=== PATIENT | male | born 1955 | race Caucasian/White ===

== ENCOUNTER 2023-10-31 09:04 | Inpatient (IN) ==
[2023-10-31] MEDS ORDERED: KETOROLAC TROMETHAMINE 15 MG/ML VIAL IV ONE (09:21)
[2023-10-31] MEDS ORDERED: SODIUM CHLORIDE 0.9% 500 ML IV STA (09:21)
--- NOTE | 2023-10-31 09:26 | Emergency Department Note ---
History of Present Illness General Chief complaint: Flank Pain Stated complaint: FLANK PAIN, BACK PAIN Time Seen by Provider: 10/31/23 09:12 Source: patient, family ( was at the bedside and driving), RN notes reviewed and old records reviewed Mode of arrival: ambulatory Limitations: no limitations History of Present Illness Maximum Pain Intensity: 8 This patient is a 68-year-old male who comes in after having right-sided flank pain which goes around to his groin. He tells me he has a known kidney stone there. He did have hematuria about a month ago a couple times but none recently no dysuria no fall or trauma he woke up today also feeling dizzy he does get vertigo and took meclizine and said he felt better. He says he gets it if he lays a certain way which he did. No chest pain or shortness of breath. No fever. His blood sugar was 150s this morning. 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 He has not had any imaging of his belly recently for stones. Home Medications Medication Instructions Recorded Confirmed Type omega-3 fatty acids-vitamin E 1 cap PO BID ##0 07/13/09 10/31/23 History 1,000 mg capsule [id number] 300 mcg-K 60 1 tab PO DAILY ##0 04/22/15 10/31/23 History mcg-lycop 600 mcg-lutein 300 mcg tablet (Centrum Silver Ultra Men's) atorvastatin 80 mg tablet 80 mg PO DAILY 10/31/23 10/31/23 History fenofibrate micronized 134 mg 134 mg PO QAM 10/31/23 10/31/23 History capsule ibuprofen 800 mg tablet 800 mg PO Q8H PRN Pain 10/31/23 10/31/23 History insulin aspart U-100 100 unit/mL See Rx Instructions .Route .COMPLEX 10/31/23 10/31/23 History (3 mL) subcutaneous pen (Novolog FlexPen U-100 Insulin aspart) insulin detemir U-100 100 unit/mL 65 unit subcut DAILY 10/31/23 10/31/23 History (3 mL) subcutaneous pen (Levemir FlexPen) lisinopril 30 mg tablet 30 mg PO QAM 10/31/23 10/31/23 History meclizine 25 mg tablet 25 mg PO TID PRN Vertigo 10/31/23 10/31/23 History metformin 1,000 mg tablet 1,000 mg PO BID 10/31/23 10/31/23 History semaglutide 2 mg/dose (8 mg/3 mL) 2 mg subcut WK 10/31/23 10/31/23 History subcutaneous pen injector (Ozempic) Allergies Allergy/AdvReac Type Severity Reaction Status Date / Time codeine Allergy Unknown PER PT, Verified 10/31/23 13:40 HAS TOLERATED PERCOCET morphine Allergy Unknown Unknown Verified 10/31/23 13:40 Past Med/Surg History Medical History Dyslipidemia HTN (hypertension) DM (diabetes mellitus), type 2 Surgical History H/O hand surgery S/P hip replacement Family History Other Heart disease Liver disease Social History Smoking Status: Never smoker Hx Alcohol Use: Yes Alcohol Intake Frequency: 2-4 x/Month Hx Substance Use: No Feels Safe at Home: Yes Immunizations: Past med historydiabetes, new problems, kidney stones. He is on no blood thinners Social history does not smoke or drink. Is followed locally by Dr. Waddell at [facility] . he does not have a local urology Review of Systems A total of 10 systems reviewed and were otherwise negative Physical Exam Vital Signs Vital Signs - 24 hr 10/31/23 09:08 10/31/23 11:49 10/31/23 11:51 Temperature 36.1 C L 36.6 C Temperature Source Temporal Artery Scan Oral Pulse Rate 76 Pulse Rate [Apical] 66 Pulse Rate [Left Finger] Pulse Rhythm [Apical] Regular Pulse Rhythm [Left Finger] Pulse Strength [Apical] Normal Pulse Strength [Left Finger] Respiratory Rate 16 18 Respiratory Effort / Characteristics Non-Labored Non-Labored Spontaneous Respiratory Depth Normal Normal Respiratory Pattern Regular Blood Pressure 185/95 H Blood Pressure [Left Arm] 151/80 H Blood Pressure Mean 125 Blood Pressure Mean [Left Arm] 103 Blood Pressure Position [Left Arm] Pulse Oximetry 96 94 94 Oxygen Delivery Method Room Air Room Air Sepsis Recent Fever Within 48 Hours No Sepsis New/Unexplained Change in Mental Status N/A Sepsis Action Taken by Nursing No Action Required 10/31/23 12:08 10/31/23 13:16 10/31/23 13:28 Temperature 36.3 C L 36.5 C Temperature Source Oral Oral Pulse Rate 71 Pulse Rate [Apical] 73 Pulse Rate [Left Finger] 70 Pulse Rhythm [Apical] Regular Pulse Rhythm [Left Finger] Regular Pulse Strength [Apical] Normal Pulse Strength [Left Finger] Normal Respiratory Rate 18 20 Respiratory Effort / Characteristics Non-Labored Spontaneous Non-Labored Spontaneous Respiratory Depth Normal Normal Respiratory Pattern Regular Regular Blood Pressure Blood Pressure [Left Arm] 167/76 H 162/76 H Blood Pressure Mean Blood Pressure Mean [Left Arm] 106 104 Blood Pressure Position [Left Arm] Sitting Pulse Oximetry 96 97 Oxygen Delivery Method Room Air Sepsis Recent Fever Within 48 Hours Sepsis New/Unexplained Change in Mental Status Sepsis Action Taken by Nursing General: Well developed well nourished older male who appears in no acute distress, breathing comfortably on room air. Normal speech HEENT: Normal cephalic atraumatic. Pupils are equal round and reactive to light. Extraocular movements are intact. Oropharynx is pink with moist mucous membranes. No swelling of the mouth lips or tongue. Neck: Supple with a midline trachea. No meningeal signs or stiffness, no JVD or bruits. No Stridor. Chest: Clear to auscultation bilaterally. No wheezes or rhonchi. No increased work of breathing. Heart: Regular rate and rhythm without murmurs or gallops. Abdomen: Soft nontender, nondistended without rebound guarding or rigidity. Extremities: No cyanosis clubbing or edema. No calf tenderness or assymetry Spine/Back. Non tender to palpation. No CVA tenderness Skin: Good turgor without rashes. Neurologic exam: Cranial nerves two through 12 are intact. Motor and sensation are intact and symmetrical throughout. Course Administered Medications Sodium Chloride (Nss) 1,000 mls @ 125 mls/hr IV .Q8H [facility] Stop: 10/31/23 20:44 Last Admin: 10/31/23 13:10 Dose: 125 mls/hr Documented By: GGG Discontinued Medications Cefazolin Sodium (Cefazolin 2,000 Mg/15 Ml Iv Push) Confirm Administered Dose 2,000 mg IV .[facility] Stop: 10/31/23 13:57 Last Admin: 10/31/23 14:27 Dose: Not Given Documented By: HBM Sodium Chloride (Nss) 500 mls @ 999 mls/hr IV .Q31M STA Stop: 10/31/23 09:51 Last Infusion: 10/31/23 10:17 Dose: Infused Documented By: Admin: 10/31/23 09:32 Dose: 999 mls/hr Documented By: CHARLES Cefazolin Sodium (Ancef 2000mg) 2,000 mg in 15 mls @ 3.75 mls/min IV PREOP@1400 ONE; Protocol Stop: 10/31/23 14:03 Last Admin: 10/31/23 14:23 Dose: 3.75 mls/min Documented By: REBA Ketorolac Tromethamine (Ketorolac Tromethamine 15 Mg/Ml Vial) 10 mg IV NOW ONE Stop: 10/31/23 09:22 Last Admin: 10/31/23 09:32 Dose: 10 mg Documented By: CHARLES Tamsulosin HCl (Tamsulosin Hcl 0.4 Mg Cap) 0.4 mg PO NOW ONE Stop: 10/31/23 12:42 Last Admin: 10/31/23 13:07 Dose: 0.4 mg Documented By: SHERYL Medical Decision Making Differential Diagnosis Kidney stone, UTI/kidney infection, electrolyte or metabolic abnormality, musculoskeletal, appendicitis, aneurysm, colitis, cardiac disease, vertigo Medical Records Attestation: I reviewed the patient's medical records. Home Medications Current Medication List: was personally reviewed by me Laboratory Data Attestation: I reviewed the patient's lab results. 10/31/23 09:29 10/31/23 09:29 Lab Results 10/31/23 10/31/23 Range/Units 09:29 13:15 WBC 11.83 H (4.8-10.8) K/ul RBC 4.72 (4.70-6.10) M/uL Hgb 14.5 (14.0-18.0) g/dl Hct 42.7 (42.0-52.0) % MCV 90.5 (80.0-100.0) fL MCH 30.7 (25.0-34.0) pg MCHC 34.0 (32.0-36.0) g/dL RDW Std Deviation 44.7 (36.4-46.3) fL RDW Coeff of Vimal 13.4 (11.5-14.5) % Plt Count 164 (130-400) K/uL MPV 10.1 (9.4-12.4) fL Immature Gran % (Auto) 0.3 % Neut % (Auto) 54.3 % Lymph % (Auto) 35.2 % [place] % (Auto) 9.1 % Eos % (Auto) 0.8 % Baso % (Auto) 0.3 % Neut # (Auto) 6.42 (1.40-6.50) K/uL Lymph # (Auto) 4.16 H (1.20-3.40) K/uL [place] # (Auto) 1.08 H (0.11-0.59) K/uL Eos # (Auto) 0.10 (0.00-0.50) K/uL Baso # (Auto) 0.03 (0.00-0.20) K/uL Immature Gran # (Auto) 0.04 (0.01-0.20) K/uL Sodium 139 (136-145) mmol/L Potassium 4.4 (3.5-5.1) mmol/L Chloride 105 (98-107) mmol/L Carbon Dioxide 23 (21-32) mmol/L Anion Gap 11 (3-11) BUN 20 (6-23) mg/dl Creatinine 1.38 (0.6-1.4) mg/dl Est Cr Clr Drug Dosing 62.0 ml/min Est GFR ( Amer) 59.6 ml/min Est GFR (Non-Af Amer) 51.4 ml/min BUN/Creatinine Ratio 14.5 (10-20) Glucose 178 H (70-99(Fasting)) mg/dl POC Glucose 103 H (70-99) mg/dl Calcium 9.7 (8.6-10.3) mg/dl Total Bilirubin 0.7 (0.2-1.0) mg/dl AST 31 (13-39) U/L ALT 45 (7-52) U/L Alkaline Phosphatase 37 (34-104) U/L Troponin I High Sens 5.7 (0-20) pg/ml Total Protein 7.7 (6.0-8.3) gm/dl Albumin 4.6 (3.4-5.0) gm/dl Globulin 3.1 (2.5-4.0) gm/dl Albumin/Globulin Ratio 1.5 (0.9-2) Lipase 42 (11-82) U/L Urine Color Yellow Urine Appearance Clear (Clear) Urine pH 5.5 (4.5-7.5) Ur Specific [place] 1.020 (1.000-1.030) Urine Protein Trace H (Negative) Urine Glucose (UA) 1+ H (Negative) Urine Ketones Negative (Negative) Urine Blood 3+ H (Negative) Urine Nitrite Negative (Negative) Urine Bilirubin Negative (Negative) Urine Urobilinogen Negative (Negative) Ur Leukocyte Esterase Negative (Negative) Urine WBC (Auto) 1-5 (0-5) /hpf Urine RBC (Auto) 10-30 H (0-4) /hpf U Hyaline Cast (Auto) 1-5 (0-5) /lpf U Epithel Cells (Auto) 0-5 (0-5) /lpf Urine Bacteria (Auto) Negative (Negative) Imaging Data Attestation: I personally reviewed and interpreted this imaging study as follows: My Impression: CT stone studythere is a proximal right ureteral stone. Radiologist's Impression: Abdomen/Pelvis CT 10/31/23 09:21 CT SCAN OF THE ABDOMEN AND PELVIS WITHOUT IV CONTRAST CLINICAL HISTORY: Right-sided flank pain. COMPARISON STUDY: Abdominal CT dated 07/13/2009 TECHNIQUE: CT scan of the abdomen and pelvis is performed from the lung bases to the proximal femora. Images are reviewed in the axial, sagittal, and coronal planes. IV contrast was not administered for this examination. A dose lowering technique was utilized adhering to the principles of ALARA. CT DOSE: 1497.43 mGy.cm FINDINGS: Lung bases: The heart is normal in size and without pericardial effusion. The coronary arteries are densely calcified. The lung bases are clear. Liver: The unenhanced liver is enlarged, measuring 19.3 cm in length. The liver demonstrates diffusely diminished attenuation indicating steatosis. Fatty sparing is seen adjacent to the gallbladder fossa. There is no intrahepatic biliary ductal dilatation. Gallbladder: Unremarkable. Spleen: Normal in size and attenuation. Pancreas: Unremarkable. Adrenal glands: Unremarkable. Kidneys: The unenhanced kidneys are normal in size. There is a 10 mm obstructing calculus in the right proximal ureter seen on image #173. This is located at the level of L3 and causes moderate right hydronephrosis. There is associated right- sided perinephric stranding and trace fluid. There are at least 3 additional nonobstructing right renal calculi which measure up to 5 mm. No left renal calculi are identified and there is no left hydronephrosis. There is no evidence of contour deforming renal mass lesion. Abdominal vasculature: The abdominal aorta is normal in course and caliber noting moderate atherosclerotic calcification. Bowel: There is moderate colonic diverticulosis without CT evidence of acute diverticulitis. No bowel obstruction is seen. A chronically torsed epiploic appendage is suggested adjacent to the sigmoid colon on image #257. The appendix is well-visualized and normal. Peritoneum: There is no intraperitoneal free air or abdominal ascites. Lymphadenopathy: There is haziness at the central mesentery with prominent subcentimeter mesenteric lymph nodes. No pathologically enlarged lymph nodes are identified in the abdomen or pelvis. Pelvic viscera: Evaluation of the pelvis is degraded by streak artifact from a left hip arthroplasty. The prostate gland is diminutive and heterogeneous. The bladder wall is thickened/trabeculated suggesting chronic outlet obstruction. There are small bilateral fat-containing inguinal hernias. Skeletal structures: The skeletal structures are osteopenic. There is mild to moderate lumbosacral spondylosis. No lytic or blastic lesions are seen. A left hip arthroplasty is in place. Arthritic changes seen of the right hip as well as the sacroiliac joints. There are chronic/healed right-sided rib fractures. IMPRESSION: 1. There is a 10 mm obstructing calculus in the right proximal ureter. This causes moderate right hydronephrosis. 2. Additional nonobstructing right renal calculi as above. 3. Hepatomegaly and hepatic steatosis. 4. There is nonspecific haziness throughout the central mesentery with prominent subcentimeter lymph nodes. This was not seen on 07/13/2009 and could represent a nonspecific panniculitis. Consider a precautionary follow-up abdominal CT scan in 6-12 months time for reassessment. 5. Additional findings as above. ACT 112: Negative or not required by law. Electronically signed by: Chapin Scott M.D. 10/31/2023 10:08 AM ECG Data Attestation: I personally reviewed and interpreted this ECG as follows: Indication: + weakness Rate (beats per minute): 71 Rhythm: + normal sinus ECG Intervals/blocks: + Normal QRS, + Normal QT and + Normal [place] ECG [place]: + Normal ECG ST segments: + Normal ST segments ECG Findings: no PACs or no PVCs Comparison ECG Date: from (12/19/2014) Change: no significant change MDM Narrative This patient comes in described above he was placed in room C3 he has been having right flank pain he says he had intermittently for about a month he has a known kidney stone although has not passed one for many years. No hematuria present but he had some earlier in the month. Also felt dizzy this morning otherwise feeling better after taking his meclizine. He has stable vital signs. IV access was established and he was hydrated with IV 500 cc normal saline bolus, he was given Toradol 10 mg IV. I did order multiple blood testing as well as CAT scan. An EKG was also obtained given dizziness as well as a troponin. His EKG does not have any ischemic changes or significant arrhythmia and no change compared to old. His troponin was not elevated and I do not think is likely cardiac. He has nothing to suggest infection based on his urine vital signs history and normal white count. His CAT scan does shows a large proximal stone. I did consult Marie from [facility] urology and she can come talk to the patient to discuss his options. He seems to doing much better with the Toradol. They have discussed the care with the patient and they are going to admit him for stent later today and asked the medical team to do the admission. [facility] going to [facility] the patient and admit the patient for further inpatient treatment and evaluation. Impression & Plan Kidney stone on right side, Flank Pain, Dizziness, Renal colic on right side Discharge Plan Visit Data Chief Complaint: Flank Pain Stated Complaint: FLANK PAIN, BACK PAIN ED Provider: Samuel Crane Discharge Problem: Kidney stone on right side, Flank Pain, Dizziness, Renal colic on right side Patient Disposition: Admitted As Inpatient Discharge Instructions Interventions: ED Discharge Assessment Last Done: 10/31/23 13:22 Forms Stand Alone Forms: My [facility] Prescriptions Prescriptions: No Action Fish Oil 1,000 mg Capsule 1 cap PO BID Qty: 0 Centrum Silver Ultra Men's [id number] mcg Tablet 1 tab PO DAILY Qty: 0 atorvastatin 80 mg tablet 80 mg PO DAILY ibuprofen 800 mg tablet 800 mg PO Q8H PRN (Reason: Pain) fenofibrate micronized 134 mg capsule 134 mg PO QAM metformin 1,000 mg tablet 1,000 mg PO BID lisinopril 30 mg tablet 30 mg PO QAM insulin aspart U-100 [Novolog FlexPen U-100 Insulin] 100 unit/mL (3 mL) insulin pen See Rx Instructions .ROUTE .COMPLEX Rx Instructions: inject 24 units under the skin with breakfast and 20 units with lunch and 30 units with supper. Per sliding scale Levemir FlexPen 100 unit/mL (3 mL) insulin pen 65 unit SUBCUT DAILY Ozempic 2 mg/dose (8 mg/3 mL) pen injector 2 mg SUBCUT WK Rx Instructions: takes on Friday meclizine 25 mg Tablet 25 mg PO TID PRN (Reason: Vertigo) Referrals Referrals: PCP,NO [Physician] -
[2023-10-31 09:50] LABS: Appearance Urine Clear (Clear); Bacteria Urine Automated Negative (Negative); Bilirubin Urine Negative (Negative); Blood Urine 3+ (Negative); Color Urine Yellow; Epithelial Cell Urine Auto 0-5 /lpf (0-5); Glucose Urine UA 1+ (Negative); Ketones Urine Negative (Negative); Leukocyte Esterase Urine Negative (Negative); Nitrite Urine Negative (Negative); Protein Urine Trace (Negative); Urobilinogen Urine Negative (Negative); pH Urine 5.5 (4.5-7.5)
[2023-10-31 09:53] LABS: Basophils # (auto) 0.03 K/uL (0.00-0.20); Basophils % (auto) 0.3 %; Eosinophils % (auto) 0.8 %; Hematocrit (blood only) 42.7 % (42.0-52.0); Hemoglobin 14.5 g/dl (14.0-18.0); Immature Granulocytes # (auto) 0.04 K/uL (0.01-0.20); Immature Granulocytes % (auto) 0.3 %; Lymphocytes # (auto) 4.16 K/uL (1.20-3.40); Lymphocytes % (auto) 35.2 %; Mean Corpuscular Hemoglobin 30.7 pg (25.0-34.0); Mean Corpuscular Volume 90.5 fL (80.0-100.0); Mean Platelet Volume 10.1 fL (9.4-12.4); Monocytes # (auto) 1.08 K/uL (0.11-0.59); Monocytes % (auto) 9.1 %; Neutrophils # (auto) 6.42 K/uL (1.40-6.50); Neutrophils % (auto) 54.3 %; Platelet Count 164 K/uL (130-400); RDW Coefficient of Variation 13.4 % (11.5-14.5); RDW Standard Deviation 44.7 fL (36.4-46.3); Red Blood Count 4.72 M/uL (4.70-6.10); White Blood Count 11.83 K/ul (4.8-10.8)
[2023-10-31 10:10] LABS: Albumin Globulin Ratio 1.5 (0.9-2); Albumin Level 4.6 gm/dl (3.4-5.0); BUN Creatinine Ratio 14.5 (10-20); Bilirubin,Total 0.7 mg/dl (0.2-1.0); Calcium 9.7 mg/dl (8.6-10.3); Est GFR (African American) 59.6 ml/min; Est GFR (Non-African American) 51.4 ml/min; Globulin 3.1 gm/dl (2.5-4.0); Potassium 4.4 mmol/L (3.5-5.1); Total Protein 7.7 gm/dl (6.0-8.3)
--- NOTE | 2023-10-31 10:10 | CT Scan Report ---
CT SCAN OF THE ABDOMEN AND PELVIS WITHOUT IV CONTRAST CLINICAL HISTORY: Right-sided flank pain. COMPARISON STUDY: Abdominal CT dated 07/13/2009 TECHNIQUE: CT scan of the abdomen and pelvis is performed from the lung bases to the proximal femora. Images are reviewed in the axial, sagittal, and coronal planes. IV contrast was not administered for this examination. A dose lowering technique was utilized adhering to the principles of ALARA. CT DOSE: 1497.43 mGy.cm FINDINGS: Lung bases: The heart is normal in size and without pericardial effusion. The coronary arteries are d ensely calcified. The lung bases are clear. Liver: The unenhanced liver is enlarged, measuring 19.3 cm in length. The liver demonstrates diffusel y diminished attenuation indicating steatosis. Fatty sparing is seen adjacent to the gallbladder loi a. There is no intrahepatic biliary ductal dilatation. Gallbladder: Unremarkable. Spleen: Normal in size and attenuation. Pancreas: Unremarkable. Adrenal glands: Unremarkable. Kidneys: The unenhanced kidneys are normal in size. There is a 10 mm obstructing calculus in the righ t proximal ureter seen on image #173. This is located at the level of L3 and causes moderate right hy dronephrosis. There is associated right-sided perinephric stranding and trace fluid. There are at [address] 3 additional nonobstructing right renal calculi which measure up to 5 mm. No left renal calculi ar e identified and there is no left hydronephrosis. There is no evidence of contour deforming renal mas s lesion. Abdominal vasculature: The abdominal aorta is normal in course and caliber noting moderate atheroscle rotic calcification. Bowel: There is moderate colonic diverticulosis without CT evidence of acute diverticulitis. No bowel obstruction is seen. A chronically torsed epiploic appendage is suggested adjacent to the sigmoid co phillip on image #257. The appendix is well-visualized and normal. Peritoneum: There is no intraperitoneal free air or abdominal ascites. Lymphadenopathy: There is haziness at the central mesentery with prominent subcentimeter mesenteric l ymph nodes. No pathologically enlarged lymph nodes are identified in the abdomen or pelvis. Pelvic viscera: Evaluation of the pelvis is degraded by streak artifact from a left hip arthroplasty. The prostate gland is diminutive and heterogeneous. The bladder wall is thickened/trabeculated sugge sting chronic outlet obstruction. There are small bilateral fat-containing inguinal hernias. Skeletal structures: The skeletal structures are osteopenic. There is mild to moderate lumbosacral sp ondylosis. No lytic or blastic lesions are seen. A left hip arthroplasty is in place. Arthritic ambrose es seen of the right hip as well as the sacroiliac joints. There are chronic/healed right-sided rib f ractures. IMPRESSION: 1. There is a 10 mm obstructing calculus in the right proximal ureter. This causes moderate right hyd ronephrosis. 2. Additional nonobstructing right renal calculi as above. 3. Hepatomegaly and hepatic steatosis. 4. There is nonspecific haziness throughout the central mesentery with prominent subcentimeter lymph nodes. This was not seen on 07/13/2009 and could represent a nonspecific panniculitis. Consider a prec autionary follow-up abdominal CT scan in 6-12 months time for reassessment. 5. Additional findings as above. ACT 112: Negative or not required by law. Electronically signed by: Chapin Scott M.D. 10/31/2023 10:08 AM
[2023-10-31 10:15] LABS: Troponin I High Sensitivity 5.7 pg/ml (0-20)
[2023-10-31] MEDS ORDERED: POLYETHYLENE (MIRALAX) 17 GM PACK PO PRN (11:55)
[2023-10-31] MEDS ORDERED: ONDANSETRON INJ 2 MG/ML 2 ML VIAL IV PRN ×2 (11:55→14:06)
[2023-10-31] MEDS ORDERED: ACETAMINOPHEN 500 MG TAB PO PRN (11:55)
--- NOTE | 2023-10-31 11:55 | History & Physical Report ---
Date of Service October 31, 2023 Assessment & Plan (1) Hydronephrosis with urinary obstruction due to ureteral calculus: (2) Renal colic on right side: Plan: This is a 68-year-old male with PMH of type 2 diabetes, hyperlipidemia, hypertension, history of fatty liver disease, osteoarthritis and other medical problems as below presents from home with flank pain and was found to have obstructing R ureteral stone. Progressively worsening R flank pain and renal colic over the past week Afebrile, mild leukocytosis at 11K, UA with 3+ urine blood, no evidence of infection CT abd/pelvis with a 10 mm obstructing calculus in the right proximal ureter. This causes moderate right hydronephrosis Urology evaluating in ED, keep NPO, IV fluids, bladder scan PRN, Flomax, PRN Pyridium, pain control (3) SHANEL (acute kidney injury): Plan: Cr elevated at 1.38 today (baseline ~ 1.0) 2/2 ureteral obstruction as above Hold AM lisinopril until repeat BMP in AM (4) DM (diabetes mellitus), type 2: Plan: A1c 8.0 on 10/03/23 Continue basal/bolus insulin regimen while in-patient Holding Ozempic BSG AC HS (5) HTN (hypertension): Plan: Elevated 2/2 pain. Not on any antihypertensives at home. Added PRN PO hydralazine (6) Abnormal CT of the abdomen: Plan: CT abd/pelvis with incidental finding of hepatomegaly and hepatic steatosis. Also with nonspecific haziness throughout the central mesentery with prominent subcentimeter lymph nodes. This was not seen on 07/13/2009 and could represent a nonspecific panniculitis. Consider a precautionary follow-up abdominal CT scan in 6-12 months time for reassessment (7) Dyslipidemia: Plan: Chronic, stable. Continue statin DVT Ppx: SCDs in preparation for possible OR Code status: FULL PCP: [facility] Dispo: Admit to med/surg Patient seen in collaboration with Dr. Marroquin. Please see addendum. History of Present Illness Chief Complaint: Flank pain Primary Care Provider: NO PCP This is a 68-year-old male with PMH of type 2 diabetes, hyperlipidemia, hypertension, history of fatty liver disease, osteoarthritis and other medical problems as below presents from home with flank pain. Developed pain of lower R back radiating forward to flank and R side of bladder that has progressed in severity over the past few days, prompting his visit to the ED. Pain has improved with Toradol in ED and mainly recurs with movement. Increased urinary urgency. In the past month, he reports 2 episodes of hematuria but has not noted any today. H/o kidney stones years ago. + Nauseated this morning but no vomiting. No fever, lightheadedness, headache, CP, SOB, abd pain, dysuria. No bowel movement in 2 days. Had episode of vertigo when he rolled over in bed and it resolved after repositioning a dose of meclizine. Allergies Allergy/AdvReac Type Severity Reaction Status Date / Time codeine Allergy Unknown PER PT, Verified 10/31/23 13:40 HAS TOLERATED PERCOCET morphine Allergy Unknown Unknown Verified 10/31/23 13:40 Home Medications Medication Instructions Recorded Confirmed Type omega-3 fatty acids-vitamin E 1 cap PO BID ##0 07/13/09 10/31/23 History 1,000 mg capsule [id number] 300 mcg-K 60 1 tab PO DAILY ##0 04/22/15 10/31/23 History mcg-lycop 600 mcg-lutein 300 mcg tablet (Centrum Silver Ultra Men's) atorvastatin 80 mg tablet 80 mg PO DAILY 10/31/23 10/31/23 History fenofibrate micronized 134 mg 134 mg PO QAM 10/31/23 10/31/23 History capsule ibuprofen 800 mg tablet 800 mg PO Q8H PRN Pain 10/31/23 10/31/23 History insulin aspart U-100 100 unit/mL See Rx Instructions .Route .COMPLEX 10/31/23 10/31/23 History (3 mL) subcutaneous pen (Novolog FlexPen U-100 Insulin aspart) insulin detemir U-100 100 unit/mL 65 unit subcut DAILY 10/31/23 10/31/23 History (3 mL) subcutaneous pen (Levemir FlexPen) lisinopril 30 mg tablet 30 mg PO QAM 10/31/23 10/31/23 History meclizine 25 mg tablet 25 mg PO TID PRN Vertigo 10/31/23 10/31/23 History metformin 1,000 mg tablet 1,000 mg PO BID 10/31/23 10/31/23 History semaglutide 2 mg/dose (8 mg/3 mL) 2 mg subcut WK 10/31/23 10/31/23 History subcutaneous pen injector (Ozempic) Past Med/Surg History Medical History Dyslipidemia HTN (hypertension) DM (diabetes mellitus), type 2 Surgical History H/O hand surgery S/P hip replacement Family History Other Heart disease Liver disease Social History Smoking Status: Never smoker Hx Alcohol Use: Yes Alcohol Intake Frequency: 2-4 x/Month Hx Substance Use: No Feels Safe at Home: Yes Review of Systems Review of Systems: At least ten systems reviewed and negative except as noted in the HPI. Physical Exam Physical Exam: Please see Dr. Marroquin's addendum for physical exam. Results & Data Results & Data Vital Signs (Past 12 Hours) Vital Signs Temp Pulse Pulse Resp BP BP Pulse Ox 10/31/23 11:51 94 10/31/23 11:49 36.6 C 66 18 151/80 H 94 10/31/23 09:08 36.1 C L 76 16 185/95 H 96 O2 Del Method 10/31/23 11:51 Room Air 10/31/23 11:49 Room Air 10/31/23 09:08 Laboratory Results Abdomen/Pelvis CT 10/31/23 09:21 CT SCAN OF THE ABDOMEN AND PELVIS WITHOUT IV CONTRAST CLINICAL HISTORY: Right-sided flank pain. COMPARISON STUDY: Abdominal CT dated 07/13/2009 TECHNIQUE: CT scan of the abdomen and pelvis is performed from the lung bases to the proximal femora. Images are reviewed in the axial, sagittal, and coronal planes. IV contrast was not administered for this examination. A dose lowering technique was utilized adhering to the principles of ALARA. CT DOSE: 1497.43 mGy.cm FINDINGS: Lung bases: The heart is normal in size and without pericardial effusion. The coronary arteries are densely calcified. The lung bases are clear. Liver: The unenhanced liver is enlarged, measuring 19.3 cm in length. The liver demonstrates diffusely diminished attenuation indicating steatosis. Fatty sparing is seen adjacent to the gallbladder fossa. There is no intrahepatic biliary ductal dilatation. Gallbladder: Unremarkable. Spleen: Normal in size and attenuation. Pancreas: Unremarkable. Adrenal glands: Unremarkable. Kidneys: The unenhanced kidneys are normal in size. There is a 10 mm obstructing calculus in the right proximal ureter seen on image #173. This is located at the level of L3 and causes moderate right hydronephrosis. There is associated right- sided perinephric stranding and trace fluid. There are at least 3 additional nonobstructing right renal calculi which measure up to 5 mm. No left renal calculi are identified and there is no left hydronephrosis. There is no evidence of contour deforming renal mass lesion. Abdominal vasculature: The abdominal aorta is normal in course and caliber noting moderate atherosclerotic calcification. Bowel: There is moderate colonic diverticulosis without CT evidence of acute diverticulitis. No bowel obstruction is seen. A chronically torsed epiploic appendage is suggested adjacent to the sigmoid colon on image #257. The appendix is well-visualized and normal. Peritoneum: There is no intraperitoneal free air or abdominal ascites. Lymphadenopathy: There is haziness at the central mesentery with prominent subcentimeter mesenteric lymph nodes. No pathologically enlarged lymph nodes are identified in the abdomen or pelvis. Pelvic viscera: Evaluation of the pelvis is degraded by streak artifact from a left hip arthroplasty. The prostate gland is diminutive and heterogeneous. The bladder wall is thickened/trabeculated suggesting chronic outlet obstruction. There are small bilateral fat-containing inguinal hernias. Skeletal structures: The skeletal structures are osteopenic. There is mild to moderate lumbosacral spondylosis. No lytic or blastic lesions are seen. A left hip arthroplasty is in place. Arthritic changes seen of the right hip as well as the sacroiliac joints. There are chronic/healed right-sided rib fractures. IMPRESSION: 1. There is a 10 mm obstructing calculus in the right proximal ureter. This causes moderate right hydronephrosis. 2. Additional nonobstructing right renal calculi as above. 3. Hepatomegaly and hepatic steatosis. 4. There is nonspecific haziness throughout the central mesentery with prominent subcentimeter lymph nodes. This was not seen on 07/13/2009 and could represent a nonspecific panniculitis. Consider a precautionary follow-up abdominal CT scan in 6-12 months time for reassessment. 5. Additional findings as above. ACT 112: Negative or not required by law. Electronically signed by: Chapin Scott M.D. 10/31/2023 10:08 AM Diagnostic Findings Short CBC 10/31/23 Range/Units 09:29 WBC 11.83 H (4.8-10.8) K/ul Hgb 14.5 (14.0-18.0) g/dl Hct 42.7 (42.0-52.0) % Plt Count 164 (130-400) K/uL BMP 10/31/23 09:29 Sodium 139 Potassium 4.4 Chloride 105 Carbon Dioxide 23 BUN 20 Creatinine 1.38 Glucose 178 H Calcium 9.7 Liver Function 10/31/23 Range/Units 09:29 Total Bilirubin 0.7 (0.2-1.0) mg/dl AST 31 (13-39) U/L ALT 45 (7-52) U/L Alkaline Phosphatase 37 (34-104) U/L Albumin 4.6 (3.4-5.0) gm/dl Urine 10/31/23 Range/Units 09:29 Urine Color Yellow Urine Appearance Clear (Clear) Urine pH 5.5 (4.5-7.5) Ur Specific [place] 1.020 (1.000-1.030) Urine Protein Trace H (Negative) Urine Glucose (UA) 1+ H (Negative) ECG Additional Comments: EKG independently reviewed: NSR, possible anterior infarct previously noted, no significant change Supervising Physician Co-Signing Physician Notes Patient is a 68 yr male with history of hypertension, diabetes mellitus and other medical problems presents with history of right flank pain radiating to groin associated with bladder pressure pressure like sensation which has been gradually worsening for the past few days. Patient admits to have increased urinary frequency, intermittent hematuria but denies any fever, chills, chest pain, dyspnea. Please review HPI for complete details of presentation. Blood work suggestive of leukocytosis 11.83 K. Glucose elevated at 178. Creatinine elevated at 1.38. UA not suggestive of UTI. CT abdomen showed 10 mm obstructing calculus in the right proximal ureter and moderate right hydronephrosis. Also noted hepatomegaly and hepatic steatosis, incidental mesenteric lymph nodes. EKG showed normal sinus rhythm, nonspecific ST-T wave changes in anterior leads, QTc 404. Physical Exam: Vitals signs as noted above General Appearance:Obese, no apparent distress Head: normocephalic, Atraumatic Eyes: normal inspection, EOMI Neck: supple, Trachea midline Respiratory/Chest: Normal breath sounds, CTA, No accessory muscle use Cardiovascular: S1, S2, No murmur Abdomen/GI:Soft, Non tender, + protuberant, bowel sounds present Extremities/Musculoskeletal:normal inspection, no edema Neurologic/Psych:AAOX3, grossly no focal neurological deficits Skin: normal color, warm Right renal colic Obstructive uropathy SHANEL Urology consulted for possible stent placement Pain controlled Avoid NSAIDs, nephrotoxic agents as able Continue IV fluids Currently no indication for antibiotics Flomax started I personally reviewed the record. Patient is interviewed and examined at bedside. Patient's care is coordinated with Kristen Candelario PA-C. Please refer to the documentation above for details of patient's presentation and for discussion of other issues.
[2023-10-31] MEDS ORDERED: oxyCODONE HCL IR 5 MG TAB (IMMEDIATE RELEASE) PO PRN (12:40)
[2023-10-31] MEDS ORDERED: TAMSULOSIN HCL 0.4 MG CAP PO ONE (12:41)
[2023-10-31] MEDS ORDERED: PHENAZOPYRIDINE HCL 200 MG TAB PO PRN (12:41)
[2023-10-31] MEDS ORDERED: DEXTROSE 50% 50 ML SYRINGE IV PRN (12:43)
[2023-10-31] MEDS ORDERED: GLUCOSE 10 TAB/TUBE PO PRN (12:43)
[2023-10-31] MEDS ORDERED: GLUCOSE 40% GEL 15 GM TUBE PO PRN (12:43)
[2023-10-31] MEDS ORDERED: GLUCAGON FOR INJ 1 MG VIAL SQ PRN (12:43)
[2023-10-31] MEDS ORDERED: CARBOHYDRATES FOR HYPOGLYCEMIA PO PRN (12:43)
[2023-10-31] MEDS ORDERED: SODIUM CHLORIDE 0.9% 1,000 ML IV SCH (12:45)
--- NOTE | 2023-10-31 13:13 | Urology Consultation ---
Date of Consultation October 31, 2023 Assessment & Plan (1) Hydronephrosis with urinary obstruction due to ureteral calculus: (2) Renal colic on right side: Plan 68-year-old male admitted with intractable right flank pain secondary to a 10 mm obstructing right ureteral stone. We discussed options for acute stone management and stent placement. Ureteral stents were discussed as well as postoperative issues and pain management. He is aware second procedure will be needed for stone treatment. Risks and benefits were discussed. All questions were answered. Will plan to proceed to OR today for cystoscopy, right retrograde pyelogram, right ureteral stent placement. Risks and benefits to be reviewed with patient by Dr. Anglin. Keep NPO. Will cover with IV Ancef preoperatively. Continue supportive care and pain management. Urology will follow. Supervising Physician Co-Signing Physician Notes Discussed patient with MIREILLE. Agree with plan. Plan to go the OR for cystoscopy with right stent. Consent obtained. Patient marked History of Present Illness History of Present Illness 68-year-old male with PMH of type 2 diabetes, hyperlipidemia, hypertension, history of fatty liver disease, and osteoarthritis who presented to the ED today with flank pain. Patient reported intermittent flank pain varying in severity over the past few days. On arrival he was afebrile and hemodynamically stable. Labs show mild leukocytosis of 11.83 and normal renal function. Urinalysis with 3+ blood, negative nitrite, negative bacteria, negative leukocytes. CT abdomen pelvis obtained and demonstrated a 10 mm obstructing calculus in the right proximal ureter with moderate right hydronephrosis. Pain initially improved with Toradol in the ED however recurred with movement. Patient was admitted to medicine service for pain management. Patient examined at bedside in the ED. Awake, resting bed arrival. No acute distress. at bedside. Pain is controlled when lying still, but increases with movement. Denies fevers, chills, nausea, vomiting at present. He did experience some nausea at home. Voiding without issue. Denies hematuria or dysuria. Had some Gatorade around 7:30 AM. He does report a history of stones with prior intervention and stent placement. Reports he tolerated the stent well in the past. Allergies Allergy/AdvReac Type Severity Reaction Status Date / Time codeine Allergy Unknown PER PT, Verified 10/31/23 13:40 HAS TOLERATED PERCOCET morphine Allergy Unknown Unknown Verified 10/31/23 13:40 Home Medications Medication Instructions Recorded Confirmed Type omega-3 fatty acids-vitamin E 1 cap PO BID ##0 07/13/09 10/31/23 History 1,000 mg capsule [id number]-[id number] 300 mcg-K 60 1 tab PO DAILY ##0 04/22/15 10/31/23 History mcg-lycop 600 mcg-lutein 300 mcg tablet (Centrum Silver Ultra Men's) atorvastatin 80 mg tablet 80 mg PO DAILY 10/31/23 10/31/23 History fenofibrate micronized 134 mg 134 mg PO QAM 10/31/23 10/31/23 History capsule ibuprofen 800 mg tablet 800 mg PO Q8H PRN Pain 10/31/23 10/31/23 History insulin aspart U-100 100 unit/mL See Rx Instructions .Route .COMPLEX 10/31/23 10/31/23 History (3 mL) subcutaneous pen (Novolog FlexPen U-100 Insulin aspart) insulin detemir U-100 100 unit/mL 65 unit subcut DAILY 10/31/23 10/31/23 History (3 mL) subcutaneous pen (Levemir FlexPen) lisinopril 30 mg tablet 30 mg PO QAM 10/31/23 10/31/23 History meclizine 25 mg tablet 25 mg PO TID PRN Vertigo 10/31/23 10/31/23 History metformin 1,000 mg tablet 1,000 mg PO BID 10/31/23 10/31/23 History semaglutide 2 mg/dose (8 mg/3 mL) 2 mg subcut WK 10/31/23 10/31/23 History subcutaneous pen injector (Ozempic) Patient History Medical History Dyslipidemia HTN (hypertension) DM (diabetes mellitus), type 2 Surgical History H/O hand surgery S/P hip replacement Family History Other Heart disease Liver disease Social History Smoking Status: Never smoker Hx Alcohol Use: Yes Alcohol Intake Frequency: 2-4 x/Month Hx Substance Use: No Feels Safe at Home: Yes Review of Systems Review of Systems: All systems reviewed & are unremarkable except as noted in HPI & below Physical Exam Constitutional: well developed and well nourished; no acute distress Respiratory: normal respiratory effort; no respiratory distress and no labored breathing Musculoskeletal: Head/Neck/Chest: normocephalic Skin: No visible rashes or lesions to exposed skin areas Neurologic: moves all extremities and awake Psychiatric: A+Ox3, euthymic affect Results & Data Vital Signs (Past 12 Hours) Vital Signs Temp Pulse Pulse Resp BP BP Pulse Ox 10/31/23 12:08 71 10/31/23 11:51 94 10/31/23 11:49 36.6 C 66 18 151/80 H 94 10/31/23 09:08 36.1 C L 76 16 185/95 H 96 O2 Del Method 10/31/23 12:08 10/31/23 11:51 Room Air 10/31/23 11:49 Room Air 10/31/23 09:08 PG Care Time/CCT Total # of Minutes Spent Total Time Spent with Patient: Total time spent is greater than 50% in coordination of care (as documented) at patient's floor/unit and/or counseling patient: Coding Level of Care Code 42267 INT INP/OBS CARE 2/55MIN Diagnoses Hydronephrosis with urinary obstruction due to ureteral calculus N13.2 Renal colic on right side N23
[2023-10-31] MEDS ORDERED: MIDAZOLAM HCL 1 MG/ML 2ML VIAL ONE (13:56)
[2023-10-31] MEDS ORDERED: LIDOCAINE 2% 2 ML VIAL/AMP(20MG/ML) INFIL ONE (13:56)
[2023-10-31] MEDS ORDERED: ceFAZolin 2,000 MG/15 ML IV PUSH IV ONE (13:56)
[2023-10-31] MEDS ORDERED: PROPOFOL IV EMULSION 10 MG/ML 20 ML VIAL IV ONE ×2 (13:56→14:41)
[2023-10-31] MEDS ORDERED: fentaNYL citrate PF 100 MCG/2 ML VIAL ONE (13:56)
[2023-10-31] MEDS ORDERED: ceFAZolin 2000MG 2,000 MG/15 ML SYR IV ONE (14:00)
--- OUTSIDE RECORDS SUMMARY | 2023-10-31 14:01 | External Medical Summary | Summary of Care ---
Author Name Unknown Organization [facility] Address [address] [place] [address] Phone [phone] Care Team Providers Care Cabinet Worker Name Role Phone Constance Waddell DO Primary Care Provider Reason for Visit * Reason Onset Date Comments Test Results 10/09/2023 Encounter Details Date Type Department Care Team (Late st Contact Info) Description 10/09/2023 Telephone Family Medicine [address] [phone] Constance Waddell [address] [address] Test Results Allergies Active Allergy Reactions Criticality Noted Date Comments Codeine Hives 06/20/2000 documented as of this encounter (statuses as of 10/14/2023) Medications Medication Sig Dispensed Refills Start Date End Date Status FISH OIL 1000 MG PO CAPSIndications:Mix ed dyslipidemia 2 pills each day 120 Cap 5 01/28/2014 Active Additional Information Patient taking differently: 1,000 mgOral, Reported on 04/01/2023 Blood Glucose Monitoring Suppl (ONETOUCH ULTRA 2) w/Device KIT Test blood sugar twice daily 1 Kit 0 06/19/2020 Active Glucose Blood (ONETOUCH ULTRA BLUE) STRPIndications:DM type 2, not at goal (HCC) Test 2 to 3 times a day dx-E11.9 100 Strip 5 06/28/2020 Active Meclizine HCl 25 MG Oral Tablet (Antivert) Take 1 Tab by mouth 3 times a day as needed for Dizziness. 30 Tab 1 01/01/2021 Active Centrum Silver 50+Men Oral Tablet Take by mouth . 0 A ctive SUMAtriptan Succinate 100 MG Oral TabletIndications:M igraine without aura and without status migrainosus, not intractable TAKE 1 TABLET NEEDED FOR HEADACHE, MAY REPEAT IN 2 HOURS IF NEEDED. MAX 2 TABS IN 24 HOURS 16 Tablet 1 10/28/2022 Active Atorvastatin Calcium 80 MG Oral Tablet (Lipitor)Indication s:Dyslipidemia, goal LDL below 100 Take 1 Tablet (80 mg) by mouth in the morning. 90 Tablet 3 10/29/2022 Active Ozempic (1 MG/DOSE) 2 MG/1.5ML Subcutaneous Solution Pen-injector (Semaglutide (1 MG/DOSE)) Inject 1 mg under the skin once a week. 9 mL 3 12/20/2022 Active BD Pen Needle Short U/F 31G X 8 MM (Insulin Pen Needle)Indications: Type 2 diabetes mellitus with hemoglobin A1c goal of less than 7.0% (HCC) USE DIRECTED 3 TIMES DAILY WITH FLEXPEN INSULIN Dx: E11.9 300 Each 5 02/05/2023 Active Levemir FlexTouch 100 UNIT/ML Subcutaneous Solution Pen-injector (Insulin Detemir)Indications :Type 2 diabetes mellitus with hemoglobin A1c goal of less than 7.0% (HCC) Inject 65 Units under the skin daily 30 mL 5 02/14/2023 Active Additional Information Patient taking differently: 60 Units, Inject 60 Units under the skin daily, Reported on 04/01/2023 Ventolin HFA 108 (90 Base) MCG/ACT Inhalation Aerosol SolutionIndications :Pneumonia of right lower lobe due to infectious organism Inhale 2 Puffs by mouth every 4 hours as needed for Cough, Shortness of Breath or Wheezing. 18 g 0 02/13/2023 Active NovoLOG FlexPen 100 UNIT/ML Subcutaneous Solution Pen-injector (insulin aspart)Indications: Type 2 diabetes mellitus with hemoglobin A1c goal of less than 7.0% (HCC) inject 24 units under the skin with breakfast and 20 units with lunch and 30 units with supper. 27 mL 5 04/03/2023 Active Fenofibrate Micronized 134 MG Oral Capsule TAKE ONE (1) CAPSULE by mouth DAILY BEFORE BREAKFAST Strength: 134 mg 90 Capsule 2 04/03/2023 Active BD Pen Needle Short U/F 31G X 8 MM 0 02/12/2023 Active Desoximetasone 0.05 % External Cream APPLY SPARINGLY TO AFFECTED AREA TWICE A DAY 0 03/08/2023 Active Mupirocin 2 % External Ointment (Bactroban)Indicati ons:Skin irritation APPLY TO AFFECTED AREA(S) THREE TIMES DAILY DIRECTED 22 g 1 05/20/2023 Active metFORMIN HCl 1000 MG Oral Tablet (Glucophage)Indicat ions:Type 2 diabetes mellitus with target hemoglobin A1c of less than 7.5 percent (HCC) Take 1 Tablet by mouth 2 times a day with morning and evening meals. 180 Tablet 3 09/29/2023 Active Lisinopril 20 MG Oral Tablet (Prinivil) Take 1 Tablet by mouth in the morning. 90 Tablet 3 09/29/2023 Active Ibuprofen 800 MG Oral Tablet (Motrin)Indications :Pain in unspecified limb TAKE ONE TABLET BY MOUTH EVERY 8 HOURS NEEDED FOR PAIN 90 Tablet 1 10/06/2023 Active Lisinopril 30 MG Oral Tablet Take 1 Tablet by mouth in the morning. 90 Tablet 3 10/13/2023 Active Ozempic (2 MG/DOSE) 8 MG/3ML Subcutaneous Solution Pen-injector (Semaglutide (2 MG/DOSE)) Inject 2 mg under the skin once a week. 9 mL 1 10/13/2023 Active documented as of this encounter (statuses as of 10/14/2023) Active Problems Problem Noted Date Diagnosed Date Primary osteoarthritis of right hip 10/03/2023 Primary osteoarthritis of right knee 10/03/2023 Controlled type 2 diabetes m ellitus with diabetic neuropathy, with long-term current use of insulin 02/13/2023 Primary open-angle glaucoma, bilateral, moderate stage 09/30/2022 Neuropathy of both feet 05/29/2020 Type 2 diabetes mellitus wit h microalbuminuria, with long-term current use of insulin 02/23/2019 Chronic pain of both shoulders 08/25/2018 Status post left hip replacement 08/25/2018 Fatty liver 01/16/2017 Essential hypertension with goal blood pressure less than 140/90 09/02/2016 Hammer toe, acquired 01/28/2014 Type 2 diabetes mellitus wit h target hemoglobin A1c of less than 7.5 percent 12/27/2011 Overview: ICD-10 update of inactive term Hyperlipidemia with target LDL less than 70 07/2009 Overview: Per Lipid Taxonomy. 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 03/29/2022 10/03/2023 Mild nonproliferative diabet ic retinopathy without macular edema associated with type 2 diabetes mellitus 03/14/2022 09/16/2022 Diabetes mellitus type II, controlled 09/27/2021 09/27/2021 Trigger ring finger of left hand 08/29/2020 02/28/2021 Type 2 diabetes mellitus wit h diabetic neuropathy, unspecified 08/22/2020 02/28/2021 Other proteinuria 02/23/2019 02/23/2019 Chronic left shoulder pain 08/25/2018 0 08/25/2018 Hip pain, right 08/25/2018 04/28/2020 Overview: acute Glaucoma 08/25/2018 09/16/2022 DM type 2 causing eye disease 02/06/2016 08/25/2018 Overview: nonproliferative retinopathy left eye Nonproliferative diabetic retinopathy 02/06/2016 05/29/2020 Overview: Left eye Type 2 diabetes mellitus wit h diabetic chronic kidney disease 12/04/2015 09/22/2017 HTN, goal below 140/90 05/31/201509/02 Osteoarthritis, shoulder 12/15/201412/2016 Bursitis/tendonitis, shoulder 12/15/2014 05/31/2015 Osteoarthritis of thumb 10/29/201308/02 Cervical spinal stenosis 02/09/2013 HTN, goal below 140/80 07/20/201205/31 Overview: Per HTN Protocol #27. DM type 2 causing eye disease 05/05/2012 10/29/2013 Kidney disease, chronic, sta ge II (GFR 60-89 ml/min) 02/05/2011 09/22/2017 Obesity, Class I, BMI 30.0-3 4.9 (see actual BMI) 02/22/2010 02/28/2021 Overview: Per Obesity Taxonomy HTN, goal below 130/80 11/08/200907/23 HTN, goal below 140/90 10/06/200911/08 Overview: Modified per HTN Taxonomy. Type 2 diabetes mellitus wit h hemoglobin A1c goal of less than 7.0% 09/14/2009 12/04/2011 Overview: Modified per Diabetes protocol #14. ICD-10 update of inactive term Closed fracture of multiple ribs 07/17/2009 05/22/2010 Electrolyte and fluid disorder 07/17/2009 05/22/2010 Anemia 07/17/2009 10/29/2013 Obesity, BMI not known 11/11/200802/22 Overview: Per Obesity Taxonomy Spasm of muscle 07/31/2007 03/01/2008 LOC PRIM [id number] 04/23/200603/31 ADVANCE DIRECTIVE INFORMATION 12/18/2005 08/25/2018 Overview: No, Advance Directive brochure given to patient at prior appointment. Other specified glaucoma 09/11/2005 OPEN WOUND OF FINGER 02/07/2005 008 Bunion 05/10/2004 03/01/2008 NEURALGIA-NEURITIS NOS 03/04/200303/01 Dermatitis 03/04/2003 03/01/2008 DM type 2, not at goal 12/28/200209/14 Overview: Modified per Diabetes protocol #14. Mixed dyslipidemia 12/28/2002 9 Overview: Per Lipid Taxonomy. Calculus of ureter 12/28/2002 8 DIAB RENAL MANIF ADULT 12/28/200212/04 BENIGN HYPERTENSION 10/06/20 09 Overview: Modified per HTN Taxonomy. Ganglion 03/01/2008 UNILAT INGUINAL HERNIA 04/12 LOSS OF TEETH, ACQUIRED 12/2007 Ganglion 03/01/2008 Internal hemorrhoids 008 Diverticulosis of colon 12/2007 Rotator cuff syndrome 2017 Calcium deposit tendon 08/25 Overview: right shoulder. Degeneration of cervical intervertebral disc 08/25/2018 Displacement of cervical int ervertebral disc without myelopathy 05/10/2009 Overview: C5-6 Mild nonproliferative diabet ic retinopathy(362.04) 10/29/2013 documented as of this encounter (statuses as of 10/14/2023) Immunizations Name Administration Dates Next Due COVID-19 mRNA, LNP-s, No Pre serve, 2-Dose Series (Moderna) 02/06/2021,01/09/2021 COVID-19, mRNA, LNP-s, PF, B ooster, 100mcg/0.5mg (Moderna) 11/06/2021 Pneumococcal Conjugate Vacc, 13 Valent (Prevnar) 02/23/2019 Pneumococcal Conjugate Vaccine, 20-valent (Prevn ar20) 04/01/2023 Season Influenza, Quad, PF, Adjuvanted, 65+ Yrs, IM (FLUAD) 08/29/2020 TDAP (age 10 and older)(Boostrix) 03/29/2022 documented as of this encounter Social History Tobacco Use Types Packs/Day Years Used Date Smoking Tobacco: Never Smokeless Tobacco: Never Alcohol Use Standard Drinks/Week Comments No 0 (1 standard drink = 0.6 oz pur e alcohol) 1-2 drinks per month PHQ-2 Answer Date Recorded PHQ-2 Score 0 05/29/2020 Hunger Vital Sign Answer Date Recorded Worried About Running Out of Food in the Last Ye ar Never true 05/29/2020 Ran Out of Food in the Last Year Never true 05/29/2020 Sex and Gender Information Value Date Recorded Sex Assigned at Not on file Gender Identity Not on file Sexual Orientation Not on file Job Start Date Occupation Industry Not on file Not on file Not on file documented as of this encounter Miscellaneous Notes * Telephone Encounter - Carol Cabezas LPN - 10/14/2023 11:32 AM EST Pt aware via Identified VM box * Telephone Encounter - Constance Waddell DO - 10/13/2023 10:36 PM EST Continue the same doses of insulin for now, but he should notify me if he starts having lows (symptomatic, or blood sugars of less than 100 even if they are without symptoms). * Telephone Encounter - Marilyn Arteaga LPN - 10/09/2023 3:32 PM EST Patient returned call. Informed of message. Verbalized understanding. He inquires if he increases this ozempic, What should his novolog dose be? He is currently taking novolog 24units @breakfast, 20 units@ lunch and 30 units @ supper. He is also taking levemir 60 units at HS. Please advise on doses of novolog and levemir. * Telephone Encounter - Indira Underwood LPN - 10/09/2023 11:20 AM EST Left message for pt to return my call. MyG sent. * Telephone Encounter - Constance Waddell DO - 10/09/2023 10:24 AM EST Please call patient: I sent him a letter with his test results but I would like to make 2 changes to his medicines: I want to increase his lisinopril to 30 mg I want to increase his Ozempic to 2 mg. Please notify pt and confirm pharmacy and I will send the scripts. documented in this encounter Plan of Treatment Upcoming Encounters Date Type Department Care Team (Late st Contact Info) Description 10/29/2023 10:40 AM EST Office Visit Otolaryngology [facility] [address] [place] [address] Isabelle Combs PA-C [address] [place] [address] 11/06/2023 2:30 PM EST Appointment Radiology, [place] [address] [place] [phone] 11/06/2023 3:00 PM EST Office Visit Urology, [place] [address] [place] [address] Alba Chan MD [address] [place] [address] 05/07/2024 8:50 AM EDT Office Visit Family Medicine [address] [phone] Constance Waddell DO [address] [place] [address] [place] [address] Health Maintenance Due Date Last Done Comments Sigmoidoscopy 1998 Zoster Vaccines (1 of 2) 2003 Hepatitis B (1 of 3 - Risk 3-dose series) 2013 Colonoscopy 12/24/2015 12/24/2005 Depression Screening 05/29/2021 05/29/2020 Cologuard 09/13/2021 09/13/2018, 09/07/2018 Colorectal Cancer Screening 07/29/2023 Fecal Occult Blood Test 07/29/2023 07/29/2022 COVID-19 Vaccine ( season) 2023 11/06/2021, 02/06/2021, 01/09/2021 Influenza Vaccine (FLU shot) (#1) 2023 08/29/2020 B-12 04/01/2024 04/01/2023, 03/02, 02/28/2021, Additional history exists Diabetic Foot Exam 04/01/2024 04/01/2023, 1 , 08/29/2020, Additional history exists HbA1c 04/02/2024 10/03/2023, 05/0 01/2023, 09/30/2022, Additional history exists Diabetic Eye Exam 09/29/2024 09/29/2023, , 09/03/2019, Additional history exists Albumin/Creatinine Ratio 10/03/2024 023, 10/01/2022, 09/27/2021, Additional history exists GFR 10/03/2024 10/03/2023, 09/02, 03/29/2022, Additional history exists Lipid Panel 04/01/2028 04/01/2023, 03/02, 02/28/2021, Additional history exists DTaP,Tdap,and Td Vaccines (2 - Td or Tdap) 03/29/2032 03/29/2022, 06/25/2001 Pneumococcal Vaccine: 65+ Years Completed 04/01/2023, 02/23/2019, 10/21/2000 GARDASIL-HPV IMMUNIZATION SERIES Aged Out No longer eligible based on patient's age to complete this topic MENINGOCOCCAL (MENACTRA/MENVEO) Aged Out No longer eligible based on patient's age to complete this topic documented as of this encounter Medical Devices Not on filedocumented as of this encounter Care Teams Cabinet Worker Relationship Specialty Start Date End Date Constance Waddell DO [address] [place] [address] [place] [address] PCP - General Internal Medicine 08/25/18 documented as of this encounter
--- OUTSIDE RECORDS SUMMARY | 2023-10-31 14:01 | External Medical Summary | Summary of Care ---
Author Name Unknown Organization [facility] Address [address] [place] [address] Phone [phone] Care Team Providers Care Staff Counselor Name Role Phone Myesha Allan DO Primary Care Provider [phone] Reason for Visit * Reason Onset Date Comments Medication Refill 09/29/2023 Encounter Details Date Type Department Care Team (Late st Contact Info) Description 09/29/2023 Refill Family Medicine [address] [place] [phone] Myesha Allan [address] [place] [address] Type 2 diabetes mellitus with target hemoglobin A1c of less than 7.5 percent (HCC); Pain in unspecified limb Allergies Active Allergy Reactions Criticality Noted Date Comments Codeine Hives 06/20/2000 documented as of this encounter (statuses as of 10/06/2023) Medications Medication Sig Dispensed Refills Start Date End Date Status FISH OIL 1000 MG PO CAPSIndications: Mixed dyslipidemia 2 pills each day 120 Cap 5 4 Active Additional Information Patient taking differently: 1,000 mgOral, Reported on 04/01/2023 Blood Glucose Monitoring Suppl (InvariumUCH ULTRA 2) w/Device KIT Test blood sugar twice daily 1 Kit 0 0 Active Glucose Blood (ONETOUCH ULTRA BLUE) STRPIndications: DM type 2, not at goal (HCC) Test 2 to 3 times a day dx-E11.9 100 Strip 5 0 Active Meclizine HCl 25 MG Oral Tablet (Antivert) Take 1 Tab by mouth 3 times a day as needed for Dizziness. 30 Tab 1 1 Active Centrum Silver 50+Men Oral Tablet Take by mouth . 0 Active SUMAtriptan Succinate 100 MG Oral TabletIndication s:Migraine without aura and without status migrainosus, not intractable TAKE 1 TABLET NEEDED FOR HEADACHE, MAY REPEAT IN 2 HOURS IF NEEDED. MAX 2 TABS IN 24 HOURS 16 Tablet 1 2 Active Atorvastatin Calcium 80 MG Oral Tablet (Lipitor)Indicat ions:Dyslipidemi a, goal LDL below 100 Take 1 Tablet (80 mg) by mouth in the morning. 90 Tablet 3 2 Active Ozempic (1 MG/DOSE) 2 MG/1.5ML Subcutaneous Solution Pen-injector (Semaglutide (1 MG/DOSE)) Inject 1 mg under the skin once a week. 9 mL 3 3 Active BD Pen Needle Short U/F 31G X 8 MM (Insulin Pen Needle)Indicatio ns:Type 2 diabetes mellitus with hemoglobin A1c goal of less than 7.0% (HCC) USE DIRECTED 3 TIMES DAILY WITH FLEXPEN INSULIN Dx: E11.9 300 Each 5 3 Active Levemir FlexTouch 100 UNIT/ML Subcutaneous Solution Pen-injector (Insulin Detemir)Indicati ons:Type 2 diabetes mellitus with hemoglobin A1c goal of less than 7.0% (HCC) Inject 65 Units under the skin daily 30 mL 5 3 Active Additional Information Patient taking differently: 60 Units, Inject 60 Units under the skin daily, Reported on 04/01/2023 Ventolin HFA 108 (90 Base) MCG/ACT Inhalation Aerosol SolutionIndicati ons:Pneumonia of right lower lobe due to infectious organism Inhale 2 Puffs by mouth every 4 hours as needed for Cough, Shortness of Breath or Wheezing. 18 g 0 3 Active NovoLOG FlexPen 100 UNIT/ML Subcutaneous Solution Pen-injector (insulin aspart)Indicatio ns:Type 2 diabetes mellitus with hemoglobin A1c goal of less than 7.0% (HCC) inject 24 units under the skin with breakfast and 20 units with lunch and 30 units with supper. 27 mL 5 3 Active Fenofibrate Micronized 134 MG Oral Capsule TAKE ONE (1) CAPSULE by mouth DAILY BEFORE BREAKFAST Strength: 134 mg 90 Capsule 2 3 Active BD Pen Needle Short U/F 31G X 8 MM 0 3 Active Desoximetasone 0.05 % External Cream APPLY SPARINGLY TO AFFECTED AREA TWICE A DAY 0 3 Active Mupirocin 2 % External Ointment (Bactroban)Indic ations:Skin irritation APPLY TO AFFECTED AREA(S) THREE TIMES DAILY DIRECTED 22 g 1 3 Active metFORMIN HCl 1000 MG Oral Tablet (Glucophage)Bette cations:Type 2 diabetes mellitus with target hemoglobin A1c of less than 7.5 percent (HCC) Take 1 Tablet by mouth 2 times a day with morning and evening meals. 180 Tablet 3 3 Active Lisinopril 20 MG Oral Tablet (Prinivil) Take 1 Tablet by mouth in the morning. 90 Tablet 3 3 Active Ibuprofen 800 MG Oral Tablet (Motrin)Indicati ons:Pain in unspecified limb TAKE ONE TABLET BY MOUTH EVERY 8 HOURS NEEDED FOR PAIN 90 Tablet 1 3 Active Lisinopril 20 MG Oral Tablet (Prinivil) Take 1 Tablet (20 mg) by mouth in the morning. 90 Tablet 3 2 09/29/20 23 Discontinued(Ref ill) metFORMIN HCl 1000 MG Oral Tablet (Glucophage)Bette cations:Type 2 diabetes mellitus with target hemoglobin A1c of less than 7.5 percent (HCC) Take 1 Tablet (1,000 mg) by mouth 2 times a day with morning and evening meals. 180 Tablet 3 2 09/29/20 23 Discontinued(Ref ill) Meloxicam 15 MG Oral Tablet Take 1 Tablet by mouth in the morning. 30 Tablet 5 3 10/03/20 23 Discontinued Ibuprofen 800 MG Oral Tablet (Motrin)Indicati ons:Pain in unspecified limb TAKE ONE TABLET BY MOUTH EVERY 8 HOURS NEEDED FOR PAIN 90 Tablet 1 3 10/06/20 23 Discontinued(Ref ill) documented as of this encounter (statuses as of 10/06/2023) Active Problems Problem Noted Date Diagnosed Date [...] as of this encounter (statuses as of 10/06/2023) Resolved Problems Problem Noted Date Diagnosed Date [...] Spasm of muscle 07/31/2007 03/01/2008 LOC PRIM [id number] 04/23/200603/31 ADVANCE DIRECTIVE INFORMATION 12/18/2005 08/25/2018 Overview: [...] as of this encounter (statuses as of 10/06/2023) Immunizations Name Administration Dates Next Due COVID-19 mRNA, LNP-s, No Pre serve, 2-Dose Series (Moderna) 02/06/2021,01/09/2021 COVID-19, mRNA, LNP-s, PF, B ooster, 100mcg/0.5mg (Moderna) 11/06/2021 Pneumococcal Conjugate Vacc, 13 Valent (Prevnar) 02/23/2019 Pneumococcal Conjugate Vaccine, 20-valent (Prevn ar20) 04/01/2023 Pneumococcal Polysaccharide PPV23 (Pneumovax) Season Influenza, Quad, PF, Adjuvanted, 65+ Yrs, IM (FLUAD) 08/29/2020 TD - Tetanus/Diptheria (ADULT) 06/25/2001 TDAP (age 10 and older)(Boostrix) 03/29/2022 documented [...] as of this encounter Miscellaneous Notes * Addendum Note - Myesha Allan DO - 10/06/2023 12:05 PM ESTAddended by: MYESHA ALLAN on: 10/06/2023 12:05 PM Modules accepted: Orders * Telephone Encounter - Myesha Allan DO - 09/29/2023 7:56 PM EDTSigned Prescriptions: Disp Refills metFORMIN HCl 1000 MG Oral Tablet (Glucoph*180 Ta*3 Sig: Take 1 Tablet by mouth 2 times a day with morning and evening meals.Authorizing Provider: MYESHA ALLAN MAELisinopril 20 MG Oral Tablet (Prinivil) 90 Tab*3 Sig: Take 1 Tablet by mouth in the morning.Authorizing Provider: MYESHA ALLAN * Telephone Encounter - Sheryl Herring RN - 09/29/2023 1:50 PM EDTPending Prescriptions: Disp Refills metFORMIN HCl 1000 MG Oral Tablet (Glucoph*180 Ta*3 Sig: Take 1 Tablet by mouth 2 times a day with morning and evening meals. Lisinopril 20 MG Oral Tablet (Prinivil) 90 Tab*3 Sig: Take 1 Tablet by mouth in the morning. Ibuprofen 800 MG Oral Tablet (Motrin) 90 Tab*1 Sig: TAKE ONE TABLET BY MOUTH EVERY 8 HOURS NEEDE D FOR PAIN * Telephone Encounter - Estrellita Ellison - 09/29/2023 12:03 PM EDT Did you pend patient's preferred pharmacy and medication before forwarding?yes Pharmacy: [facility], [address] [place] Pending Prescriptions: Disp Refills metFORMIN HCl 1000 MG Oral Tablet (Glucop*180 Ta*3 Sig: Take 1 Tablet by mouth 2 times a day with morning and evening meals. Lisinopril 20 MG Oral Tablet (Prinivil) 90 Tab*3 Sig: Take 1 Tablet by mouth in the morning. Ibuprofen 800 MG Oral Tablet (Motrin) 90 Tab*1 Sig: TAKE ONE TABLET BY MOUTH EVERY 8 HOURS NEEDED FOR PAIN Last Visit: 04/01/2023 (in office), Visit date not found (telemedicine) Next Visit: 10/03/2023 If no future appointments scheduled, and last appointment is greater than a year ago, please schedule patient for a follow-up appointment Last date the medication was ordered: 10/29/2022, 10/08/2022 & 06/17/2023 Is this request for a controlled substance?No Urine Drug Screen:No results found. However, due to the size of the patient record, not all encounters were searched. Please check Results Review for a complete set of results. Patient Phone Numbers Labs: Lab Results Component Value Date/Time CREAT 1.0 09/30/2022 09:56 AM CREAT 1.0 05/29/2020 03:25 PM POTASSIUM 4.8 09/30/2022 09:56 AM POTASSIUM 4.4 05/29/2020 03:25 PM TSH 0.97 07/06/2015 08:18 AM LDLCALC 70 04/01/2023 09:47 AM LDLCALC UNINTERPRETABLE RESULT 02/23/2019 10:02 AM LDLDIRECT 77 05/29/2020 03:25 PM LDLDIRECT 99 09/30/2009 07:50 AM ALT 55 (H) 09/30/2022 09:56 AM ALT 69 (H) 05/29/2020 03:25 PM HGBA1C 7.8 (H) 04/01/2023 09:47 AM HGBA1C 8.1 (H) 08/29/2020 08:36 AM HGBA1C 7.0 (H) 10/26/1996 10:25 AM documented in this encounter Plan of Treatment Upcoming Encounters Date Type Department Care Team (Late st Contact Info) Description 10/13/2023 11:00 AM EST Office Visit Orthopaedics, [address] [phone] Samuel Cancino MD [address] [place] [address] 10/29/2023 10:40 AM EST Office Visit Otolaryngology [facility] [address] [place] [address] Isabelle Combs PA-C [address] [place] [address] 11/06/2023 2:30 PM EST Appointment Radiology, [place] [address] [place] [address] 11/06/2023 3:00 PM EST Office Visit Urology, [place] [address] [place] [address] Alba Chan MD [address] [place] [address] 05/07/2024 8:50 AM EDT Office Visit Family Medicine [address] [place] [phone] Myesha Allan[address] [place] [address] Health Maintenance Due Date Last Done Comments [...] 08/29/2020, Additional history exists HbA1c 04/02/2024 10/03/2023, 0501/2023, 09/30/2022, Additional history exists Diabetic Eye Exam [...] Not on filedocumented as of this encounter Visit Diagnoses Diagnosis Type 2 diabetes mellitus with target hemoglobin A1c of less than 7.5 percent (HCC) Type II or unspecified type diabetes mellitus without mention of complication, not stated as uncontrolled Pain in unspecified limb documented in this encounter Care Teams Staff Counselor Relationship Specialty Start Date End Date Myesha Allan DO [address] [place] [address] [place] [phone] PCP - General Internal Medicine 08/25/18 documented as of this encounter
--- OUTSIDE RECORDS SUMMARY | 2023-10-31 14:01 | External Medical Summary | Summary of Care ---
Author Name Unknown Organization [facility] Address [address] [place] [address] Phone [phone] Care Team Providers Care Batter Depositor Name Role Phone Constance Waddell Primary Care Provider Reason for Visit * Reason Comments Cerumen Impaction Encounter Details Date Type Department Care Team (Late st Contact Info) Description 10/29/2023 10:40 AM EST Office Visit Otolaryngology [facility] [address] [place] [address] Isabelle Combs PA-C [address] [place] [phone] Impacted cerumen of right ear*; Nasal dryness; Nasal drainage Allergies Active Allergy Reactions Criticality Noted Date Comments Codeine Hives 06/20/2000 documented as of this encounter (statuses as of 10/29/2023) Medications Medication Sig Dispensed Refills Start Date End Date Status FISH OIL 1000 MG PO CAPSIndications:Mix ed dyslipidemia 2 pills each day 120 Cap 5 01/28/2014 Active Additional Information Patient taking differently: 1,000 mgOral, Reported on 04/01/2023 Blood Glucose Monitoring Suppl (JP3 MeasurementTOUCH ULTRA 2) w/Device KIT Test blood sugar [...] 24 HOURS 16 Tablet 1 10/28/2022 Active Ozempic (1 MG/DOSE) 2 MG/1.5ML Subcutaneous [...] a week. 9 mL 1 10/13/2023 Active Atorvastatin Calcium 80 MG Oral Tablet (Lipitor)Indication s:Dyslipidemia, goal LDL below 100 Take 1 Tablet by mouth in the morning. 90 Tablet 3 10/28/2023 Active documented as of this encounter (statuses as of 10/29/2023) Active Problems Problem Noted Date Diagnosed Date [...] as of this encounter (statuses as of 10/29/2023) Resolved Problems Problem Noted Date Diagnosed Date [...] Spasm of muscle 07/31/2007 03/01/2008 LOC PRIM [id number] 04/23/200603/31 ADVANCE DIRECTIVE INFORMATION 12/18/2005 08/25/2018 Overview: [...] as of this encounter (statuses as of 10/29/2023) Immunizations Name Administration Dates Next Due COVID-19 [...] on file documented as of this encounter Last Filed Vital Signs Vital Sign Reading Time Taken Comments Blood Pressure - - Pulse - - Temperature 36.7 C (98.1 F) 10/29/2023 1 0:36 AM EST Respiratory Rate - - Oxygen Saturation - - Inhaled Oxygen Concentration - - Weight 105.4 kg (232 lb 6.4 oz) 023 10:36 AM EST Height 180.3 cm (5' 10.98") 10/29/2023 10:36 AM EST Body Mass Index 32.43 10/29/2023 10:36 AM EST documented in this encounter Progress Notes * Isabelle Combs PA-C - 10/29/2023 10:33 AM EST SUBJECTIVE: Levy Ellis is a 68 year old male. Chief Complaint Patient presents with Cerumen Impaction Nursing Notes: Kaykay Ortez LPN 10/29/23 1044 Addendum Pt presents today for cerumen removal. Pt states he also has concerns with his left sinus, every day he is getting hard mucous in his throat that has to be removed. HPI: Patient presents for return appointment for cerumen removal. He also reports crusting from theleft nostril almost daily will either dilodge posteriorly or when he blows his nose. He has not tried saline irrigation. Seprately, he does feel dryness of his left caudal septum which will intermitte ntly mildly bleed. Patient Active Problem List Diagnosis Code Migraine without aura and without status migrainosus, not intractable G43.009 Hyperlipidemia with target LDL less than 70 E78.5 Type 2 diabetes mellitus with target hemoglobin A1c of less than 7.5 percent (HCC) E11.9 Hammer toe, acquired M20.40 Essential hypertension with goal blood pressure less than 140/90 I10 Fatty liver K76.0 Chronic pain of both shoulders M25.511, G89.29, M25.512 Status post left hip replacement Z96.642 Type 2 diabetes mellitus with microalbuminuria, with long-term current use of insulin ([facility]) E11.29,R80.9, Z79.4 Neuropathy of both feet G57.93 Primary open-angle glaucoma, bilateral, moderate stage H40.1132 Controlled type 2 diabetes mellitus with diabetic neuropathy, with long-term current use of insulin([facility]) E11.40, Z79.4 Primary osteoarthritis of right hip M16.11 Primary osteoarthritis of right knee M17.11 Current Outpatient Medications Medication Sig Dispense Refill FISH OIL 1000 MG PO CAPS 2 pills each day (Patient taking differently: Take 1 Capsule by mouth.) 120 Cap 5 Blood Glucose Monitoring Suppl ([employer] ULTRA 2) w/Device KIT Test blood sugar twice daily 1 Kit 0 Glucose Blood (PlayroomUCH ULTRA BLUE) STRP Test 2 to 3 times a day dx-E11.9 100 Strip 5 Meclizine HCl 25 MG Oral Tablet (Antivert) Take 1 Tab by mouth 3 times a day as needed for Dizziness. 30 Tab 1 Centrum Silver 50+Men Oral Tablet Take by mouth . SUMAtriptan Succinate 100 MG Oral Tablet TAKE 1 TABLET NEEDED FOR HEADACHE, MAY REPEAT IN 2 HOURS IF NEEDED. MAX 2 TABS IN 24 HOURS 16 Tablet 1 Ozempic (1 MG/DOSE) 2 MG/1.5ML Subcutaneous Solution Pen-injector (Semaglutide (1 MG/DOSE)) Inject 1 mg under the skin once a week. 9 mL 3 BD Pen Needle Short U/F 31G X 8 MM (Insulin Pen Needle) USE DIRECTED 3 TIMES DAILY WITH FLEXPEN INSULIN Dx: E11.9 300 Each 5 Levemir FlexTouch 100 UNIT/ML Subcutaneous Solution Pen-injector (Insulin Detemir) Inject 65 Units under the skin daily (Patient taking differently: 60 Units. Inject 60 Units under the skin daily) 30mL 5 Ventolin HFA 108 (90 Base) MCG/ACT Inhalation Aerosol Solution Inhale 2 Puffs by mouth every 4 hours as needed for Cough, Shortness of Breath or Wheezing. 18 g 0 NovoLOG FlexPen 100 UNIT/ML Subcutaneous Solution Pen-injector (insulin aspart) inject 24 units under the skin with breakfast and 20 units with lunch and 30 units with supper. 27 mL 5 Fenofibrate Micronized 134 MG Oral Capsule TAKE ONE (1) CAPSULE by mouth DAILY BEFORE BREAKFAST Strength: 134 mg 90 Capsule 2 BD Pen Needle Short U/F 31G X 8 MM Desoximetasone 0.05 % External Cream APPLY SPARINGLY TO AFFECTED AREA TWICE A DAY Mupirocin 2 % External Ointment (Bactroban) APPLY TO AFFECTED AREA(S) THREE TIMES DAILY [id number] g 1 metFORMIN HCl 1000 MG Oral Tablet (Glucophage) Take 1 Tablet by mouth 2 times a day with morning and evening meals. 180 Tablet 3 Lisinopril 20 MG Oral Tablet (Prinivil) Take 1 Tablet by mouth in the morning. 90 Tablet 3 Ibuprofen 800 MG Oral Tablet (Motrin) TAKE ONE TABLET BY MOUTH EVERY 8 HOURS NEEDED FOR PAIN 90 Tablet 1 Lisinopril 30 MG Oral Tablet Take 1 Tablet by mouth in the morning. 90 Tablet 3 Ozempic (2 MG/DOSE) 8 MG/3ML Subcutaneous Solution Pen-injector (Semaglutide (2 MG/DOSE)) Inject 2 mg under the skin once a week. 9 mL 1 Atorvastatin Calcium 80 MG Oral Tablet (Lipitor) Take 1 Tablet by mouth in the morning. 90 Tablet 3 No current facility-administered medications for this visit. Review of patient's allergies indicates: Allergen Reactions Codeine Hives REVIEW OF SYSTEMS Negative for constitutional, heart, lung, liver, kidney, digestive, hematologic, neurologic, rheumatologic, or endocrine complaints except as per history of present illness and past medical history. OBJECTIVE: Temp 36.7 C (98.1 F) (Tympanic) | Ht 1.803 m (5' 10.98") | Wt 105.4 kg (232 lb 6.4 oz) | BMI 32.43 kg/m | BSA 2.3 m PHYSICAL EXAM: General: alert, healthy, and no distress Ears: Examination of the ears revealed that the auricles were normally formed with no lesions. The external auditory canals were cleaned of any obstructing cerumen. The tympanic membranes were intactand freely mobile to pneumatoscopy without perforation or significant retraction pockets. Nose: Septum nonobstructing, turbinates normal, no masses, polyps, or mucopus. Oral Cavity: Examination of the oral cavity revealed no mass lesions nor infection. The palate was noted to be intact without evidence of clefting. The tongue exhibited normal mobility. Mucosa was moist without lesion. The lips were free of lesion. Gums were free of inflammation. Dentition: Unremarkable. Oropharynx: The oral pharynx was free of mass lesion or mucosal abnormality. The palate was noted to be without lesions. The uvula was normal appearing. Tonsils unremarkable. Neck: Visualization and palpation of the neck revealed no mass lesions, no thyromegaly or thyroid masses. No skin lesions or inflammatory processes were detected. The cervical musculature was normal to palpation. Lymphatics (cervical): There were no palpable lymph nodes in the posterior triangle, submandibular triangle, jugulodigastric region, or central neck. In order to assess the paranasal sinuses, endoscopy of the nose and paranasal sinuses was performed. The nose was decongested with topical oxymetazoline 0.05% spray and then anesthetized with topicalLidocaine 4% spray. The scope was used to examine each side of the nose. There were no masses visualized. The nasal mucosa was without lesion. The middle meatus on each side was clear of mass, polyp,or mucopus. The septum was non-obstructing. The nasopharynx was without lesion. The patient tolerated the procedure well. In order to better examine the ears the patient was brought to the microscope room where her ears were examined under the operating microscope with the above physical findings. ASSESSMENT/PLAN: Encounter Diagnoses Name Primary? Impacted cerumen of right ear Yes Nasal dryness Nasal drainage Plan:Findings and problems reviewed with patient. Cerumen removed. Nasal endoscopy is unremarkable.He will be started saline irrigation at least once daily. Also recommend saline gel to both nostrils. He will return in 6 months for cerumen removal. Isabelle Combs PA-C 10/29/2023 10:33 AM documented in this encounter Nursing Notes * Kaykay Ortez LPN - 10/29/2023 10:35 AM EST Pt presents today for cerumen removal. Pt states he also has concerns with his left sinus, every day he is getting hard mucous in his throat that has to be removed. documented in this encounter Plan of Treatment Upcoming Encounters Date Type Department Care Team (Late st Contact Info) Description 11/06/2023 2:30 PM EST Appointment Radiology, [place] [address] [place] [address] 11/06/2023 3:00 PM EST Office Visit Urology, [place] [address] [place] [address] Alba Chan MD [address] [place] [address] 04/28/2024 10:20 AM EDT Office Visit Otolaryngology [facility] [address] [place] [address] Isabelle Combs PA-C [address] [place] [address] 05/07/2024 8:50 AM EDT Office Visit Family Medicine [address] [place] [phone] Constance Waddell[address] [place] [address] Health Maintenance Due Date Last Done Comments [...] shot) (#1) 2023 08/29/2020 B-12 04/01/2024 04/01/2023, 04/2 08/2022, 02/28/2021, Additional history exists Diabetic Foot Exam [...] as of this encounter Visit Diagnoses Diagnosis Impacted cerumen of right ear- Primary Impacted cerumen Nasal dryness Other diseases of nasal cavity and sinuses Nasal drainage Other diseases of nasal cavity and sinuses documented in this encounter Care Teams Batter Depositor Relationship Specialty Start Date End Date Constance Waddell DO [address] [place] [address] [place] [address] PCP - General Internal Medicine 08/25/18 documented as of this encounter
--- OUTSIDE RECORDS SUMMARY | 2023-10-31 14:01 | External Medical Summary | Summary of Care ---
Author Name Unknown Organization [facility] Address [address] [place] [address] Phone [phone] Care Team Providers Care Taping Supervisor Name Role Phone Constance Waddell DO Primary Care Provider Reason for Visit * Reason Onset Date Comments Medication Refill 10/28/2023 Encounter Details Date Type Department Care Team (Late st Contact Info) Description 10/28/2023 Refill Family Medicine [address] [place] [address] Constance Waddell [address] [place] [address] Dyslipidemia, goal LDL below 100 Allergies Active Allergy Reactions Criticality Noted Date Comments Codeine Hives 06/20/2000 documented as of this encounter (statuses as of 10/28/2023) Medications Medication Sig Dispensed Refills Start Date End Date Status FISH OIL 1000 MG PO CAPSIndications:Mi xed dyslipidemia 2 pills each day 120 Cap 5 01/28/2014 Active Additional Information Patient taking differently: 1,000 mgOral, Reported on 04/01/2023 Blood Glucose Monitoring Suppl (Within3UCH ULTRA 2) w/Device KIT Test blood sugar [...] A ctive SUMAtriptan Succinate 100 MG Oral TabletIndications: Migraine without aura and without status migrainosus, [...] U/F 31G X 8 MM (Insulin Pen Needle)Indications :Type 2 diabetes mellitus with hemoglobin A1c goal of less than 7.0% (HCC) USE DIRECTED 3 TIMES DAILY WITH FLEXPEN INSULIN Dx: E11.9 300 Each 5 02/05/2023 Active Levemir FlexTouch 100 UNIT/ML Subcutaneous Solution Pen-injector (Insulin Detemir)Indication s:Type 2 diabetes mellitus with hemoglobin A1c goal of less than 7.0% (HCC) Inject 65 Units under the skin daily 30 mL 5 02/14/2023 Active Additional Information Patient taking differently: 60 Units, Inject 60 Units under the skin daily, Reported on 04/01/2023 Ventolin HFA 108 (90 Base) MCG/ACT Inhalation Aerosol SolutionIndication s:Pneumonia of right lower lobe due to infectious organism Inhale 2 Puffs by mouth every 4 hours as needed for Cough, Shortness of Breath or Wheezing. 18 g 0 02/13/2023 Active NovoLOG FlexPen 100 UNIT/ML Subcutaneous Solution Pen-injector (insulin aspart)Indications :Type 2 diabetes mellitus with hemoglobin A1c [...] 03/08/2023 Active Mupirocin 2 % External Ointment (Bactroban)Indicat ions:Skin irritation APPLY TO AFFECTED AREA(S) THREE TIMES DAILY DIRECTED 22 g 1 05/20/2023 Active metFORMIN HCl 1000 MG Oral Tablet (Glucophage)Indica tions:Type 2 diabetes mellitus with target hemoglobin A1c of less than 7.5 percent (HCC) Take 1 Tablet by mouth 2 times a day with morning and evening meals. 180 Tablet 3 09/29/2023 Active Lisinopril 20 MG Oral Tablet (Prinivil) Take 1 Tablet by mouth in the morning. 90 Tablet 3 09/29/2023 Active Ibuprofen 800 MG Oral Tablet (Motrin)Indication s:Pain in unspecified limb TAKE ONE TABLET BY [...] Active Atorvastatin Calcium 80 MG Oral Tablet (Lipitor)Indicatio ns:Dyslipidemia, goal LDL below 100 Take 1 Tablet by mouth in the morning. 90 Tablet 3 10/28/2023 Active Atorvastatin Calcium 80 MG Oral Tablet (Lipitor)Indicatio ns:Dyslipidemia, goal LDL below 100 Take 1 Tablet (80 mg) by mouth in the morning. 90 Tablet 3 10/29/2022 3 Discontinue d(Refill) documented as of this encounter (statuses as of 10/28/2023) Active Problems Problem Noted Date Diagnosed Date Primary osteoarthritis of right hip 10/03/2023 Primary osteoarthritis of right knee 10/03/2023 Controlled type 2 diabetes m dhaval with diabetic neuropathy, with long-term current use [...] as of this encounter (statuses as of 10/28/2023) Resolved Problems Problem Noted Date Diagnosed Date [...] Spasm of muscle 07/31/2007 03/01/2008 LOC PRIM [id number] 04/23/200603/31 ADVANCE DIRECTIVE INFORMATION 12/18/2005 08/25/2018 Overview: [...] as of this encounter (statuses as of 10/28/2023) Immunizations Name Administration Dates Next Due COVID-19 [...] encounter Miscellaneous Notes * Telephone Encounter - Aron Valente MD - 10/28/2023 2:26 PM ESTSigned Prescriptions: Disp Refills Atorvastatin Calcium 80 MG Oral Tablet (Li*90 Tab*3 Sig: Take 1 Tablet by mouth in the morning. Authorizing Provider: ARON VALENTE * Telephone Encounter - Carol Cabezas LPN - 10/28/2023 11:41 AM ESTPending Prescriptions: Disp Refills Atorvastatin Calcium 80 MG Oral Tablet (Li*90 Tab*3 Sig: Take 1 Tablet by mouth in the morning. * Telephone Encounter - Carol Cabezas LPN - 10/28/2023 11:41 AM EST Pending Prescriptions: Disp Refills Atorvastatin Calcium 80 MG Oral Tablet (L*90 Tab*3 Sig: Take 1 Tablet by mouth in the morning. Last Visit: 10/03/2023 (in office), Visit date not found (telemedicine) Next Visit: 05/07/2024 Last date the medication was ordered: 10/29/2022 Patient Active Problem List Diagnosis Code Migraine [...] microalbuminuria, with long-term current use of insulin (HCC) E11.29,R80.9, Z79.4 Neuropathy of both feet G57.93 Primary open-angle glaucoma, bilateral, moderate stage H40.1132 Controlled type 2 diabetes mellitus with diabetic neuropathy, with long-term current use of insulin([facility]) E11.40, Z79.4 Primary osteoarthritis of right hip M16.11 Primary osteoarthritis of right knee M17.11 Labs: Lab Results Component Value Date/Time CREATININE - [facility] 1.1 10/03/2023 03:21 PM CREATININE - [facility] 1.0 05/29/2020 03:25 PM CREATININE, RANDOM URINE - [facility] 153 10/03/2023 03:21 PM CREATININE, RANDOM URINE - [facility] 159 08/30/2020 03:11 PM CREATININE-OUTSIDE LAB 0.9 04/16/2018 12:00 AM Lab Results Component Value Date/Time POTASSIUM - [facility] 4.0 10/03/2023 03:21 PM POTASSIUM - [facility] 4.4 05/29/2020 03:25 PM POTASSIUM-OUTSIDE LAB 3.8 04/16/2018 12:00 AM Lab Results Component Value Date/Time TSH - [facility] 0.97 07/06/2015 08:18 AM Lab Results Component Value Date/Time LDL CHOLESTEROL (CALCULATED) - [facility] 70 04/01/2023 09:47 AM LDL CHOLESTEROL (CALCULATED) - [facility] 76 03/29/2022 09:26 AM LDL CHOLESTEROL (CALCULATED) - [facility] UNINTERPRETABLE RESULT 02/23/2019 10:02 AM LDL CHOLESTEROL (CALCULATED) - [facility] 68 03/30/2018 10:02 AM LDL CHOLESTEROL (DIRECT MEASURE) - [facility] 77 05/29/2020 03:25 PM LDL CHOLESTEROL (DIRECT MEASURE) - [facility] 79 02/23/2019 10:02 AM LDL CHOLESTEROL (DIRECT MEASURE) - [facility] 99 09/30/2009 07:50 AM LDL CHOLESTEROL (DIRECT MEASURE) - [facility] 133 (H) 01/31/2009 08:01 AM Lab Results Component Value Date/Time ALT - [facility] 62 (H) 10/03/2023 03:21 PM ALT - [facility] 69 (H) 05/29/2020 03:25 PM Hemoglobin AIC Results: Lab Results Component Value Date/Time HEMOGLOBIN A1C 7.0 (H) 10/26/1996 10:25 AM HEMOGLOBIN A1C - [facility] 8.0 (H) 10/03/2023 03:21 PM HEMOGLOBIN A1C - [facility] 7.8 (H) 04/01/2023 09:47 AM HEMOGLOBIN A1C - [facility] 7.6 (H) 09/30/2022 09:56 AM HEMOGLOBIN A1C - [facility] 8.1 (H) 08/29/2020 08:36 AM HEMOGLOBIN A1C - [facility] 9.2 (H) 05/29/2020 03:25 PM HEMOGLOBIN A1C - [facility] 9.2 (H) 08/31/2019 09:46 AM * Telephone Encounter - Quin Solis OSA - 10/28/2023 9:07 AM EST Did you pend patient's preferred pharmacy and medication before forwarding?yes Pharmacy: [facility], [facility] [place] 90 day Pending Prescriptions: Disp Refills Atorvastatin Calcium 80 MG Oral Tablet (L*90 Tab*3 Sig: Take 1 Tablet by mouth in the morning. Last Visit: 10/03/2023 (in office), Visit date not found (telemedicine) Next Visit: 05/07/2024 If no future appointments scheduled, and last appointment is greater than a year ago, please schedule patient for a follow-up appointment Last date the medication was ordered: 10.29.22 Is this request for a controlled substance?No Urine Drug Screen:No results found. However, due to the size of the patient record, not all encounters were searched. Please check Results Review for a complete set of results. Patient Phone Numbers Labs: Lab Results Component Value Date/Time CREAT 1.1 10/03/2023 03:21 PM CREAT 1.0 05/29/2020 03:25 PM POTASSIUM 4.0 10/03/2023 03:21 PM POTASSIUM 4.4 05/29/2020 03:25 PM TSH 0.97 07/06/2015 08:18 AM LDLCALC 70 04/01/2023 09:47 AM LDLCALC UNINTERPRETABLE RESULT 02/23/2019 10:02 AM LDLDIRECT 77 05/29/2020 03:25 PM LDLDIRECT 99 09/30/2009 07:50 AM ALT 62 (H) 10/03/2023 03:21 PM ALT 69 (H) 05/29/2020 03:25 PM HGBA1C 8.0 (H) 10/03/2023 03:21 PM HGBA1C 8.1 (H) 08/29/2020 08:36 AM HGBA1C 7.0 (H) 10/26/1996 10:25 AM documented in this encounter Plan of Treatment Upcoming Encounters Date Type Department Care Team (Late st Contact Info) Description 10/29/2023 10:40 AM EST Office Visit Otolaryngology [facility] [address] [place] [address] Isabelle Combs PA-C [address] [address] 11/06/2023 2:30 PM EST Appointment Radiology, [place] [address] [place] [address] 11/06/2023 3:00 PM EST Office Visit Urology, [place] [address] [place] [id number] Alba Chan MD [address] [place] [address] 05/07/2024 8:50 AM EDT Office Visit Family Medicine [address] [place] [phone] [address] [place] [address] Health Maintenance Due Date Last Done Comments [...] as of this encounter Visit Diagnoses Diagnosis Dyslipidemia, goal LDL below 100 Other and unspecified hyperlipidemia documented in this encounter Care Teams Taping Supervisor Relationship Specialty Start Date End Date Constance Waddell DO [address] [place] [address] [place] [address] PCP - General Internal Medicine 08/25/18 documented as of this encounter
--- OUTSIDE RECORDS SUMMARY | 2023-10-31 14:01 | External Medical Summary | Summary of Care ---
Author Name Unknown Organization [facility] Address [address] [facility] [place] [address] Care Team Providers Care Frame Repairer Name Role Phone Constance Waddell Primary Care Provider Reason for Referral * Evaluate & Treat - Unlimited Visits (Within 30 days (routine)) - Pending Review Specialty Diagnoses / Procedures Referred By Clari warren Referred To Contact Physical Therapy / Physical Medicine And Rehab Diagnoses Primary osteoarthritis of right knee Samuel Cancino MD [address] [place] [address] Referral ID Status Reason Start Date Expiration Date Visits Requested Visits Authorized [id number] Pending Review Specialty Services Required 3 [phone] Question Answer Referral Priority Within 30 days (routine) Where should this appointment be scheduled? Internal Comments EVAL AND TREAT FOR PRE OP R TKA Reason for Visit * Reason Comments Follow Up R knee Encounter Details Date Type Department Care Team (Latest Contact Info) Description 10/13/2023 11:00 AM EST Office [address] [phone] Samuel Cancino MD [address] [place] [address] Primary osteoarthritis of right knee* Allergies Active Allergy Reactions Criticality Noted Date Comments Becki Rivera 06/20/2000 documented as of this encounter (statuses as of 10/13/2023) Medications Medication Sig Dispensed Refills Start Date End Date Status FISH OIL 1000 MG PO CAPSIndications:Mix ed dyslipidemia 2 pills each day 120 Cap 5 01/28/2014 Active Additional Information Patient taking differently: 1,000 mgOral, Reported on 04/01/2023 Blood Glucose Monitoring Suppl (Seamless[employer]s ULTRA 2) w/Device KIT Test blood sugar [...] FOR PAIN 90 Tablet 1 10/06/2023 Active documented as of this encounter (statuses as of 10/13/2023) Active Problems Problem Noted Date Diagnosed Date [...] as of this encounter (statuses as of 10/13/2023) Resolved Problems Problem Noted Date Diagnosed Date [...] Spasm of muscle 07/31/2007 03/01/2008 LOC PRIM [id number] 04/23/200603/31 ADVANCE DIRECTIVE INFORMATION 12/18/2005 08/25/2018 Overview: [...] as of this encounter (statuses as of 10/13/2023) Immunizations Name Administration Dates Next Due COVID-19 [...] Pressure - - Pulse - - Temperature - - Respiratory Rate - - Oxygen Saturation - - Inhaled Oxygen Concentration - - Weight 108 kg (238 lb) 10/13/2023 11:29 AM EST Height 180.3 cm (5' 10.98") 10/13/2023 11:29 AM EST Body Mass Index 33.21 10/13/2023 11:29 AM EST documented in this encounter Progress Notes * Samuel Cancino MD - 10/13/2023 11:52 AM EST Patient is here for recheck of right knee pain. His last injection on 05-19-23 gave him no relief. He has had no adverse reactions and no recent fall or injury. He takes Ibuprofen once in a while and it gives him relief. He started putting ice on his knee and he gets relief. His pain increases with going up and down steps, walking long distances, standing for a long period of time, and at night while he sleeps. Past medical history: Reviewed Medications: See list Allergies: See list Family history and social history is reviewed with the patient. Pertinent details per HPI Review of Systems: The patient denies chest pain and shortness of breath. Other system reviews are negative except as noted in the HPI PE: CONSTITUTIONAL: See chart H&P section for vitals. Healthy appearing with normal nutritional status. LUNGS: Breathing is nonlabored with no audible wheezes. Exam otherwise normal for planned procedure. CARDIOVASCULAR: Palpable pulses in all four extremities. Normal capillary refill in all four extremities. Exam otherwise normal for planned procedure. LYMPHATIC: No palpable lymphadenopathy. SKIN: Skin and subcutaneous tissues inspected and palpated in left upper extremity, right upper extremity, left lower extremity and right lower extremity with no abnormal findings. NEUROLOGICAL/PSYCHIATRIC: Oriented to person, place and time. No increased agitation noted. Insightand judgment was intact. Mood and affect was normal. M/S: No gross motor weakness to either upper or lower extremity except where indicated in musculoskeletal exam. DTRs are nonfocal. Sensation otherwise intact. ORTHOPEDIC: Right knee is tender to palpation at the medial joint line. There is some medial joint and patellofemoral crepitus. No lateral joint line symptoms. Negative Clive. Negative anterior andposterior drawer testing. No varus or valgus instability. No effusion or synovial thickening. ROM is 0-115 degrees. Impression: Severe right knee DJD Recommendations: We discussed treatment options including corticosteroid injections, Visco supplementation, anti-inflammatory medication use, bracing, therapy, and knee replacement surgery. This patient has disablingpain and limited function unresponsive to a thorough and nonoperative treatment program. The patient exhibits physical exam findings and radiographic evidence of end-stage degenerative joint disease.The patient is therefor a candidate for knee replacement surgery. The patient would like to proceedwith right knee replacement, having failed an appropriate course of conservative management as noted. I discussed the planned procedure with the patient. This discussion included the risks, benefits,and alternative treatment options. As with any surgical procedure, there are risks involved. These include, but are not limited to, , cardiopulmonary arrest, myocardial infarction, stroke or other neurologic deficits, unplanned transfer to the ICU, unplanned return to the operating room, acuterenal failure, deep venous thrombosis, pulmonary embolism, and early or late wound dehiscence or infection. Patients who are obese, have diabetes or rheumatoid arthritis, who have a history of blood clots, or who are on blood thinners are counseled that they have a higher risk of perioperative complications. Younger or more active patients are counseled that they may experience premature wear or loosening of the components which could require revision surgery sooner than expected. Where appropriate, a discussion of weight loss in relation to improved surgical outcomes and decreased complications was had. Obese patients are referred back to their PCP for a weight management program. The risks of infection, blood clots, nerve damage, possible anesthetic problems, and the possibility of a less than perfect surgical outcome as outlined above were discussed, along with any other pertinent issues. There is also postoperative risk of return to the emergency room or an unplanned readmission if any of the above factors develop. Also, even though we anticipate a good alf outcome with the procedure, no guarantees can be made regarding the expected lifetime of the components. The patient voiced their understanding and desire to proceed surgically. We will make appropriate arrangements. documented in this encounter Nursing Notes * Isabelle Chase TECH - 10/13/2023 12:09 PM EST SURGERY QUESTIONNAIRE COMPLETED AND BINDER GIVEN TO PATIENT * Isabelle Chase TECH - 10/13/2023 11:26 AM EST Pt is here for recheck of R knee pain. Last injection on 05-19-23 he got no relief from it, no adverse reaction and no recent fall or injury. He takes Ibuprofen once in a while and it gives him relief. He started putting ice on his knee and he gets relief. Going up and down steps, walking long distances, standing for a period of time and he has no pain at night while he sleeps. documented in this encounter Plan of Treatment Upcoming Encounters Date Type Department Care Team (Late st Contact Info) Description 10/29/2023 10:40 AM EST Office Visit Otolaryngology [facility] [address] [place] [address] [address] Isabelle Combs PA-C [address] [place] [address] 11/06/2023 2:30 PM EST Appointment Radiology, [address] [phone] 11/06/2023 3:00 PM EST Office Visit Urology, [address] [phone] Alba Chan MD [address] [place] [address] 05/07/2024 8:50 AM EDT Office Visit Family Medicine [address] [place] [address] [address] [place] [address] Scheduled Referrals Name Type Priority Associated Diagnoses Orde r Schedule PHYSICAL THERAPY REFERRAL OP Referral Within 30 days (routine) Primary osteoarthritis of right knee Ordered: 10/13/2023 Health Maintenance Due Date Last Done Comments [...] as of this encounter Visit Diagnoses Diagnosis Primary osteoarthritis of right knee- Primary Primary localized osteoarthrosis, lower leg documented in this encounter Care Teams Frame Repairer Relationship Specialty Start Date End Date Constance Waddell DO [address] [place] [address] [place] [address] PCP - General Internal Medicine 08/25/18 documented as of this encounter
--- OUTSIDE RECORDS SUMMARY | 2023-10-31 14:01 | External Medical Summary | Summary of Care ---
Author Name Unknown Organization [facility] Address [address] [place] [address] Phone [phone] Care Team Providers Care Ribber Name Role Phone Constance Waddell DO Primary Care Provider Reason for Visit * Reason Onset Date Comments Test Results 10/09/2023 Encounter Details Date Type Department Care Team (Late st Contact Info) Description 10/09/2023 Telephone Family Medicine [address] [phone] Constance [address]addell [address] [address] Test Results Allergies Active Allergy Reactions Criticality Noted Date Comments Codeine Hives 06/20/2000 documented as of this encounter (statuses as of 10/16/2023) Medications Medication Sig Dispensed Refills Start Date [...] as of this encounter (statuses as of 10/16/2023) Active Problems Problem Noted Date Diagnosed Date [...] as of this encounter (statuses as of 10/16/2023) Resolved Problems Problem Noted Date Diagnosed Date [...] Spasm of muscle 07/31/2007 03/01/2008 LOC PRIM [id number] 04/23/200603/31 ADVANCE DIRECTIVE INFORMATION 12/18/2005 08/25/2018 Overview: [...] as of this encounter (statuses as of 10/16/2023) Immunizations Name Administration Dates Next Due COVID-19 [...] 10/29/2023 10:40 AM EST Office Visit Otolaryngology [facility] [address] [place] [address] Isabelle Combs PA-C [address] [place] [address] 11/06/2023 2:30 PM EST Appointment Radiology, [place] [address] [place] [phone] 11/06/2023 3:00 PM EST Office Visit Urology, [place] [address] [place] [address] Alba Chan MD [address] [place] [address] 05/07/2024 8:50 AM EDT Office Visit Family Medicine [address] [phone] Constance Waddell DO [address] [place] [address] [address] [address] Health Maintenance Due Date Last Done Comments [...] filedocumented as of this encounter Care Teams Ribber Relationship Specialty Start Date End Date Constance Waddell DO [address] [place] [address] [place] [address] PCP - General Internal Medicine 08/25/18 documented as of this encounter
--- OUTSIDE RECORDS SUMMARY | 2023-10-31 14:01 | External Medical Summary | Summary of Care ---
Author Name Unknown Organization [facility] Address [address] [place] [address] Phone [phone] Care Team Providers Care Cotton Classer Aide Name Role Phone Constance Waddell DO Primary Care Provider Encounter Details Date Type Department Care Team (Late st Contact Info) Description 07/25/2023 Telephone Otolaryngology, [place] [address] [place] [address] Elian Merritt PA-C [address] [place] [address] Allergies Active Allergy Reactions Criticality Noted Date Comments Codeine Hives 06/20/2000 documented as of this encounter (statuses as of 10/24/2023) Medications Medication Sig Dispensed Refills Start Date [...] DAILY DIRECTED 22 g 1 05/20/2023 Active documented as of this encounter (statuses as of 10/24/2023) Active Problems Problem Noted Date Diagnosed Date [...] as of this encounter (statuses as of 10/24/2023) Resolved Problems Problem Noted Date Diagnosed Date [...] Spasm of muscle 07/31/2007 03/01/2008 LOC PRIM [id number] 04/23/200603/31 ADVANCE DIRECTIVE INFORMATION 12/18/2005 08/25/2018 Overview: [...] as of this encounter (statuses as of 10/24/2023) Immunizations Name Administration Dates Next Due COVID-19 [...] encounter Miscellaneous Notes * Telephone Encounter - Poonam Dee OSA - 07/25/2023 12:03 PM EDT Pt is incorrectly scheduled as a new pt in the [place] [facility] location. The pt is currently a pt of Isabelle Combs and should follow up care with her. The current scheduled appointment does need to be rescheduled as the provider will not be in the date and time that the pt is scheduled and the appointment will need to be rescheduled anyway. Please reach out to the clinic directly when the pt returns the call so that we can get him rescheduled Thank you Poonam L Luiz, JONNA documented in this encounter Plan of Treatment Upcoming Encounters Date Type Department Care Team (Late st Contact Info) Description 10/29/2023 10:40 AM EST Office Visit Otolaryngology [facility] [address] [place] [address] Isabelle Combs PA-C [address] [place] [address] 11/06/2023 2:30 PM EST Appointment Radiology, [place] [address] [place] [phone] 11/06/2023 3:00 PM EST Office Visit Urology, [place] [address] [place] [address] Alba Chan MD [facility] [place] [address] 05/07/2024 8:50 AM EDT Office Visit Family Medicine [address] [place] [phone] Constance Waddell[address] [place] [address] Health Maintenance Due Date Last Done Comments [...] filedocumented as of this encounter Care Teams Cotton Classer Aide Relationship Specialty Start Date End Date Constance Waddell DO [address] [place] [address] [place] [address] PCP - General Internal Medicine 08/25/18 documented as of this encounter
--- OUTSIDE RECORDS SUMMARY | 2023-10-31 14:01 | External Medical Summary | Summary of Care ---
Author Name Unknown Organization [facility] Address [address] [facility] [place] [address] Care Team Providers Care Trade Mark Attorney Name Role Phone Constance Waddell DO Primary Care Provider [phone] Reason for Visit * Reason Onset Date Comments Surgery 10/17/2023 Encounter Details Date Type Department Care Team (Late st Contact Info) Description 10/17/2023 Telephone Orthopaedics [facility] [address] [facility] [address] [facility] [address] [place] [phone] Michelle Linares, parking control officer Allergies Active Allergy Reactions Criticality Noted Date Comments Codealexandr Hivrodri 06/20/2000 documented as of this encounter (statuses as of 10/17/2023) Medications Medication Sig Dispensed Refills Start Date End Date Status FISH OIL 1000 MG PO CAPSIndications:Mix ed dyslipidemia 2 pills each day 120 Cap 5 01/28/2014 Active Additional Information Patient taking differently: 1,000 mgOral, Reported on 04/01/2023 Blood Glucose Monitoring Suppl (LeKioskTOUCH ULTRA 2) w/Device KIT Test blood sugar [...] as of this encounter (statuses as of 10/17/2023) Active Problems Problem Noted Date Diagnosed Date [...] Hyperlipidemia with target LDL less than 70 12/0 07/2009 Overview: Per Lipid Taxonomy. Migraine without aura and wi thout status migrainosus, not intractable 04/01/2007 documented as of this encounter (statuses as of 10/17/2023) Resolved Problems Problem Noted Date Diagnosed Date [...] Spasm of muscle 07/31/2007 03/01/2008 LOC PRIM [id number] 04/23/200603/31 ADVANCE DIRECTIVE INFORMATION 12/18/2005 08/25/2018 Overview: [...] as of this encounter (statuses as of 10/17/2023) Immunizations Name Administration Dates Next Due COVID-19 [...] encounter Miscellaneous Notes * Telephone Encounter - Michelle Linares RN - 10/17/2023 9:52 AM EST The patient called re: surgery and preop PT. We reviewed preop PT is one appointment, he prefers [facility] in [place] [facility]. We did review needing to attend a joint class and PAC, which he relays will not be an issue. We did discuss A1C level of 8.0. He is aware that I will need to discuss A1C and scheduling with surgeon but will call with a decision. Preop PT faxed to [phone]. documented in this encounter Plan of Treatment Upcoming Encounters Date Type Department Care Team (Late st Contact Info) Description 10/29/2023 10:40 AM EST Office Visit [facility] [place] [address] Isabelle Combs PA-C [address] [place] [address] 11/06/2023 2:30 PM EST Appointment Radiology, [place] [address] [place] [address] 11/06/2023 3:00 PM EST Office Visit Urology, [place] [address] [place] [address] Alba Chan MD [address] [place] [address] 05/07/2024 8:50 AM EDT Office Visit Family Medicine [address] [place] [phone] Constance W[address] [place] [address] Health Maintenance Due Date Last Done Comments [...] filedocumented as of this encounter Care Teams Trade Mark Attorney Relationship Specialty Start Date End Date Constance Waddell DO [address] [place] [address] [place] [address] PCP - General Internal Medicine 08/25/18 documented as of this encounter
--- OUTSIDE RECORDS SUMMARY | 2023-10-31 14:02 | External Medical Summary | Summary of Care ---
Author Name Unknown Organization [facility] Address [address] [place] [address] Phone [phone] Care Team Providers Care Inseam Leveler Name Role Phone Constance Waddell Primary Care Provider [phone] Reason for Visit * Reason Comments Follow Up Hearing loss in left ear Encounter Details Date Type Department Care Team Description 07/30/2023 Office Visit Otolaryngology [facility] [address] [place] [id number] Femi Covarrubias PA-C [address] [place] [id number] Asymmetrical sensorineural hearing loss*; Bilateral impacted cerumen Allergies Active Allergy Reactions Severity Noted Date Comments Codeine Hives 06/20/2000 documented as of this encounter (statuses as of 07/30/2023) Medications Medication Sig Dispensed Refills Start Date End Date Status FISH OIL 1000 MG PO CAPSIndications:Mix ed dyslipidemia 2 pills each day 120 Cap 5 01/28/2014 Active Additional Information Patient taking differently: 1,000 mgOral, Reported on 04/01/2023 Blood Glucose Monitoring Suppl (Helpful TechnologiesUCH ULTRA 2) w/Device KIT Test blood sugar [...] Take by mouth . 0 A ctive Lisinopril 20 MG Oral Tablet (Prinivil) Take 1 Tablet (20 mg) by mouth in the morning. 90 Tablet 3 10/08/2022 Active SUMAtriptan Succinate 100 MG Oral TabletIndications:M igraine [...] the morning. 90 Tablet 3 10/29/2022 Active metFORMIN HCl 1000 MG Oral Tablet (Glucophage)Indicat ions:Type 2 diabetes mellitus with target hemoglobin A1c of less than 7.5 percent (HCC) Take 1 Tablet (1,000 mg) by mouth 2 times a day with morning and evening meals. 180 Tablet 3 10/29/2022 Active Ozempic (1 MG/DOSE) [...] DAILY DIRECTED 22 g 1 05/20/2023 Active Meloxicam 15 MG Oral Tablet Take 1 Tablet by mouth in the morning. 30 Tablet 5 05/19/2023 Active Ibuprofen 800 MG Oral Tablet (Motrin)Indications :Pain in unspecified limb TAKE ONE TABLET BY MOUTH EVERY 8 HOURS NEEDED FOR PAIN 90 Tablet 1 06/17/2023 Active documented as of this encounter (statuses as of 07/30/2023) Active Problems Problem Noted Date Controlled type 2 diabetes m romaitus with diabetic neuropathy, with long-term current use of insulin 02/13/2023 Primary open-angle glaucoma, bilateral, moderate stage 09/30/2022 Type 2 diabetes mellitus wit h mild nonproliferative retinopathy of both eyes without macular edema 03/29/2022 Neuropathy of both feet 05/29/2020 Type 2 diabetes mellitus wit h microalbuminuria, with long-term current use of insulin 02/23/2019 Chronic pain of both shoulders 8 Status post left hip replacement 018 Fatty liver 01/16/2017 Essential hypertension with goal blood p ressure less than 140/90 09/02/2016 Hammer toe, acquired 01/28/2014 Type 2 diabetes mellitus wit h target hemoglobin A1c of less than 7.5 percent 12/27/2011 Overview: ICD-10 update of inactive term Hyperlipidemia with target LDL less than 70 11/07/2009 Overview: Per Lipid Taxonomy. Migraine without aura and without status migrainosus, not intractable 04/01/2007 documented as of this encounter (statuses as of 07/30/2023) Resolved Problems Problem Noted Date Resolved Date Diabetes mellitus type II, controlled 09/30/2022 02/13/2023 Primary open-angle glaucoma, bilateral, mild sta ge 03/29/2022 09/30/2022 Mild nonproliferative diabet ic retinopathy without macular edema associated with type 2 diabetes mellitus 03/14/2022 022 Diabetes mellitus type II, controlled 09/27/2021 09/27/2021 Trigger ring finger of left hand 08/29/2020 02/28/2021 Type 2 diabetes mellitus wit h diabetic neuropathy, unspecified 08/22/2020 02/28/2021 Other proteinuria 02/23/2019 02/23/2019 Chronic left shoulder pain 08/25/201808/25 Hip pain, right 08/25/2018 04/28/2020 Overview: acute Glaucoma 08/25/2018 09/16/2022 DM type 2 causing eye disease 02/06/2016 Overview: nonproliferative retinopathy left eye Nonproliferative diabetic retinopathy 02/06/2016 05/29/2020 Overview: Left eye Type 2 diabetes mellitus wit h diabetic chronic kidney disease 12/04/2015 09/22/2017 HTN, goal below 140/90 05/31/2015 6 Osteoarthritis, shoulder 12/15/2014 017 Bursitis/tendonitis, shoulder 12/15/2014 Osteoarthritis of thumb 10/29/2013 08/25/20 18 Cervical spinal stenosis 02/09/2013 018 HTN, goal below 140/80 07/20/2012 5 Overview: Per HTN Protocol #27. DM type 2 causing eye disease 05/05/2012 Kidney disease, chronic, stage II (GFR 60-89 ml/ min) 02/05/2011 09/22/2017 Obesity, Class I, BMI 30.0-34.9 (see actual BMI) 02/22/2010 02/28/2021 Overview: Per Obesity Taxonomy HTN, goal below 130/80 11/08/2009 2 HTN, goal below 140/90 10/06/2009 9 Overview: Modified per HTN Taxonomy. Type 2 diabetes mellitus wit h hemoglobin A1c goal of less than 7.0% 09/14/2009 12/04/2011 Overview: Modified per Diabetes protocol #14. ICD-10 update of inactive term Closed fracture of multiple ribs 07/17/2009 05/22/2010 Electrolyte and fluid disorder 07/17/2009 0 05/22/2010 Anemia 07/17/2009 10/29/2013 Obesity, BMI not known 11/11/2008 0 Overview: Per Obesity Taxonomy Spasm of muscle 07/31/2007 03/01/2008 LOC PRIM [id number] 04/23/2006 04/12/20 08 ADVANCE DIRECTIVE INFORMATION 12/18/2005 Overview: No, Advance Directive brochure given to patient at prior appointment. Other specified glaucoma 09/11/2005 013 OPEN WOUND OF FINGER 02/07/2005 03/01/2008 Bunion 05/10/2004 03/01/2008 NEURALGIA-NEURITIS NOS 03/04/2003 8 Dermatitis 03/04/2003 03/01/2008 DM type 2, not at goal 12/28/2002 9 Overview: Modified per Diabetes protocol #14. Mixed dyslipidemia 12/28/2002 11/07/2009 Overview: Per Lipid Taxonomy. Calculus of ureter 12/28/2002 08/25/2018 DIAB RENAL MANIF ADULT 12/28/2002 6 BENIGN HYPERTENSION 10/06/2009 Overview: Modified per HTN Taxonomy. Ganglion 03/01/2008 UNILAT INGUINAL HERNIA 8 LOSS OF TEETH, ACQUIRED 03/01/20 08 Ganglion 03/01/2008 Internal hemorrhoids 10/28/2008 Diverticulosis of colon 03/01/20 08 Rotator cuff syndrome 08/25/2018 Calcium deposit tendon 8 Overview: right shoulder. Degeneration of cervical intervertebral disc 08/25/2018 Displacement of cervical int ervertebral disc without myelopathy 05/10/2009 Overview: C5-6 Mild nonproliferative diabetic retinopathy(362.0 4) 10/29/2013 documented as of this encounter (statuses as of 07/30/2023) Immunizations Name Administration Dates Next Due COVID-19 mRNA, LNP-s, No Pre serve, 2-Dose Series (Moderna) 02/06/2021,01/09/2021 Covid-19 Mrna, Lnp-s, No Preserve, Booster (Mode rna) 11/06/2021 Pneumococcal Conjugate Vacc, 13 Valent (Prevnar) [...] pur e alcohol) 1-2 drinks per month Food Insecurity Answer Date Recorded Within the past 12 months, y ou worried that your food would run out before you got money to buy more. Never true 05/29/2020 Within the past 12 months, t he food you bought just didn't last and you didn't have money to get more. Never true 05/29/2020 Sex Assigned at Date Recorded Not on file Job Start Date Occupation Industry Not on file Not on file Not on file documented as of this encounter Last Filed Vital Signs Vital Sign Reading Time Taken Comments Blood Pressure - - Pulse - - Temperature 35.8 C (96.5 F) 07/30/2023 8:49 AM ED T Respiratory Rate - - Oxygen Saturation - - Inhaled Oxygen Concentration - - Weight 107.7 kg (237 lb 8 oz) 07/30/2023 8:49 AM EDT Height 180.3 cm (5' 10.98") 07/30/2023 8:49 AM E DT Body Mass Index 33.14 07/30/2023 8:49 AM EDT documented in this encounter Progress Notes * Femi Covarrubias PA-C - 07/30/2023 9:08 AM EDT Images from the original note were not included. 10/08/2022 HISTORY OF PRESENT ILLNESS This 67 year old YO male is seen at the request of Constance Waddell DO for the evaluation of impacted cerumen and left sided hearing loss. Patient reports that one month ago woke up and felt like something was blocking his left ear. He was seen at a local urgent care and was told there was no cerumen. Was told to use Claritin and Flonase-- he did use this but felt it did not make much of a difference. Left ear continues to feel muffled and significant decreased hearing. However, he has noticed mild improvement in hearing over the last month. No illness. No injury, trauma, recurrent infections, otalgia, otorrhea, tinnitus. No loud noise exposures. No recent change in medications. Past Medical History: Diagnosis Date Acute prostatitis 08/28/00 Treated with Septra Bunion 05/10/2004 Bursitis/tendonitis, shoulder 12/15/2014 Calcium deposit tendon right shoulder. Calculus of ureter 09/01 bilateral Cervical spinal stenosis 02/09/2013 Closed fracture of multiple ribs 07/17/2009 Degeneration of cervical intervertebral disc Dermatitis 03/04/2003 Displacement of cervical intervertebral disc without myelopathy 02/06 C5-6 - left side Diverticulosis of colon DM type 2 causing eye disease (HCC) 05/05/2012 DM type 2 causing renal disease (HCC) DM type 2, goal A1c below 7 07/06/[address] [facility] with sugar of 390, started on insulin DM type 2, not at goal ([facility]) 1992 Encounter for ophthalmic examination and evaluation 01/14/02 Dr. Moura Essential hypertension with goal blood pressure less than 140/90 09/02/2016 Fatty liver 01/16/2017 Ganglion 08/11/[address] Smart at [facility] Hammer toe, acquired 01/28/2014 Hip pain, right 08/25/2018 acute HTN, goal below 130/80 11/08/2009 HTN, goal below 140/90 05/31/2015 Influenza B 01/23/2017 nasal swab Internal hemorrhoids Kidney disease, chronic, stage II (GFR 60-89 ml/min) 02/05/2011 Loss of teeth due to trauma, extraction, or periodontal disease Migraine with intractable migraine Mild nonproliferative diabetic retinopathy(362.04) 11/08 Mixed dyslipidemia Neuralgia and neuritis 03/04/2003 Nonproliferative diabetic retinopathy (HCC) 02/06/2016 Left eye Open wound of finger 02/07/2005 Osteoarthritis of thumb 10/29/2013 Osteoarthritis, shoulder 12/15/2014 Other specified glaucoma Primary localized osteoarthrosis, lower leg 04/23/2006 Rotator cuff syndrome Spasm of muscle 07/31/2007 Type 2 diabetes mellitus with diabetic chronic kidney disease (HCC) 12/04/2015 Unilateral inguinal hernia 08/23/[address] Smyth at [facility] 09/05/88 Past Surgical History: Procedure Laterality Date ARTHO,SHOUL,W/ROTATOR CUFF 01/2015 left shoulder COLONOSCOPY, GI REFERRAL OP 12/06 Dr. Cortes - internal hemorrhoids CT CHEST/ABD W IV CONTRAST - WO ORAL CONTRAST 07/13/09 fracture left 4th through 7th ribs [facility] CXR 2 VIEWS AP/PA & LATERAL 07/14/09 left rib fxs [facility] CYSTOSCOPY/INSERTION OF STENT 09/20/02 Dr. Candelaria FRAGMENT KIDNEY STONE BY SHOCK WAVE 10/27/02 Dr. Candelaria HOLTER COMPLETE (COMM PRAC) 11/25/07 normal IOF XR ELBOW, 3 OR MORE VIEWS 06/25/01 [facility]-xray- degenerative changes NM BONE THREE PHASE 02/19/02 [facility]slightly increased uptake in the right elbow.these findings are thought to reflect degenerative changes.no radiographic evidence for osteomyelitis.Focal uptake in the thoracic spine corresponds to degenerative changes seen on conventional NM BONE THREE PHASE radiographs REMOVE WRIST GANGLION 08/11/86 Ganglion Cyst Wrist Excis Primary REPAIR INGUINAL HERNIA, UNDER 6 MO 09/05/88 Inguinal Hernia Repair,<6mo,Reducible TENDON SHEATH INCISION, FINGER Left 11/29/2020 TRIGGER FINGER RELEASE performed by David Morales MD at [facility] TENDON SHEATH INCISION, FINGER Left 04/23/2023 TRIGGER FINGER RELEASE performed by David Morales MD at [facility] TOTAL HIP REPLACEMENT & PROSTHESIS Left 04/30/2018 XR ACROMIOCLAVICULAR JOINTS 06/25/01 [facility] xray- degenerative AC changes, otherwise negative right shoulder XR ELBOW 3 OR MORE VIEWS 02/19/02 [facility]degenerative changes are noted in the elbow with an olecranon spur. XR T SPINE ANY THREE VIEWS 02/19/02 [facility]degenerative changes are seen in the thoracic spine. There is no evidence for old or recent fracture. Medications Current Outpatient Medications Medication Sig Dispense Refill FISH OIL 1000 MG PO CAPS 2 pills each day (Patient taking differently: Take 1 Capsule by mouth.) 120 Cap 5 Blood Glucose Monitoring Suppl (Hyperoptic ULTRA 2) w/Device KIT Test blood sugar twice daily 1 Kit 0 Glucose Blood (Helpful TechnologiesUCH ULTRA BLUE) STRP Test 2 to 3 times a day [id number] 100 Strip 5 Meclizine HCl 25 MG Oral Tablet (Antivert) Take 1 Tab by mouth 3 times a day as needed for Dizziness. 30 Tab 1 Centrum Silver 50+Men Oral Tablet Take by mouth . Lisinopril 20 MG Oral Tablet (Prinivil) Take 1 Tablet (20 mg) by mouth in the morning. 90 Tablet 3 SUMAtriptan Succinate 100 MG Oral Tablet TAKE 1 TABLET NEEDED FOR HEADACHE, MAY REPEAT IN 2 HOURS IF NEEDED. MAX 2 TABS IN 24 HOURS 16 Tablet 1 Atorvastatin Calcium 80 MG Oral Tablet (Lipitor) Take 1 Tablet (80 mg) by mouth in the morning. 90 Tablet 3 metFORMIN HCl 1000 MG Oral Tablet (Glucophage) Take 1 Tablet (1,000 mg) by mouth 2 times a day withmorning and evening meals. 180 Tablet 3 Ozempic (1 MG/DOSE) 2 MG/1.5ML Subcutaneous Solution [...] APPLY TO AFFECTED AREA(S) THREE TIMES DAILY [id number] g 1 Meloxicam 15 MG Oral Tablet Take 1 Tablet by mouth in the morning. 30 Tablet 5 Ibuprofen 800 MG Oral Tablet (Motrin) TAKE ONE TABLET BY MOUTH EVERY 8 HOURS NEEDED FOR PAIN 90 Tablet 1 No current facility-administered medications for this visit. Allergies Review of patient's allergies indicates: Allergen Reactions Becki Rivera Family History Family History Problem Relation Age of Onset Heart Disorder Mother chf, hypoglycemia, stroke, at age 78 Other (Other) Father alcohol abuse in his 70's No Known Problems Sister No Known Problems Brother No Known Problems Brother Heart disease Brother age 30 congenital heart disease Other (Other) Brother MVA Other (menigi) Brother menigitis No Known Problems Son Social History Social History Tobacco Use Smoking status: Never Smokeless tobacco: Never Substance Use Topics Alcohol use: No Comment: 1-2 drinks per month Vaping/E-Cigarette Use Vaping/E-Cigarette Use Never User Vaping/E-Cigarette Substances Nicotine No Other No Flavoring No THC No Cannabidiol (CBD) No Vaping/E-Cigarette Devices Disposable No Pre-filled or Refillable Cartridge No Refillable Tank No Pre-filled Pod No REVIEW OF SYSTEMS Negative for constitutional, heart, lung, liver, kidney, digestive, hematologic, neurologic, rheumatologic, or endocrine complaints except as per history of present illness and past medical history. PHYSICAL EXAMINATION: Temp 35.8 C (96.5 F) (Tympanic) | Ht 1.803 m (5' 10.98") | Wt 107.7 kg (237 lb 8 oz) | BMI 33.14 kg/m | BSA 2.32 m Physical Examination: General: this is a healthy appearing male who appears his stated age. The patient is alert and appropriately verbally conversant without hoarseness. IN ORDER TO BETTER EXAMINE THE EARS, THE PATIENT WAS EXAMINED USING THE OPERATING MICROSCOPE. FINDINGS ARE NOTED BELOW. Ears: Examination of the ears revealed that the auricles were normally formed with no lesions. The right external auditory canal was impacted with cerumen. It was removed using suction and forceps atraumatically by me. The right TM was WNL. The right middle ear space was WNL. The left external auditory canal was impacted with cerumen. It was removed using suction and forceps atraumatically by me. The left TM was WNL. The left middle ear space was WNL Encounter Diagnoses Name Primary? Asymmetrical sensorineural hearing loss Yes Bilateral impacted cerumen Plan: Findings of examination and recommendations were discussed with the patient. Cerumen removed from both canals. Reviewed audiogram with patient. Type A tymp, SNHL mild Right, mild to mod Left. Discussed trial of prednisone- pt declined, A1C 7.8 and pt historically does not tolerate prednisone well. Discussed imaging to further evaluate- pt declined at this time. He would like to watch and wait as he feels like symptoms are gradually improving, will recheck in 3 months, to call sooner with any concerns. Pt verbalized understanding and agrees with plan. Questions/Concerns addressed. Patient Goals for plan of care discussed in detail. Femi Covarrubias PA-C OTOLARYNGOLOGY [address] [place] [id number] 07/30/23 documented in this encounter Nursing Notes * Gianluca Chavez CMA - 07/30/2023 8:47 AM EDT Chief Complaint Patient presents with Follow Up Hearing loss in left ear Levy Ellis is a 68 year old male who presents today with hearing loss in his left ear that started 1 month ago. He states that the hearing loss was sudden. He denies tinnitus. He has pressure inhis left ear. He denies trauma, or infection. documented in this encounter Plan of Treatment Upcoming Encounters Date Type Specialty Care Team Description 10/03/2023 Office Visit Family Medicine Constance Waddell, [address] [place] [id number] 10/29/2023 Office Visit Otolaryngology Isabelle Combs PA-C [address] [place] [address] 11/06/2023 Appointment Radiology 11/06/2023 Office Visit Urology Clinic, [facility] [place] Resident [address] [facility] [place] [address] Health Maintenance Due Date Last Done Comments Sigmoidoscopy 1998 Zoster Vaccines (1 of 2) 2003 Colonoscopy 12/24/2015 12/24/2005 Depression Screening, Annual for Pts 12 and Over 05/29/2021 05/29/2020 Cologuard 09/13/2021 09/13/2018, 09/07/2018 COVID-19 Vaccine (4 - Moderna series) 01/01/2022 11/06/2021, 02/06/2021, 01/09/2021 DIABETES-EYE EXAM 03/07/2023 03/07/2022, , 03/03/2017, Additional history exists Colorectal Cancer Screening 07/29/2023 Fecal Occult Blood Test 07/29/2023 07/29/2022 Influenza Vaccine (FLU shot) (#1) 2023 08/29/2020 GFR 09/30/2023 09/30/2022, 03/02, 09/27/2021, Additional history exists Albumin/Creatinine Ratio 10/01/2023 022, 09/27/2021, 08/30/2020, Additional history exists HbA1c 10/02/2023 04/01/2023, 09/02, 03/29/2022, Additional history exists B-12 04/01/2024 04/01/2023, 03/02, 02/28/2021, Additional history exists DIABETES-FOOT EXAM 04/01/2024 04/01/2023, 1 , 08/29/2020, Additional history exists Lipid Panel 04/01/2028 04/01/2023, 03/02, 02/28/2021, Additional history exists DTaP,Tdap,and Td Vaccines (2 - Td or Tdap) 03/29/2032 03/29/2022, 06/25/2001 Pneumococcal Vaccine: 65+ Years Completed 04/01/2023, 02/23/2019, 10/21/2000 GARDASIL-HPV IMMUNIZATION SERIES Aged Out No longer eligible based on patient's age to complete this topic Hepatitis B Aged Out No longer eligi ble based on patient's age to complete this topic MENINGOCOCCAL (MENACTRA/MENVEO) Aged Out No longer eligible based on patient's age to complete this topic documented as of this encounter Medical Devices Not on filedocumented as of this encounter Visit Diagnoses Diagnosis Asymmetrical sensorineural hearing loss- Primary Sensorineural hearing loss, asymmetrical Bilateral impacted cerumen Impacted cerumen documented in this encounter Care Teams Inseam Leveler Relationship Specialty Start Date End Date Constance Waddell, [address] [place] [id number] PCP - General Internal Medicine 08/25/18 documented as of this encounter
--- OUTSIDE RECORDS SUMMARY | 2023-10-31 14:02 | External Medical Summary | Summary of Care ---
Author Name Unknown Organization [facility] Address [address] [place] [address] Phone [phone] Care Team Providers Care [employer] Mixer Name Role Phone Constance Waddell DO Primary Care Provider [phone] Reason for Visit * Reason Comments Re-Check Pt denies any concer ns at this time. Encounter Details Date Type Department Care Team (Latest Contact Info) Description 10/03/2023 2:30 PM EDT Office Visit Family Medicine [address] [place] [phone] Constance Waddell [address] [place] [phone] Type 2 diabetes mellitus with target hemoglobin A1c of less than 7.5 percent (HCC)*; Hyperlipidemia with target LDL less than 70; Essential hypertension with goal blood pressure less than 140/90; Primary osteoarthritis of right hip; Primary osteoarthritis of right knee Allergies Active Allergy Reactions Criticality Noted Date Comments Becki Rivera 06/20/2000 documented as of this encounter (statuses as of 10/03/2023) Medications Medication Sig Dispensed Refills Start Date End Date Status FISH OIL 1000 MG PO CAPSIndications:M ixed dyslipidemia 2 pills each day 120 Cap 5 01/28/2014 Active Additional Information Patient taking differently: 1,000 mgOral, Reported on 04/01/2023 Blood Glucose Monitoring Suppl (ONETOUCH ULTRA 2) w/Device KIT Test blood sugar twice daily 1 Kit 0 06/19/2020 Active Glucose Blood (ONETOUCH ULTRA BLUE) STRPIndications:D M type 2, not at goal ([facility]) Test 2 to 3 times a day dx-E11.9 100 Strip 5 06/28/2020 Active Meclizine HCl 25 MG Oral Tablet (Antivert) Take 1 Tab by mouth 3 times a day as needed for Dizziness. 30 Tab 1 01/01/2021 Active Centrum Silver 50+Men Oral Tablet Take by mouth . 0 Active SUMAtriptan Succinate 100 MG Oral TabletIndications :Migraine without aura and without status migrainosus, not intractable TAKE 1 TABLET NEEDED FOR HEADACHE, MAY REPEAT IN 2 HOURS IF NEEDED. MAX 2 TABS IN 24 HOURS 16 Tablet 1 10/28/2022 Active Atorvastatin Calcium 80 MG Oral Tablet (Lipitor)Indicati ons:Dyslipidemia, goal LDL below 100 Take 1 Tablet (80 mg) by mouth in the morning. 90 Tablet 3 10/29/2022 Active Ozempic (1 MG/DOSE) 2 MG/1.5ML Subcutaneous Solution Pen-injector (Semaglutide (1 MG/DOSE)) Inject 1 mg under the skin once a week. 9 mL 3 12/20/2022 Active BD Pen Needle Short U/F 31G X 8 MM (Insulin Pen Needle)Indication s:Type 2 diabetes mellitus with hemoglobin A1c goal of less than 7.0% (HCC) USE DIRECTED 3 TIMES DAILY WITH FLEXPEN INSULIN Dx: E11.9 300 Each 5 02/05/2023 Active Levemir FlexTouch 100 UNIT/ML Subcutaneous Solution Pen-injector (Insulin Detemir)Indicatio ns:Type 2 diabetes mellitus with hemoglobin A1c goal of less than 7.0% (HCC) Inject 65 Units under the skin daily 30 mL 5 02/14/2023 Active Additional Information Patient taking differently: 60 Units, Inject 60 Units under the skin daily, Reported on 04/01/2023 Ventolin HFA 108 (90 Base) MCG/ACT Inhalation Aerosol SolutionIndicatio ns:Pneumonia of right lower lobe due to infectious organism Inhale 2 Puffs by mouth every 4 hours as needed for Cough, Shortness of Breath or Wheezing. 18 g 0 02/13/2023 Active NovoLOG FlexPen 100 UNIT/ML Subcutaneous Solution Pen-injector (insulin aspart)Indication s:Type 2 diabetes mellitus with hemoglobin A1c goal of less than 7.0% ([facility]) inject 24 units under the skin with [...] 03/08/2023 Active Mupirocin 2 % External Ointment (Bactroban)Indica tions:Skin irritation APPLY TO AFFECTED AREA(S) THREE TIMES DAILY DIRECTED 22 g 1 05/20/2023 Active Ibuprofen 800 MG Oral Tablet (Motrin)Indicatio ns:Pain in unspecified limb TAKE ONE TABLET BY MOUTH EVERY 8 HOURS NEEDED FOR PAIN 90 Tablet 1 06/17/2023 Active metFORMIN HCl 1000 MG Oral Tablet (Glucophage)Indic ations:Type 2 diabetes mellitus with target hemoglobin A1c of less than 7.5 percent ([facility]) Take 1 Tablet by mouth 2 times a day with morning and evening meals. 180 Tablet 3 09/29/2023 Active Lisinopril 20 MG Oral Tablet (Prinivil) Take 1 Tablet by mouth in the morning. 90 Tablet 3 09/29/2023 Active Meloxicam 15 MG Oral Tablet Take 1 Tablet by mouth in the morning. 30 Tablet 5 05/19/2023 10/03/20 23 Discontinued documented as of this encounter (statuses as of 10/03/2023) Active Problems Problem Noted Date Diagnosed Date Primary osteoarthritis of right hip 10/03/2023 Primary osteoarthritis of right knee 10/03/2023 Controlled type 2 diabetes m romaitus with [...] as of this encounter (statuses as of 10/03/2023) Resolved Problems Problem Noted Date Diagnosed Date [...] Spasm of muscle 07/31/2007 03/01/2008 LOC PRIM [id number] 04/23/200603/31 ADVANCE DIRECTIVE INFORMATION 12/18/2005 08/25/2018 Overview: [...] as of this encounter (statuses as of 10/03/2023) Immunizations Name Administration Dates Next Due COVID-19 [...] Sign Reading Time Taken Comments Blood Pressure 138/68 10/03/2023 2:42 PM EDT Pulse 84 10/03/2023 2:42 PM EDT Temperature 36.8 C (98.3 F) 10/03/2023 2:42 PM ED T Respiratory Rate - - Oxygen Saturation 95% 10/03/2023 2:42 PM EDT Inhaled Oxygen Concentration - - Weight 106.8 kg (235 lb 6.4 oz) 10/03/2023 2:42 PM EDT Height - - Body Mass Index 32.85 07/30/2023 8:49 AM EDT documented in this encounter Progress Notes * Constance Waddell, - 10/03/2023 2:45 PM EDT Subjective: Levy Ellis is a 68 year old male. Chief Complaint Patient presents with Re-Check Pt denies any concerns at this time. HPI: Levy Ellis presents today for routine follow up. He saw orthopedics in [place] for his right knee/hip which are both bad. He plans to have surgeryscheduled in the near future. He is due for colonoscopy but would like to defer this until he gets his joints dealt with and some other personal issues. No problems with his bowels. Minimal neuropathy symptoms. He does not check his blood sugars. Denies symptoms of low blood sugars. No known heart problems. Last EKG was done in 2018. He declines his flu and COVID shots. Declines shingles shot. PMH: Patient Active Problem List Diagnosis Code Migraine [...] microalbuminuria, with long-term current use of insulin ([facility]) E11.29,R80.9, Z79.4 Neuropathy of both feet G57.93 Primary open-angle glaucoma, bilateral, moderate stage H40.1132 Controlled type 2 diabetes mellitus with diabetic neuropathy, with long-term current use of insulin([facility]) E11.40, Z79.4 Primary osteoarthritis of right hip M16.11 Current Outpatient Medications Medication Sig Dispense Refill FISH OIL 1000 MG PO CAPS 2 pills each day (Patient taking differently: Take 1 Capsule by mouth.) 120 Cap 5 Blood Glucose Monitoring Suppl (MentorDOTMe ULTRA 2) w/Device KIT Test blood sugar twice daily 1 Kit 0 Glucose Blood (NutriVenturesUCH ULTRA BLUE) STRP Test 2 to 3 [...] in the morning. 90 Tablet 3 Ozempic (1 MG/DOSE) 2 MG/1.5ML [...] APPLY TO AFFECTED AREA(S) THREE TIMES DAILY [id number] g 1 Ibuprofen 800 MG Oral Tablet (Motrin) TAKE ONE TABLET BY MOUTH EVERY 8 HOURS NEEDED FOR PAIN 90 Tablet 1 metFORMIN HCl 1000 MG Oral Tablet (Glucophage) Take 1 Tablet by mouth 2 times a day with morning and evening meals. 180 Tablet 3 Lisinopril 20 MG Oral Tablet (Prinivil) Take 1 Tablet by mouth in the morning. 90 Tablet 3 No current facility-administered medications for this visit. Review of patient's allergies indicates: Allergen Reactions Codeine Hives Objective: BP 138/68 | Pulse 84 | Temp 36.8 C (98.3 F) | Wt 106.8 kg (235 lb 6.4 oz) | SpO2 95% | BMI 32.85 kg/m | BSA 2.31 m General: alert, healthy, no distress, well nourished, and well developed Neck: supple, no adenopathy, thyroid normal size, non-tender, without nodularity Heart: regular rate & rhythm and no murmur Lungs: chest symmetric with normal AP diameter, no chest deformities noted, normal respiratory rateand rhythm, lungs clear to auscultation Abdomen: abdomen soft and non-tender Extremities: no joint deformities, effusion, or inflammation, no edema Neuro Exam: alert & oriented x 3 with fluent speech, no focal motor/sensory deficits, gait normal Skin: skin color, texture, turgor are normal, no rashes or significant lesions ASSESSMENT/PLAN: Type 2 diabetes mellitus with target hemoglobin A1c of less than 7.5 percent (HCC) (Primary) - update labs and adjust meds as needed. He does not currently check his blood sugars. - HEMOGLOBIN A1C; Future; Expected date: 10/03/2023 - ALBUMIN / CREATININE RATIO, URINE; Future; Expected date: 10/03/2023 - CBC WITH WBC DIFFERENTIAL AND ANEMIA REFLEX WORKUP; Future; Expected date: 10/03/2023 Hyperlipidemia with target LDL less than 70 - continue atorvastatin. - COMPREHENSIVE METABOLIC PANEL; Future; Expected date: 10/03/2023 Essential hypertension with goal blood pressure less than 140/90 - at goal. Continue same meds. - COMPREHENSIVE METABOLIC PANEL; Future; Expected date: 10/03/2023 Primary osteoarthritis of right hip Primary osteoarthritis of right knee - check preop EKG today in anticipation of his upcoming surgery. - EKG; Future; Expected date: 10/03/2023 Follow-up: Return in about 6 months (around 04/02/2024). | Check-out note: Labs today. Constance Waddell DO documented in this encounter Plan of Treatment Upcoming Encounters Date Type Department Care Team (Late st Contact Info) Description 10/13/2023 11:00 AM EST Office Visit Orthopaedics, [address] [phone] Samuel Cancino MD [address] [facility] [facility] [facility] [place] [address] 10/29/2023 10:40 AM EST Office Visit Otolaryngology [facility] [address] [facility] [place] [address] Isabelle Combs PA-C [address] [place] [phone] 11/06/2023 2:30 PM EST Appointment Radiology, [place] [address] [place] [id number] 11/06/2023 3:00 PM EST Office Visit Urology, [place] [address] [facility] [id number] Alba Chan MD [address] [place] [address] Pending Results Name Type Priority Associated Diagnoses Date /Time COMPREHENSIVE METABOLIC PANEL Lab Routine Hyperlipidemia with target LDL less than 70 Essential hypertension with goal blood pressure less than 140/90 10/03/2023 3:21 PM EDT HEMOGLOBIN A1C Lab Routine Type 2 diabetes mellitus with target hemoglobin A1c of less than 7.5 percent (HCC) 10/03/2023 3:21 PM EDT ALBUMIN / CREATININE RATIO, URINE Lab Routine Type 2 diabetes mellitus with target hemoglobin A1c of less than 7.5 percent (HCC) 10/03/2023 3:21 PM EDT CBC WITH WBC DIFFERENTIAL AND ANEMIA REFLEX WORKUP Lab Routine Type 2 diabetes mellitus with target hemoglobin A1c of less than 7.5 percent (HCC) 10/03/2023 3:21 PM EDT Scheduled Orders Name Type Priority Associated Diagnoses Orde r Schedule COMPREHENSIVE METABOLIC PANEL Lab Routine Hyperlipidemia with target LDL less than 70 Essential hypertension with goal blood pressure less than 140/90 Expected: 10/03/2023 (Approximate), Expires: 10/02/2024 HEMOGLOBIN A1C Lab Routine Type 2 diabetes mellitus with target hemoglobin A1c of less than 7.5 percent (HCC) Expected: 10/03/2023 (Approximate), Expires: 10/02/2024 ALBUMIN / CREATININE RATIO, URINE Lab Routine Type 2 diabetes mellitus with target hemoglobin A1c of less than 7.5 percent (HCC) Expected: 10/03/2023 (Approximate), Expires: 10/02/2024 EKG EKG Routine Primary osteoarthritis of right knee Expected: 10/03/2023 (Approximate), Expires: 11/02/2024 CBC WITH WBC DIFFERENTIAL AND ANEMIA REFLEX WORKUP Lab Routine Type 2 diabetes mellitus with target hemoglobin A1c of less than 7.5 percent (HCC) Expected: 10/03/2023 (Approximate), Expires: 10/03/2024 Health Maintenance Due Date Last Done Comments [...] 04/01/2023, 1 , 08/29/2020, Additional history exists Diabetic Eye Exam 09/29/2024 09/29/2023, , 09/03/2019, Additional history exists Lipid Panel 04/01/2028 04/01/2023, [...] hemoglobin A1c of less than 7.5 percent (HCC)- Primary Type II or unspecified type diabetes mellitus without mention of complication, not stated as uncontrolled Hyperlipidemia with target LDL less than 70 Other and unspecified hyperlipidemia Essential hypertension with goal blood pressure less than 140/90 Primary osteoarthritis of right hip Primary localized osteoarthrosis, pelvic region and thigh Primary osteoarthritis of right knee Primary localized osteoarthrosis, lower leg documented in this encounter Care Teams [employer] Mixer Relationship Specialty Start Date End Date Constance Waddell DO [address] [place] [address] [place] [id number] PCP - General Internal Medicine 08/25/18 documented as of this encounter"
--- OUTSIDE RECORDS SUMMARY | 2023-10-31 14:02 | External Medical Summary ---
Author Name Unknown Address Unknown Organization [id number]:[facility] - [address] [place] [address] Laboratory Report Ordering Provider Test Date Status JERRELL BRUNNER 10/03/2023 15:21:45 Final Observation Date Value Abnormality Reference (Units ) Status SYNC LEUKOCYTES IN BLOOD BY AUTOMATED COUNT 10/03/2023 15:21:45 9.61 4.00-10.80 (K/uL) Final Neutrophils/100 leukocytes in Blood by Manual count 10/03/2023 15:21:45 30.0 Below low normal 40.0-75.0 (%) Final Lymphocytes/100 leukocytes in Blood by Manual count 10/03/2023 15:21:45 60.0 Above high normal 18.0-42.0 (%) Final Monocytes/100 leukocytes in Blood by Manual count 10/03/2023 15:21:45 7.0 1.0-11.0 (%) Final Eosinophils/100 leukocytes in Blood by Manual count 10/03/2023 15:21:45 3.0 0.0-6.0 (%) Final Neutrophils [#/volume] in Blood by Manual count 10/03/2023 15:21:45 2.88 1.80-7.70 (K/uL) Final Lymphocytes [#/volume] in Blood by Manual count 10/03/2023 15:21:45 5.77 Above high normal 1.00-4.80 (K/uL) Final Monocytes [#/volume] in Blood by Manual count 10/03/2023 15:21:45 0.67 0.00-1.10 (K/uL) Final Eosinophils [#/volume] in Blood by Manual count 10/03/2023 15:21:45 0.29 0.00-0.70 (K/uL) Final Variant lymphocytes [Presence] in Blood by Light microscopy 10/03/2023 15:21:45 Present Abnormal None Seen Final Performing Location [facility] - [address] [facility] [address]
--- OUTSIDE RECORDS SUMMARY | 2023-10-31 14:02 | External Medical Summary ---
Author Name Unknown Address Unknown Organization [id number][facility] [place] [address] [facility] [place] [address] Laboratory Report Ordering Provider Test Date Status JERRELL BRUNNER 10/03/2023 15:21:45 Final Observation Date Value Abnormality Reference (Units ) Status BUN 10/03/2023 15:21:45 17 6-20 (mg/dL) Final Creatinine 10/03/2023 15:21:45 1.1 0.6-1.2 (mg/dL) Final Glomerular filtration rate/1.73 sq M.predicted [Volume Rate/Area] in Serum, Plasma or Blood by Creatinine-based formula (CKD-EPI) 10/03/2023 15:21:45 73 >=60 (mL/min) Final eGFR is calculated based on the CKD-EPI 2020 equation SODIUM 10/03/2023 15:21:45 139 135-146 (m mol/L) Final Potassium 10/03/2023 15:21:45 4.0 3.5-5.1 (m mol/L) Final Cl 10/03/2023 15:21:45 108 Above high normal 98 -107 (mmol/L) Final CO2 10/03/2023 15:21:45 23 22-32 (mmo l/L) Final Anion gap 10/03/2023 15:21:45 8 7-15 (mmol /L) Final Glucose 10/03/2023 15:21:45 79 70-120 (mg /dL) Final Albumin 10/03/2023 15:21:45 4.6 3.8-5.0 (g /dL) Final AST (Aspartate aminotransferase) 10/03/2023 15:21:45 40 10-50 (U/L) Fin al Alk Phos 10/03/2023 15:21:45 47 35-130 (U/ L) Final Bilirubin, Total 10/03/2023 15:21:45 0.3 <=1 .2 (mg/dL) Final Calcium 10/03/2023 15:21:45 9.6 8.4-10.2 ( mg/dL) Final Protein 10/03/2023 15:21:45 7.1 6.0-8.3 (g /dL) Final ALT (Alanine aminotransferase) 10/03/2023 15:21:45 62 Above high normal 10-50 (U/L) Final Performing Location [facility] [place] [address] [facility] [address]
--- OUTSIDE RECORDS SUMMARY | 2023-10-31 14:02 | External Medical Summary ---
Author Name Unknown Address Unknown Organization [id number]:[facility] [address] [facility] [address] Laboratory Report Ordering Provider Test Date Status JERRELL BRUNNER 10/03/2023 15:21:45 Final Observation Date Value Abnormality Reference (Units ) Status HbA1C 10/03/2023 15:21:45 8.0 Above high normal 4. 0-5.6 (%) Final The use of HbA1c to monitor glycemic status is based on normal hemoglobin and HbA composition. This test should not be used in patients with abnormal hemoglobin that affects the half life of the red blood cell or the in vivo glycation rates. Glucose, estimated average 10/03/2023 15:21:45 183 Above high normal <126 (mg/dL) Doulgas marshall Performing Location [facility] - [address] [facility] [address]
--- OUTSIDE RECORDS SUMMARY | 2023-10-31 14:02 | External Medical Summary | Summary of Care ---
Author Name Unknown Organization [facility] Address [address] [place] [address] Phone [phone] Care Team Providers Care Echocardiography Tech Name Role Phone Constance Waddell Primary Care Provider Reason for Visit * Reason Comments Medication Discussion Encounter Details Date Type Department Care Team Description 07/03/2023 Pharmacy Pharmacy Call Center [address] [place] [address] Wb, Telepharmacy [facility] [address] [place] [address] Encounter for medication review* Allergies Active Allergy Reactions Severity Noted Date Comments Codealexandr Hivrodri 06/20/2000 documented as of this encounter (statuses as of 07/03/2023) Medications Medication Sig Dispensed Refills Start Date [...] 10/08/2022 Active SUMAtriptan Succinate 100 MG Oral TabletIndications: Migraine [...] 05/19/2023 Active Ibuprofen 800 MG Oral Tablet (Motrin)Indication s:Pain in unspecified limb TAKE ONE TABLET BY MOUTH EVERY 8 HOURS NEEDED FOR PAIN 90 Tablet 1 06/17/2023 Active Ozempic (1 MG/DOSE) 4 MG/3ML Subcutaneous Solution Pen-injector Inject 1 mg under the skin once a week. 0 03/21/2023 3 Discontinue d(Medicatio n List Clean Up) documented as of this encounter (statuses as of 07/03/2023) Active Problems Problem Noted Date Controlled type 2 diabetes m ellitus with [...] as of this encounter (statuses as of 07/03/2023) Resolved Problems Problem Noted Date Resolved Date [...] Spasm of muscle 07/31/2007 03/01/2008 LOC PRIM [id number] 04/23/2006 04/12/20 08 ADVANCE DIRECTIVE INFORMATION 12/18/2005 [...] as of this encounter (statuses as of 07/03/2023) Immunizations Name Administration Dates Next Due COVID-19 mRNA, LNP-s, No Pre serve, 2-Dose Series (Moderna) 02/06/2021,01/09/2021 Covid-19 Mrna, Lnp-s, No Preserve, Booster (Mode rna) 11/06/2021 Pneumococcal Conjugate Vacc, 13 Valent (Prevnar) 02/23/2019 Pneumococcal Conjugate Vaccine, 20-valent (Prevn ar20) 04/01/2023 Seasonal Influenza, Quadriva lent, No Preserve, Adjuvanted, 65+ Yrs, IM 08/29/2020 TDAP (age 10 and older)(Boostrix) 03/29/2022 [...] on file documented as of this encounter Progress Notes * Blanca Benavides, [facility] - 07/03/2023 9:51 AM EDT Images from the original note were not included. PHARMACY MTM PROGRESS NOTE [facility] ([facility]) [address] [facility] [place] [address] Service Delivery Delivery Method: Phone Outcome: CMR Completed Health Profile Current Conditions: Other (type 2 diabetes mellitus, hyperlipidemia, hypertension, migraine) Drug allergies & side effects: Review of patient's allergies indicates: Allergen Reactions Codeine Hives Med List Home Medications Provider Atorvastatin Calcium 80 MG Oral Tablet (Lipitor) Constance Waddell DO Take 1 Tablet (80 mg) by mouth in the morning. Associated Diagnoses: Dyslipidemia, goal LDL below 100 BD Pen Needle Short U/F 31G X 8 MM History Per Patient Associated Diagnoses: -- BD Pen Needle Short U/F 31G X 8 MM (Insulin Pen Needle) Constance Waddell DO USE DIRECTED 3 TIMES DAILY WITH FLEXPEN INSULIN Dx: E11.9 Associated Diagnoses: Type 2 diabetes mellitus with hemoglobin A1c goal of less than 7.0% (FORM[facility]LY [facility]) Blood Glucose Monitoring Suppl (ONETOUCH ULTRA 2) w/Device KIT Constance Waddell DO Test blood sugar twice daily Associated Diagnoses: -- Centrum Silver 50+Men Oral Tablet History Per Patient Associated Diagnoses: -- Desoximetasone 0.05 % External Cream History Per Patient Associated Diagnoses: -- Fenofibrate Micronized 134 MG Oral Capsule Constance Waddell DO TAKE ONE (1) CAPSULE by mouth DAILY BEFORE BREAKFAST Strength: 134 mg Associated Diagnoses: -- FISH OIL 1000 MG PO CAPS Joy Holm MD 2 pills each day Patient taking differently: Take 1 Capsule by mouth. Associated Diagnoses: Mixed dyslipidemia Glucose Blood (ONETOUCH ULTRA BLUE) STRP Betty Hector PA-C Test 2 to 3 times a day dx-E11.9 Associated Diagnoses: DM type 2, not at goal ([facility]) Ibuprofen 800 MG Oral Tablet (Motrin) Constance Waddell DO TAKE ONE TABLET BY MOUTH EVERY 8 HOURS NEEDED FOR PAIN Associated Diagnoses: Pain in unspecified limb Levemir FlexTouch 100 UNIT/ML Subcutaneous Solution Pen-injector (Insulin Detemir) Constance Waddell DO Inject 65 Units under the skin daily Patient taking differently: 60 Units. Inject 60 Units under the skin daily Associated Diagnoses: Type 2 diabetes mellitus with hemoglobin A1c goal of less than 7.0% (HCC) Lisinopril 20 MG Oral Tablet (Prinivil) Constance Waddell DO Take 1 Tablet (20 mg) by mouth in the morning. Associated Diagnoses: -- Meclizine HCl 25 MG Oral Tablet (Antivert) Anneliese Vasquez MD Take 1 Tab by mouth 3 times a day as needed for Dizziness. Associated Diagnoses: -- Notes: This prescription was filled on 12/28/2017. Any refills authorized will be placed on file. Meloxicam 15 MG Oral Tablet Samuel Cancino MD Take 1 Tablet by mouth in the morning. Associated Diagnoses: -- metFORMIN HCl 1000 MG Oral Tablet (Glucophage) Constance Waddell DO Take 1 Tablet (1,000 mg) by mouth 2 times a day with morning and evening meals. Associated Diagnoses: Type 2 diabetes mellitus with target hemoglobin A1c of less than 7.5 percent (HCC) Mupirocin 2 % External Ointment (Bactroban) Constance Waddell DO APPLY TO AFFECTED AREA(S) THREE TIMES DAILY DIRECTED Associated Diagnoses: Skin irritation NovoLOG FlexPen 100 UNIT/ML Subcutaneous Solution Pen-injector (insulin aspart) Constacne Waddell DO inject 24 units under the skin with breakfast and 20 units with lunch and 30 units with supper. Associated Diagnoses: Type 2 diabetes mellitus with hemoglobin A1c goal of less than 7.0% (HCC) Ozempic (1 MG/DOSE) 2 MG/1.5ML Subcutaneous Solution Pen-injector (Semaglutide (1 MG/DOSE)) Constance Waddell DO Inject 1 mg under the skin once a week. Associated Diagnoses: -- Ozempic (1 MG/DOSE) 4 MG/3ML Subcutaneous Solution Pen-injector History Per Patient Associated Diagnoses: -- SUMAtriptan Succinate 100 MG Oral Tablet Lala Zhu PA-C TAKE 1 TABLET NEEDED FOR HEADACHE, MAY REPEAT IN 2 HOURS IF NEEDED. MAX 2 TABS IN 24 HOURS Associated Diagnoses: Migraine without aura and without status migrainosus, not intractable Ventolin HFA 108 (90 Base) MCG/ACT Inhalation Aerosol Solution Lala Zhu PA-C Inhale 2 Puffs by mouth every 4 hours as needed for Cough, Shortness of Breath or Wheezing. Associated Diagnoses: Pneumonia of right lower lobe due to infectious organism Ongoing Comment Sarah Glass [facility] 07/06/2014 8:01 AM The patient's medications have been reconciled by a Registered Pharmacist. Signed: Sarah Glass [facility] Date: 07/06/2014 at 8:01 AM The patient's medications have been reconciled by a Registered Pharmacist. Signed: Sarah Glass [facility] Date: 05/30/2014 at 7:57 AM The patient's medications have been reconciled by a Registered Pharmacist. Signed: Sarah Glass [facility] Date: 02/28/2014 at 8:35 AM The patient's medications have been reconciled by a Registered Pharmacist. Signed: Sarah Glass [facility] Date: 10/29/2013 at 7:50 AM Patient cannot verbalize medications they are on at todays visit. States no recent med changes Marybeth Monteiro LPN 05/10/2010 11:38 AM TIPs None Action Plan 1. What type of item is this? Non-medication related Describe the item for the patient takeaway: Low Blood Sugar Describe what the patient should do (for the patient takeaway): When your blood sugar is 70 mg/dl or below, it is important to increase blood sugar immediately. Low blood sugar could lead to comaand even . When you notice your sugar is low, eat a small snack containing sugar. Some examples include: drink a small amount of orange juice (4 ounces), 4 ounces of regular soda or milk, takingglucose tablets (15 grams), or eat 1 tablespoonful of sugar. Wait 15 minutes, and recheck your blood sugar. If your sugar is still low, try to increase it again by eating a small amount of sugar. Recheck your blood sugar in 15 minutes. If after two attempts to raise it, and your blood sugar is still low-call your doctor immediately. 2. What type of item is this? Non-medication related Describe the item for the patient takeaway: Checking Blood Sugar Describe what the patient should do (for the patient takeaway): It is also important to monitoryour blood sugar regularly. Make sure to record your readings in a log and take them with you to your appointments. Providing these readings to your healthcare providers can help them better control your blood sugar. 3. What type of item is this? Non-medication related Describe the item for the patient takeaway: Blood Pressure Check Describe what the patient should do (for the patient takeaway): It is also important to monitoryour blood pressure regularly. Make sure to record your readings in a log and take them with you toyour appointments. Providing these readings to your healthcare providers can help them better control your blood pressure. Takeaway Service Information ? Date CMR was completed: 07/03/2023 ? Who was the recipient of the CMR service: Patient ? Was the patient in a halfway care (LTC) facility when the CMR was completed? No ? Pharmacist's availability for questions: Friday-Friday 8:00am-4:30pm Takeaway Information ? Will the Patient Takeaway be sent to the Patient or someone else? Patient ? Language Template for the Patient Takeaway: Polish ? Additional notes for the Patient Takeaway (optional): n/a I attest that I have reviewed and updated the patient's conditions, allergies, and medications to the best of my ability. Patient Access: Is patient utilizing [facility]Current Order Pharmacy? No; pt not interested at this time Is patient utilizing [facility]? Yes Additional Call Notes Pt appears adherent and denies any issues with medications. Pt mentioned they do not check their blood sugar or blood pressure at home. Discussed with pt about the importance of checking these values at home. Pt mentioned they never feel signs of low blood sugar, reminded pt of the symptoms as well as what to do if he were to feel his blood sugar go low. 30 min CMR. Chely Ding, core checker Thanks, Blanca Benavides PharmD Clinical Pharmacist [facility] ([facility]) (Formerly Telepharmacy) [phone] 07/03/2023, 9:51 AM * Chely Ding, core checker - 07/03/2023 9:28 AM EDT Images from the original note were not included. Unless the attending has added an attestation supporting use of this note to document a billable service, the signature of the Licensed Professional on this note only acknowledges the presence of thestudent's note within the patient record and the Licensed Professional's note should be referred tofor clinical information and recommendations. PHARMACY MTM PROGRESS NOTE [facility] ([facility]) [address] [place] [address] Service Delivery Delivery Method: Phone Outcome: CMR Completed Health Profile Current Conditions: Other (type 2 diabetes mellitus, hyperlipidemia, hypertension, migraine) Drug allergies & side effects: Review of patient's allergies indicates: Allergen Reactions Codealexandr Hivrodri Med List Home Medications Provider Atorvastatin Calcium 80 MG Oral Tablet (Lipitor) Constance Waddell DO Take 1 Tablet (80 mg) by mouth in the morning. Associated Diagnoses: Dyslipidemia, goal LDL below 100 BD Pen Needle Short U/F 31G X 8 MM History Per Patient Associated Diagnoses: -- BD Pen Needle Short U/F 31G X 8 MM (Insulin Pen Needle) Constance Waddell DO USE DIRECTED 3 TIMES DAILY WITH FLEXPEN INSULIN Dx: E11.9 Associated Diagnoses: Type 2 diabetes mellitus with hemoglobin A1c goal of less than 7.0% ([facility]) Blood Glucose Monitoring Suppl (ONETOUCH ULTRA 2) w/Device KIT Constance Waddell DO Test blood sugar twice daily Associated Diagnoses: -- Centrum Silver 50+Men Oral Tablet History Per Patient Associated Diagnoses: -- Desoximetasone 0.05 % External Cream History Per Patient Associated Diagnoses: -- Fenofibrate Micronized 134 MG Oral Capsule Constance Waddell DO TAKE ONE (1) CAPSULE by mouth DAILY BEFORE BREAKFAST Strength: 134 mg Associated Diagnoses: -- FISH OIL 1000 MG PO CAPS Joy Holm MD 2 pills each day Patient taking differently: Take 1 Capsule by mouth. Associated Diagnoses: Mixed dyslipidemia Glucose Blood (ONETOUCH ULTRA BLUE) STRP Betty Hector PA-C Test 2 to 3 times a day dx-E11.9 Associated Diagnoses: DM type 2, not at goal (HCC) Ibuprofen 800 MG Oral Tablet (Motrin) Constance Waddell DO TAKE ONE TABLET BY MOUTH EVERY 8 HOURS NEEDED FOR PAIN Associated Diagnoses: Pain in unspecified limb Levemir FlexTouch 100 UNIT/ML Subcutaneous Solution Pen-injector (Insulin Detemir) Constance Waddell DO Inject 65 Units under the skin daily Patient taking differently: 60 Units. Inject 60 Units under the skin daily Associated Diagnoses: Type 2 diabetes mellitus with hemoglobin A1c goal of less than 7.0% (HCC) Lisinopril 20 MG Oral Tablet (Prinivil) Contsance Waddell DO Take 1 Tablet (20 mg) by mouth in the morning. Associated Diagnoses: -- Meclizine HCl 25 MG Oral Tablet (Antivert) Anneliese Vasquez MD Take 1 Tab by mouth 3 times a day as needed for Dizziness. Associated Diagnoses: -- Notes: This prescription was filled on 12/28/2017. Any refills authorized will be placed on file. Meloxicam 15 MG Oral Tablet Samuel Cancino MD Take 1 Tablet by mouth in the morning. Associated Diagnoses: -- metFORMIN HCl 1000 MG Oral Tablet (Glucophage) Constance Waddell DO Take 1 Tablet (1,000 mg) by mouth 2 times a day with morning and evening meals. Associated Diagnoses: Type 2 diabetes mellitus with target hemoglobin A1c of less than 7.5 percent (HCC) Mupirocin 2 % External Ointment (Bactroban) Constance Waddell DO APPLY TO AFFECTED AREA(S) THREE TIMES DAILY DIRECTED Associated Diagnoses: Skin irritation NovoLOG FlexPen 100 UNIT/ML Subcutaneous Solution Pen-injector (insulin aspart) Constance Waddell DO inject 24 units under the skin with breakfast and 20 units with lunch and 30 units with supper. Associated Diagnoses: Type 2 diabetes mellitus with hemoglobin A1c goal of less than 7.0% ([facility]) Ozempic (1 MG/DOSE) 2 MG/1.5ML Subcutaneous Solution Pen-injector (Semaglutide (1 MG/DOSE)) Constance Waddell, Inject 1 mg under the skin once a week. Associated Diagnoses: -- Ozempic (1 MG/DOSE) 4 MG/3ML Subcutaneous Solution Pen-injector History Per Patient Associated Diagnoses: -- SUMAtriptan Succinate 100 MG Oral Tablet Lala Zhu PA-C TAKE 1 TABLET NEEDED FOR HEADACHE, MAY REPEAT IN 2 HOURS IF NEEDED. MAX 2 TABS IN 24 HOURS Associated Diagnoses: Migraine without aura and without status migrainosus, not intractable Ventolin HFA 108 (90 Base) MCG/ACT Inhalation Aerosol Solution Lala Zhu PA-C Inhale 2 Puffs by mouth every 4 hours as needed for Cough, Shortness of Breath or Wheezing. Associated Diagnoses: Pneumonia of right lower lobe due to infectious organism Ongoing Comment Sarah Glass [facility] 07/06/2014 8:01 AM The patient's medications have been reconciled by a Registered Pharmacist. Signed: Sarah Glass [facility] Date: 07/06/2014 at 8:01 AM The patient's medications have been reconciled by a Registered Pharmacist. Signed: Sarah Glass [facility] Date: 05/30/2014 at 7:57 AM The patient's medications have been reconciled by a Registered Pharmacist. Signed: Sarah Glass [facility] Date: 02/28/2014 at 8:35 AM The patient's medications have been reconciled by a Registered Pharmacist. Signed: Sarah Glass [facility] Date: 10/29/2013 at 7:50 AM Patient cannot verbalize medications they are on at todays visit. States no recent med changes Marybeth Monteiro LPN 05/10/2010 11:38 AM TIPs None Action Plan 1. What type of item is this? Non-medication related Describe the item for the patient takeaway: Low Blood Sugar Describe what the patient should do (for the patient takeaway): When your blood sugar is 70 mg/dl or below, it is important to increase blood sugar immediately. Low blood sugar could lead to comaand even . When you notice your sugar is low, eat a small snack containing sugar. Some examples include: drink a small amount of orange juice (4 ounces), 4 ounces of regular soda or milk, takingglucose tablets (15 grams), or eat 1 tablespoonful of sugar. Wait 15 minutes, and recheck your blood sugar. If your sugar is still low, try to increase it again by eating a small amount of sugar. Recheck your blood sugar in 15 minutes. If after two attempts to raise it, and your blood sugar is still low-call your doctor immediately. 2. What type of item is this? Non-medication related Describe the item for the patient takeaway: Checking Blood Sugar Describe what the patient should do (for the patient takeaway): It is also important to monitoryour blood sugar regularly. Make sure to record your readings in a log and take them with you to your appointments. Providing these readings to your healthcare providers can help them better control your blood sugar. 3. What type of item is this? Non-medication related Describe the item for the patient takeaway: Blood Pressure Check Describe what the patient should do (for the patient takeaway): It is also important to monitoryour blood pressure regularly. Make sure to record your readings in a log and take them with you toyour appointments. Providing these readings to your healthcare providers can help them better control your blood pressure. Takeaway Service Information o Date CMR was completed: 07/03/2023 o Who was the recipient of the CMR service: Patient o Was the patient in a halfway care (LTC) facility when the CMR was completed? No o Pharmacist's availability for questions: Friday-Friday 8:00am-4:30pm Takeaway Information o Will the Patient Takeaway be sent to the Patient or someone else? Patient o Language Template for the Patient Takeaway: Polish o Additional notes for the Patient Takeaway (optional): n/a I attest that I have reviewed and updated the patient's conditions, allergies, and medications to the best of my ability. Patient Access: Is patient utilizing [facility]Current Order Pharmacy? No; pt not interested at this time Is patient utilizing [facility]? Yes Additional Call Notes Pt appears adherent and denies any issues with medications. Pt mentioned they do not check their blood sugar or blood pressure at home. Discussed with pt about the importance of checking these values at home. Pt mentioned they never feel signs of low blood sugar, reminded pt of the symptoms as well as what to do if he were to feel his blood sugar go low. 30 min CMR. KAMALJIT León Clinical Pharmacist [facility] ([facility]) 07/03/2023, 9:29 AM documented in this encounter Plan of Treatment Upcoming Encounters Date Type Specialty Care Team Description 10/03/2023 Office Visit Family Medicine Constance Waddell[address] [place] [phone] 11/06/2023 Appointment Radiology 11/06/2023 Office Visit Urology Clinic, [facility] [place] Resident [address] [facility] [place] [address] Health Maintenance Due Date Last Done Comments [...] as of this encounter Visit Diagnoses Diagnosis Encounter for medication review- Primary Encounter for long-term (current) use of other medications documented in this encounter Care Teams Echocardiography Tech Relationship Specialty Start Date End Date Constance Waddell, [address] [place] [address] PCP - General Internal Medicine 08/25/18 documented as of this encounter
--- OUTSIDE RECORDS SUMMARY | 2023-10-31 14:02 | External Medical Summary | Summary of Care ---
Author Name Unknown Organization [facility] Address [address] [place] [address] Phone [phone] Care Team Providers Care Bindery Machine Operator Name Role Phone WaddellConstance akhtar Primary Care Provider Reason for Visit * Reason Comments Outpatient Testing Encounter Details Date Type Department Care Team (Late st Contact Info) Description 10/03/2023 3:10 PM EDT Laboratory Laboratory [address] [place] [phone] [place] [address] Hyperlipidemia with target LDL less than 70; Essential hypertension with goal blood pressure less than 140/90; Type 2 diabetes mellitus with target hemoglobin A1c of less than 7.5 percent (HCC) Allergies Active Allergy Reactions Criticality Noted Date Comments Becki Rivera 06/20/2000 documented as of this encounter (statuses as of 10/03/2023) Medications Medication Sig Dispensed Refills Start Date End Date Status FISH OIL 1000 MG PO CAPSIndications:Mix ed dyslipidemia 2 pills each day 120 Cap 5 01/28/2014 Active Additional Information Patient taking differently: 1,000 mgOral, Reported on 04/01/2023 Blood Glucose Monitoring Suppl (TherOxUCH ULTRA 2) w/Device KIT Test blood sugar [...] 05/20/2023 Active Ibuprofen 800 MG Oral Tablet (Motrin)Indications [...] the morning. 90 Tablet 3 09/29/2023 Active documented as of this encounter (statuses [...] Spasm of muscle 07/31/2007 03/01/2008 LOC PRIM [id number] 04/23/200603/31 ADVANCE DIRECTIVE INFORMATION 12/18/2005 08/25/2018 Overview: No, Advance Directive brochure given to patient at prior appointment. Other specified glaucoma 09/11/2005 OPEN WOUND OF FINGER 02/07/2005 008 Bunion 05/10/2004 03/01/2008 NEURALGIA-NEURITIS NOS 03/04/200303/01 Dermatitis 03/04/2003 03/01/2008 DM type 2, not at goal 12/28/200209/14 Overview: Modified per Diabetes protocol #14. Mixed dyslipidemia 12/28/2002 9 Overview: Per Lipid Taxonomy. Calculus of ureter 12/28/2002 09/25/201 8 DIAB RENAL MANIF ADULT 12/28/200212/04 BENIGN [...] on file documented as of this encounter Plan of Treatment Upcoming Encounters Date Type Department Care Team (Late st Contact Info) Description 10/13/2023 11:00 AM EST Office Visit Orthopaedics, [place] [address] [place] [phone] Samuel Cancino MD [address] [place] [address] 10/29/2023 10:40 AM EST Office Visit Otolaryngology [facility] [address] [place] [address] Isabelle Combs PA-C [address] [place] [address] 11/06/2023 2:30 PM EST Appointment Radiology, [place] [address] [place] [address] 11/06/2023 3:00 PM EST Office Visit Urology, [place] [address] [place] [address] Alba Chan MD [address] [place] [address] 05/07/2024 8:50 AM EDT Office Visit Family Medicine [address] [place] [phone] Constance Waddell[address] [place] [address] Pending Results Name Type Priority Associated Diagnoses Date /Time COMPREHENSIVE METABOLIC PANEL Lab Routine Hyperlipidemia with target LDL less than 70 Essential hypertension with goal blood pressure less than 140/90 10/03/2023 3:21 PM EDT HEMOGLOBIN A1C Lab Routine Type 2 diabetes mellitus with target hemoglobin A1c of less than 7.5 percent ([facility]) 10/03/2023 3:21 PM EDT ALBUMIN / CREATININE RATIO, URINE Lab Routine Type 2 diabetes mellitus with target hemoglobin A1c of less than 7.5 percent ([facility]) 10/03/2023 3:21 PM EDT CBC WITH WBC DIFFERENTIAL AND ANEMIA REFLEX WORKUP Lab Routine Type 2 diabetes mellitus with target hemoglobin A1c of less than 7.5 percent (HCC) 10/03/2023 3:21 PM EDT ANEMIA CBC Lab Routine Type 2 diabetes mellitus with target hemoglobin A1c of less than 7.5 percent (HCC) 10/03/2023 3:21 PM EDT DIFFERENTIAL, AUTOMATED Lab Routine Type 2 diabetes mellitus with target hemoglobin A1c of less than 7.5 percent (HCC) 10/03/2023 3:21 PM EDT ANEMIA REFLEX CHEMISTRY HOLD Lab Routine Type 2 diabetes mellitus with target hemoglobin A1c of less than 7.5 percent (HCC) 10/03/2023 3:21 PM EDT Health Maintenance Due Date Last Done Comments [...] as of this encounter Visit Diagnoses Diagnosis Hyperlipidemia with target LDL less than 70 Other and unspecified hyperlipidemia Essential hypertension with goal blood pressure less than 140/90 Type 2 diabetes mellitus with target hemoglobin A1c of less than 7.5 percent (HCC) Type II or unspecified type diabetes mellitus without mention of complication, not stated as uncontrolled documented in this encounter Care Teams Bindery Machine Operator Relationship Specialty Start Date End Date Constance Waddell DO [address] [place] [address] [place] [phone] PCP - General Internal Medicine 08/25/18 documented as of this encounter
--- OUTSIDE RECORDS SUMMARY | 2023-10-31 14:02 | External Medical Summary ---
Author Name Unknown Address Unknown Organization K01:LABORATORY [facility] - [address] [place] [id number] Laboratory Report Ordering Provider Test Date Status JERRELL BRUNNER 10/03/2023 15:21:45 Final Observation Date Value Abnormality Reference (Units ) Status WBC, Total 10/03/2023 15:21:45 9.61 4.00-10.8 0 (K/uL) Final RBC 10/03/2023 15:21:45 4.12 4.50-5.25 (M/uL) Final Hemoglobin 10/03/2023 15:21:45 13.1 Below low normal 14 .0-16.8 (g/dL) Final Anemia reflex testing trigge rs on a HGB < 12.0 for Females and HGB < 13.0 for Males in accordance with the WHO Anemia Guidelines
Anemia reflex testing triggers on a HGB < 12.0 for Females and HGB < 13.0 for Males in accordance with the WHO Anemia Guidelines HCT 10/03/2023 15:21:45 39.9 Below low normal 40. 0-48.4 (%) Final MCV 10/03/2023 15:21:45 96.8 82.0-99.5 (fL) Final MCH 10/03/2023 15:21:45 31.8 27.0-34.0 (pg) Final MCHC 10/03/2023 15:21:45 32.8 32.0-36.0 (g/dL) Final RDW 10/03/2023 15:21:45 13.7 11.5-15.5 (%) Final Platelets 10/03/2023 15:21:45 165 140-400 (K /uL) Final MPV 10/03/2023 15:21:45 10.5 6.6-11.1 ( fL) Final Nucleated erythrocytes/100 leukocytes [Ratio] in Blood by Automated count 10/03/2023 15:21:45 0 <=0 (/100 WBCs) Final Performing Location LABORATORY [facility] - [address] [facility] [address]
--- OUTSIDE RECORDS SUMMARY | 2023-10-31 14:02 | External Medical Summary | Summary of Care ---
Author Name Unknown Organization [facility] Address [address] [place] [address] Phone [phone] Care Team Providers Care Crime Data Specialist Name Role Phone Myesha Allan DO Primary Care Provider Reason for Visit * Reason Onset Date Comments Medication Refill 09/29/2023 Encounter Details Date Type Department Care Team (Late st Contact Info) Description 09/29/2023 Refill Family Medicine [address] [place] [phone] Myesha Allan [address] [place] [address] Type 2 diabetes mellitus with target hemoglobin A1c of less than 7.5 percent (HCC); Pain in unspecified limb Allergies Active Allergy Reactions Criticality Noted Date Comments Codeine Hives 06/20/2000 documented as of this encounter (statuses as of 09/29/2023) Medications Medication Sig Dispensed Refills Start Date End Date Status FISH OIL 1000 MG PO CAPSIndications:Mi xed dyslipidemia 2 pills each day 120 Cap 5 01/28/2014 Active Additional Information Patient taking differently: 1,000 mgOral, Reported on 04/01/2023 Blood Glucose Monitoring Suppl (SnoopWallUCH ULTRA 2) w/Device KIT Test blood sugar [...] the morning. 90 Tablet 3 09/29/2023 Active Lisinopril 20 MG Oral Tablet (Prinivil) Take 1 Tablet (20 mg) by mouth in the morning. 90 Tablet 3 10/08/2022 3 Discontinue d(Refill) metFORMIN HCl 1000 MG Oral Tablet (Glucophage)Indica tions:Type 2 diabetes mellitus with target hemoglobin A1c of less than 7.5 percent (HCC) Take 1 Tablet (1,000 mg) by mouth 2 times a day with morning and evening meals. 180 Tablet 3 10/29/2022 3 Discontinue d(Refill) documented as of this encounter (statuses as of 09/29/2023) Active Problems Problem Noted Date Diagnosed Date Controlled type 2 diabetes m dhaval with [...] as of this encounter (statuses as of 09/29/2023) Resolved Problems Problem Noted Date Diagnosed Date Resolved Date Diabetes mellitus type II, controlled 09/30/2022 02/13/2023 Primary open-angle glaucoma, bilateral, mild stage 03/29/2022 09/30/2022 Mild nonproliferative diabet ic retinopathy [...] Spasm of muscle 07/31/2007 03/01/2008 LOC PRIM [id number] 04/23/200603/31 ADVANCE DIRECTIVE INFORMATION 12/18/2005 08/25/2018 Overview: [...] as of this encounter (statuses as of 09/29/2023) Immunizations Name Administration Dates Next Due COVID-19 [...] encounter Miscellaneous Notes * Telephone Encounter - Myesha Allan DO [...] D FOR PAIN * Telephone Encounter - Flower Ellisoneduardo Justin - 09/29/2023 12:03 PM EDT Did you pend patient's preferred pharmacy and medication before forwarding?yes Pharmacy: [facility], [address] [place] Pending Prescriptions: Disp Refills [...] Team (Late st Contact Info) Description 10/03/2023 2:30 PM EDT Office Visit Family Medicine [address] [place] [phone] [place] [address] 10/13/2023 11:00 AM EST Office Visit Orthopaedics, [address] [phone] Samuel Cancino MD [address] [place] [address] 10/29/2023 10:40 AM EST Office Visit Otolaryngology [facility] [address] [facility] [place] [address] Isabelle Combs PA-C [address] [place] [address] 11/06/2023 2:30 PM EST Appointment Radiology, [place] [address] [place] [phone] 11/06/2023 3:00 PM EST Office Visit Urology, [place] [address] [facility] [place] [address] Alba Chan MD [address] [place] [facility] [place] [address] Health Maintenance Due Date Last Done Comments Sigmoidoscopy 1998 Zoster Vaccines (1 of 2) 2003 Hepatitis B (1 of 3 - Risk 3-dose series) 2013 Colonoscopy 12/24/2015 12/24/2005 Depression Screening 05/29/2021 05/29/2020 Cologuard 09/13/2021 09/13/2018, 09/07/2018 Diabetic Eye Exam 03/07/2023 03/07/2022, , 03/03/2017, Additional history exists [...] limb documented in this encounter Care Teams Crime Data Specialist Relationship Specialty Start Date End Date Myesha Allan DO [address] [place] [address] [place] [address] PCP - General Internal Medicine 08/25/18 documented as of this encounter
--- OUTSIDE RECORDS SUMMARY | 2023-10-31 14:02 | External Medical Summary ---
Author Name Unknown Address Unknown Organization K01:[facility] - [address] [place] [address] Laboratory Report Ordering Provider Test Date Status JERRELL BRUNNER 10/03/2023 15:21:45 Final Observation Date Value Abnormality Reference (Units ) Status Pathologist review of results 10/03/2023 15:21:45 Lymphocytosis, reactive. Final Performing Location LABORATORY [facility] - [address] [place] [address]
--- OUTSIDE RECORDS SUMMARY | 2023-10-31 14:02 | External Medical Summary | Summary of Care ---
Author Name Unknown Organization [facility] Address [address] [place] [address] Phone [phone] Care Team Providers Care Butadiene Converter Operator Name Role Phone Constance Waddell DO Primary Care Provider [phone] Encounter Details Date Type Department Care Team Description 07/30/2023 Office Visit Audiology [facility] [address] [place] [address] Jaimie Churchill AuPilar [address] [place] [address] Asymmetrical sensorineural hearing loss* Allergies Active Allergy Reactions Severity Noted Date [...] Spasm of muscle 07/31/2007 03/01/2008 LOC PRIM [id number] 04/23/2006 04/12/20 08 ADVANCE DIRECTIVE INFORMATION 12/18/2005 [...] as of this encounter Progress Notes * Norm Loyola - 07/30/2023 9:21 AM EDT Images from the original note were not included. Audiologic evaluation was completed on referral from Otolaryngology clinic. Tympanometry [address]26[address] Right: WNL for static admittance, tympanometric peak pressure, equivalent volume, and tympanic width("Type A") Left: WNL for static admittance, tympanometric peak pressure, equivalent volume, and tympanic width("Type A") Standard audiometric testing 92117 ABSD insert earphones Good reliability Right: Mild sensorineural hearing loss Left: mild to moderately severe sensorineural hearing loss Speech recognition thresholds were consistent with hearing thresholds. Word recognition scores, obtained via monitored live voice were: right 92%, left 88% Norm Avendano, [facility] 07/30/2023 9:22 AM Scan: audiogram, tympanograms documented in this encounter Plan of Treatment Upcoming Encounters Date Type Specialty Care Team Description 10/03/2023 Office Visit Family Medicine Constance Waddell[address] [place] [address] 10/29/2023 Office Visit Otolaryngology Isabelle Combs PA-C [address] [place] [address] 11/06/2023 Appointment Radiology 11/06/2023 Office Visit Urology Clinic, U[place] Resident [address] [place] [facility] [place] [address] Health Maintenance Due Date Last Done Comments [...] Not on filedocumented as of this encounter Procedures Procedure Name Priority Date/Time Associated Diagnosis Comments AUDIOMETRIC RESULT 07/30/2023 documented in this encounter Results * AUDIOMETRIC RESULT (07/30/2023) 07/30/2023 [facility] documented in this encounter Visit Diagnoses Diagnosis Asymmetrical sensorineural hearing loss- Primary Sensorineural hearing loss, asymmetrical documented in this encounter Care Teams Butadiene Converter Operator Relationship Specialty Start Date End Date Constance Waddell[address] [place] [address] PCP - General Internal Medicine 08/25/18 documented as of this encounter
--- OUTSIDE RECORDS SUMMARY | 2023-10-31 14:02 | External Medical Summary | Summary of Care ---
Author Name Unknown Organization [facility] Address [address] [place] [address] Phone [phone] Care Team Providers Care Boom Master Name Role Phone Constance Waddell DO Primary Care Provider [phone] Reason for Visit * Reason Onset Date Comments Med Request 06/23/2023 Encounter Details Date Type Department Care Team Description 06/23/2023 Telephone Podiatry, [facility] [address] [place] [address] Michelle Salmeron DPM [address] [place] [address] Med Request Allergies Active Allergy Reactions Severity Noted Date Comments Codeine Hives 06/20/2000 documented as of this encounter (statuses as of 06/24/2023) Medications Medication Sig Dispensed Refills Start Date End Date Status FISH OIL 1000 MG PO CAPSIndications:Mix ed dyslipidemia 2 pills each day 120 Cap 5 01/28/2014 Active Additional Information Patient taking differently: 1,000 mgOral, Reported on 04/01/2023 Blood Glucose Monitoring Suppl (Mformation TechnologiesTOUCH ULTRA 2) w/Device KIT Test blood sugar [...] AREA TWICE A DAY 0 03/08/2023 Active Ozempic (1 MG/DOSE) 4 MG/3ML Subcutaneous Solution Pen-injector Inject 1 mg under the skin once a week. 0 03/21/2023 Active Mupirocin 2 % External Ointment (Bactroban)Indicati [...] as of this encounter (statuses as of 06/24/2023) Active Problems Problem Noted Date Controlled type [...] as of this encounter (statuses as of 06/24/2023) Resolved Problems Problem Noted Date Resolved Date [...] Spasm of muscle 07/31/2007 03/01/2008 LOC PRIM [id number] 04/23/2006 04/12/20 08 ADVANCE DIRECTIVE INFORMATION 12/18/2005 [...] as of this encounter (statuses as of 06/24/2023) Immunizations Name Administration Dates Next Due COVID-19 [...] encounter Miscellaneous Notes * Telephone Encounter - KAMALJIT Huang - 06/23/2023 10:23 AM EDT Pt is calling back and does want the cream A 6 Please let pt know how he will receive the medication Phone number [phone] Thank you for your assistance Monica Luna Nuclear Worker Technician II [facility] ([facility] (Formerly [facility]) 06/23/2023,10:25 AM documented in this encounter Plan of Treatment Upcoming Encounters Date Type Specialty Care Team Description 10/03/2023 Office Visit Family Medicine Constance Waddell[address] [place] [phone] 11/06/2023 Appointment Radiology 11/06/2023 Office Visit Urology Clinic, U[facility] [place] Resident [address] [facility] [place] [phone] Health Maintenance Due Date Last Done Comments [...] shot) (#1) 2023 08/29/2020 GFR 09/30/2023 09/30/2022, 04/2 08/2022, 09/27/2021, Additional history exists Albumin/Creatinine Ratio 10/01/2023 [...] filedocumented as of this encounter Care Teams Boom Master Relationship Specialty Start Date End Date Constance Waddell, [address] [place] [address] PCP - General Internal Medicine 08/25/18 documented as of this encounter
--- OUTSIDE RECORDS SUMMARY | 2023-10-31 14:02 | External Medical Summary ---
Author Name Unknown Address Unknown Organization K01:[facility] [place] [address] [place] [address] Laboratory Report Ordering Provider Test Date Status JERRELL BRUNNER 10/03/2023 15:21:45 Final Normal: <30 mg/g creatinine< br/>High: 30-300 mg/g creatinine
Very High: >300 mg/g creatinine
Nephrotic: >2200 mg/g creatinine Observation Date Value Abnormality Reference (Units ) Status Albumin, Urine 10/03/2023 15:21:45 8.72 (mg/dL) Final Creatinine, Urine 10/03/2023 15:21:45 153 (mg/dL) Final Albumin/Creatinine [Mass Ratio] in Urine 10/03/2023 15:21:45 57 Above high normal <30 (mg/g Creat) Final Performing Location [facility] [address] [place] [address]
--- OUTSIDE RECORDS SUMMARY | 2023-10-31 14:02 | External Medical Summary | Summary of Care ---
Author Name Unknown Organization [facility] Address [address] [place] [address] Phone [phone] Care Team Providers Care Torque Tester Name Role Phone Constance Waddell DO Primary Care Provider Encounter Details Date Type Department Care Team (Late st Contact Info) Description 10/01/2023 Orders Only Family Medicine [address] [place] [phone] Constance [address]addell [address] [address] Allergies Active Allergy Reactions Criticality Noted Date Comments Codeine Hives 06/20/2000 documented as of this encounter (statuses as of 10/01/2023) Medications Medication Sig Dispensed Refills Start Date [...] as of this encounter (statuses as of 10/01/2023) Active Problems Problem Noted Date Diagnosed Date Controlled type 2 diabetes m ellitus [...] as of this encounter (statuses as of 10/01/2023) Resolved Problems Problem Noted Date Diagnosed Date [...] Spasm of muscle 07/31/2007 03/01/2008 LOC PRIM [id number] 04/23/200603/31 ADVANCE DIRECTIVE INFORMATION 12/18/2005 08/25/2018 Overview: [...] as of this encounter (statuses as of 10/01/2023) Immunizations Name Administration Dates Next Due COVID-19 [...] 2:30 PM EDT Office Visit Family Medicine [address] [phone] Constance Waddell, [address] [place] [address] 10/13/2023 11:00 AM EST Office Visit Orthopaedics, [address] [place] [phone] Samuel Cancino MD [address] [facility] [place] [address] 10/29/2023 10:40 AM EST Office Visit Otolaryngology [facility] [address] [place] [address] Isabelle Combs PA-C [address] [place] [address] 11/06/2023 2:30 PM EST Appointment Radiology, [place] [address] [place] [address] 11/06/2023 3:00 PM EST Office Visit Urology, [place] [address] [place] [address] Alba Chan MD [address] [place], [place] [phone] Health Maintenance Due Date Last Done Comments [...] Procedure Name Priority Date/Time Associated Diagnosis Comments DIABETIC EYE EXAM Routine 09/29/2023 documented in this encounter Results * DIABETIC EYE EXAM (09/29/2023) 09/29/2023 History Per Patient OTHER OUTSIDE LAB (SEE SCANNED REPORT) documented in this encounter Care Teams Torque Tester Relationship Specialty Start Date End Date Constance Waddell DO [address] [place] [address] [place] [address] PCP - General Internal Medicine 08/25/18 documented as of this encounter
--- OUTSIDE RECORDS SUMMARY | 2023-10-31 14:03 | External Medical Summary | Summary of Care ---
Author Name Unknown Organization [facility] Address [address] [place] [address] Phone [phone] Care Team Providers Care Crystal Finisher Name Role Phone Constance Waddell DO Primary Care Provider Reason for Visit * Reason Onset Date Comments Med Request 06/23/2023 Encounter Details Date Type Department Care Team Description 06/23/2023 Telephone Podiatry [facility] [address] [place] [address] Michelle Salmeron, VIRA [address] [place] [address] Med Request Allergies Active Allergy Reactions Severity Noted Date Comments Codeine Hives 06/20/2000 documented as of this encounter (statuses as of 06/23/2023) Medications Medication Sig Dispensed Refills Start Date [...] as of this encounter (statuses as of 06/23/2023) Active Problems Problem Noted Date Controlled type [...] as of this encounter (statuses as of 06/23/2023) Resolved Problems Problem Noted Date Resolved Date [...] Spasm of muscle 07/31/2007 03/01/2008 LOC PRIM [id number] 04/23/2006 04/12/20 08 ADVANCE DIRECTIVE INFORMATION 12/18/2005 [...] as of this encounter (statuses as of 06/23/2023) Immunizations Name Administration Dates Next Due COVID-19 [...] encounter Miscellaneous Notes * Telephone Encounter - JONNA Garcia - 06/23/2023 12:49 PM EDT Pt LVM requesting Dr. Salmeron go ahead and place the order for topical compound Rx creams ([id number]) as discussed. documented in this encounter Plan of Treatment Upcoming Encounters Date Type Specialty Care Team Description 10/03/2023 Office Visit Family Medicine Constance Waddell[address] [place] [phone] 11/06/2023 Appointment Radiology 11/06/2023 Office Visit Urology Clinic, Urology [place] Resident [address] [facility] [place] [address] Health Maintenance Due Date Last Done Comments [...] filedocumented as of this encounter Care Teams Crystal Finisher Relationship Specialty Start Date End Date Constance Waddell[address] [place] [address] PCP - General Internal Medicine 08/25/18 documented as of this encounter
--- OUTSIDE RECORDS SUMMARY | 2023-10-31 14:03 | External Medical Summary | Summary of Care ---
Author Name Unknown Organization [facility] Address [address] [place] [address] Phone [phone] Care Team Providers Care Typing Bookkeeper Name Role Phone Constance Waddell DO Primary Care Provider [phone] Encounter Details Date Type Department Care Team Description 06/19/2023 Patient Reported Data Patient Survey Ortho [facility] Allergies Active Allergy Reactions Severity Noted Date Comments Codeine Hives 06/20/2000 documented as of this encounter (statuses as of 06/19/2023) Medications Medication Sig Dispensed Refills Start Date [...] as of this encounter (statuses as of 06/19/2023) Active Problems Problem Noted Date Controlled type [...] as of this encounter (statuses as of 06/19/2023) Resolved Problems Problem Noted Date Resolved Date [...] Spasm of muscle 07/31/2007 03/01/2008 LOC PRIM [id number] 04/23/2006 04/12/20 08 ADVANCE DIRECTIVE INFORMATION 12/18/2005 [...] as of this encounter (statuses as of 06/19/2023) Immunizations Name Administration Dates Next Due COVID-19 [...] Encounters Date Type Specialty Care Team Description 06/20/2023 Office Visit Podiatry Michelle Salmeron, DPJose [address] [place] [phone] 10/03/2023 Office Visit Family Medicine Constance Waddell[address] [place] [address] 11/06/2023 Appointment Radiology 11/06/2023 Office Visit Urology Clinic, Urology [place] Resident [address] [facility] [place] [address] Health Maintenance Due Date Last Done Comments [...] filedocumented as of this encounter Care Teams Typing Bookkeeper Relationship Specialty Start Date End Date Constance Waddell, [address] [place] [address] PCP - General Internal Medicine 08/25/18 documented as of this encounter
--- OUTSIDE RECORDS SUMMARY | 2023-10-31 14:03 | External Medical Summary | Summary of Care ---
Author Name Unknown Organization [facility] Address [address] [place] [address] Phone [phone] Care Team Providers Care Night Order Selector Name Role Phone Constance Waddell Primary Care Provider Reason for Visit * Reason Comments New Problem L foot Encounter Details Date Type Department Care Team Description 06/20/2023 Office Visit Podiatry [facility] [address] [facility] [place] [address] Michelle Salmeron, VIRA [address] [place] [address] Left foot pain*; Neuropathy of both feet; Type 2 diabetes mellitus with target hemoglobin A1c of less than 7.5 percent (HCC); Porokeratosis Allergies Active Allergy Reactions Severity Noted Date Comments Codeine Hives 06/20/2000 documented as of this encounter (statuses as of 06/20/2023) Medications Medication Sig Dispensed Refills Start Date End Date Status FISH OIL 1000 MG PO CAPSIndications:Mix ed dyslipidemia 2 pills each day 120 Cap 5 01/28/2014 Active Additional Information Patient taking differently: 1,000 mgOral, Reported on 04/01/2023 Blood Glucose Monitoring Suppl (RemicalmUCH ULTRA 2) w/Device KIT Test blood sugar [...] as of this encounter (statuses as of 06/20/2023) Active Problems Problem Noted Date Controlled type [...] as of this encounter (statuses as of 06/20/2023) Resolved Problems Problem Noted Date Resolved Date [...] Spasm of muscle 07/31/2007 03/01/2008 LOC PRIM [id number] 04/23/2006 04/12/20 08 ADVANCE DIRECTIVE INFORMATION 12/18/2005 [...] as of this encounter (statuses as of 06/20/2023) Immunizations Name Administration Dates Next Due COVID-19 [...] as of this encounter Progress Notes * Michelle Salmeron, SUBHAM - 06/20/2023 1:44 PM EDT Podiatry Established Note [facility] Name: Levy Ellis : 1955 Date: 06/20/2023 REASON FOR VISIT: new issue - left foot pain for several months, also feels neuropathy type symptoms are worse SUBJECTIVE: This patient is a 68 year old male who presents today with complaints of left foot painfor the past 3-4 months. Pain is located near the 5th metatarsal head. It often hurts with walking.He also complaints of persistent tingling pains to the toes which extends to the midfoot. He notices this when going to bed and when waking. He did obtain diabetic inserts without much change. He didhave EMGs which we reviewed at a separate encounter which were suggestive of neuropathy. He had declined aggressive options in the past. Past Medical History: Diagnosis Date Acute prostatitis [...] goal A1c below 7 07/06/93 Admitted to [facility] with sugar of 390, started on insulin DM type 2, not at goal ([facility]) 1992 Encounter for ophthalmic examination and evaluation 01/14/02 Dr. Moura Essential hypertension with goal blood pressure less than 140/90 09/02/2016 Fatty liver 01/16/2017 Ganglion 08/11/[address] Smart at [facility] Hammer toe, acquired 01/28/2014 Hip pain, right [...] hernia 08/23/[address] Smyth at [facility] 09/05/88 ALLERGIES: Review of patient's allergies indicates: Allergen Reactions Codeine Hives REVIEW OF SYSTEMS: CONSTITUTIONAL: No fevers, sweats, or chills FOCUSED PODIATRIC EXAM: Vascular: Pedal pulses palpable including dorsalis pedis and posterior tibial artery at 2/4 left. Capillary refill time is within normal limits to all toes. No edema noted. No warmth. Neurologic: Sensation (light touch) intact to the left foot. No hypersensitivity. Musculoskeletal: Pain is reported with palpation of the left foot, plantar aspect of the 5th metatarsal head at skinlesion. Dermatological: Hyperkeratotic lesion with central deep core left plantar foot 5th metatarsal head. DIAGNOSTIC STUDIES: 3 WB radiographs of the left foot were obtained today. This includes AP MO and Lateral. No significant soft tissue findings. Prominent soft tissue outline around 5th metatarsal head on AP view. ASSESSMENT: 1. Left foot pain 2. Neuropathy of both feet 3. Type 2 diabetes mellitus with target hemoglobin A1c of less than 7.5 percent ([facility]) 4. Porokeratosis PLAN: I personally reviewed left foot x-rays as above. I discussed possibility of bursitis, however, on clinical exam it seems his pain correlates to the skin lesion. As a courtesy to him, I did pare this lesion with a sterile #15 blade without incident. If symptoms persist after a few days, he is to contact me. We also reviewed neuropathy. Discussed option of oral medications which he prefers to avoid. I provided him information on topical compound Rx creams (transdermal 6A). He plans on researching this and will get back to be if he would like to try it. Follow up: as needed Michelle Salmeron DPM documented in this encounter Nursing Notes * Johanna Almeida LPN - 06/20/2023 1:42 PM EDT Pt presents for new concern, increasing pain on lateral side L foot x 3-4 months, painful to walk. Is tender to the touch. Also notices tingling in the fronts of bilateral feet. States soreness and pain in feet is present all the time now. documented in this encounter Plan of Treatment Upcoming Encounters Date Type Specialty Care Team Description 10/03/2023 Office Visit Family Medicine Constance Waddell[address] [place] [phone] 11/06/2023 Appointment Radiology 11/06/2023 Office Visit Urology Clinic, [facility] [place] Resident [address] [place], [place] [id number] Pending Results Name Type Priority Associated Diagnoses Date /Time XR FOOT 3 OR MORE VIEWS Medical Imaging Routine Left foot pain 06/20/2023 1:58 PM EDT Health Maintenance Due Date Last [...] as of this encounter Visit Diagnoses Diagnosis Left foot pain- Primary Pain in limb Neuropathy of both feet Mononeuritis of lower limb, unspecified Type 2 diabetes mellitus with target hemoglobin A1c of less than 7.5 percent (HCC) Type II or unspecified type diabetes mellitus without mention of complication, not stated as uncontrolled Porokeratosis Other specified congenital anomaly of skin documented in this encounter Care Teams Night Order Selector Relationship Specialty Start Date End Date Constance Waddell, [address] [place] [address] PCP - General Internal Medicine 9/25/18 documented as of this encounter
--- OUTSIDE RECORDS SUMMARY | 2023-10-31 14:03 | External Medical Summary | Summary of Care ---
Author Name Unknown Organization [facility] Address [address] [place] [address] Phone [phone] Care Team Providers Care Emissions Repair Technician Name Role Phone Constance Waddell DO Primary Care Provider [phone] Encounter Details Date Type Department Care Team [...] Spasm of muscle 07/31/2007 03/01/2008 LOC PRIM [id number] 04/23/2006 04/12/20 08 ADVANCE DIRECTIVE INFORMATION 12/18/2005 [...] Office Visit Podiatry Michelle Salmeron, DPJose [address] [place] [phone] 10/03/2023 Office Visit Family Medicine Constance Waddell[address] [place] [address] 11/06/2023 Appointment Radiology 11/06/2023 Office Visit Urology Clinic, [facility] [place] [facility] [address] [facility] [place] [address] Health Maintenance Due Date Last Done Comments [...] filedocumented as of this encounter Care Teams Emissions Repair Technician Relationship Specialty Start Date End Date Constance Waddell, [address] [place] [address] PCP - General Internal Medicine 08/25/18 documented as of this encounter
--- OUTSIDE RECORDS SUMMARY | 2023-10-31 14:03 | External Medical Summary | Summary of Care ---
Author Name Unknown Organization [facility] Address [address] [place] [address] Phone [phone] Care Team Providers Care Assembler Garment Form Name Role Phone Constance Waddell DO Primary [...] Spasm of muscle 07/31/2007 03/01/2008 LOC PRIM [id number] 04/23/2006 04/12/20 08 ADVANCE DIRECTIVE INFORMATION 12/18/2005 [...] Office Visit Podiatry Michelle Salmeron, DPJose [address] [place] [id number] 10/03/2023 Office Visit Family Medicine Constance Waddell[address] [place] [address] 11/06/2023 Appointment Radiology 11/06/2023 Office Visit Urology Clinic, U[facility] [place] Res[facility] [address] [facility] [place] [address] Health Maintenance Due Date Last Done Comments [...] filedocumented as of this encounter Care Teams Assembler Garment Form Relationship Specialty Start Date End Date Constance Waddell, [address] [place] [address] PCP - General Internal Medicine 08/25/18 documented as of this encounter
--- OUTSIDE RECORDS SUMMARY | 2023-10-31 14:03 | External Medical Summary | Summary of Care ---
Author Name Unknown Organization [facility] Address [address] [facility] [place] [address] Care Team Providers Care Maintenance Pipefitter Name Role Phone Constance Waddell DO Primary Care Provider [phone] Reason for Visit * Reason Comments NEW PATIENT Right hip & knee demetrius n Encounter Details Date Type Department Care Team Description 05/19/2023 Office Visit Orthopaedics [facility] [address] [facility] [address] [facility] [address] [place] [phone] Samuel Cancino MD [address] [facility] [address] [place] [address] Primary osteoarthritis of right knee*; Hip pain, right; Chronic pain of right knee; Primary osteoarthritis of right hip Allergies Active Allergy Reactions Severity Noted Date Comments Codeine Hives 06/20/2000 documented as of this encounter (statuses as of 05/19/2023) Medications Medication Sig Dispensed Refills Start Date End Date Status FISH OIL 1000 MG PO CAPSIndications:Mix ed dyslipidemia 2 pills each day 120 Cap 5 01/28/2014 Active Additional Information Patient taking differently: 1,000 mgOral, Reported on 04/01/2023 Blood Glucose Monitoring Suppl (Spire SensiboUCH ULTRA 2) w/Device KIT Test blood sugar twice daily 1 Kit 0 06/19/2020 Active Glucose Blood (ONETOUCH ULTRA BLUE) STRPIndications:DM type 2, not at goal (HCC) Test 2 to 3 times a day dx-E11.9 100 Strip 5 06/28/2020 Active Mupirocin 2 % External Ointment (Bactroban)Indicati ons:Skin irritation APPLY TO AFFECTED AREA(S) THREE TIMES DAILY DIRECTED 22 g 1 12/20/2020 Active Additional Information Patient taking differently:, APPLY TO AFFECTED AREA(S) THREE TIMES DAILY DIRECTED,Indications: garcia, Reported on 04/01/2023 Meclizine HCl 25 MG Oral Tablet (Antivert) Take 1 Tab by mouth 3 times a day as needed for Dizziness. 30 Tab 1 01/01/2021 Active Centrum Silver 50+Men Oral Tablet Take by mouth . 0 A ctive Ibuprofen 800 MG Oral Tablet (Motrin)Indications :Pain in unspecified limb TAKE ONE TABLET BY MOUTH EVERY 8 HOURS NEEDED FOR PAIN 90 Tablet 1 10/04/2022 Active Lisinopril 20 MG Oral Tablet (Prinivil) [...] hemoglobin A1c goal of less than 7.0% ([facility]) inject 24 units under the skin [...] skin once a week. 0 03/21/2023 Active Meloxicam 15 MG Oral Tablet Take 1 Tablet by mouth in the morning. 30 Tablet 5 05/19/2023 Active Hospital, Clinic, or Other Facility Administered Medication Ordered Dose Route Frequency Start Date End Date Status Dexamethasone Sodium Phosphate (Decadron) 4 MG/ML inj 8 mgIndications:Primary osteoarthritis of right knee 8 mg IX ONCE 05/19/2023 05/19/2023 Ended lidocaine 1 % inj 80 mgIndications:Primary osteoarthritis of right knee 80 mg IX ONCE 05/19/2023 05/19/2023 Ended documented as of this encounter (statuses as of 05/19/2023) Active Problems Problem Noted Date Controlled type [...] as of this encounter (statuses as of 05/19/2023) Resolved Problems Problem Noted Date Resolved Date [...] Spasm of muscle 07/31/2007 03/01/2008 LOC PRIM [id number] 04/23/2006 04/12/20 08 ADVANCE DIRECTIVE INFORMATION 12/18/2005 [...] as of this encounter (statuses as of 05/19/2023) Immunizations Name Administration Dates Next Due COVID-19 mRNA, LNP-s, No Pre serve, 2-Dose Series (Moderna) 02/06/2021,01/09/2021 Covid-19 Mrna, Lnp-s, No Preserve, Booster (Mode rna) 11/06/2021 Pneumococcal Conjugate Vacc, 13 Valent (Prevnar) 02/23/2019 Pneumococcal Conjugate Vaccine, 20-valent (Prevn ar20) 04/01/2023 Pneumococcal Polysaccharide PPV23 (Pneumovax) Seasonal Influenza, Quadriva lent, No Preserve, Adjuvanted, 65+ Yrs, IM 08/29/2020 TD - Tetanus/Diptheria (ADULT) 06/25/2001 TDAP [...] as of this encounter Progress Notes * Samuel Cancino MD - 05/19/2023 2:08 PM EDT 68-year-old male here for evaluation of right hip and right knee pain. He had a left hip replacement in 2018 and has done very well with that. Knee is bothering him the most at the current time. 1. AP pelvis lateral radiographs of the right hip were taken today and reviewed. He does have moderately severe degenerative changes in the right hip. He has a well-positioned well aligned left totalhip replacement with no periprosthetic complications. Right hip exam: Decreased range of motion of hip. There is pain in the groin with flexion and internal rotation. No swelling, warmth or erythema. No inguinal adenopathy. No pain at the SI joint. Negative straight leg raise. Normal distal motor and sensory exam. Impression: Right hip DJD Recommendations: I discussed treatment options with the patient. We discussed cane use, activity modifications, therapy, oral anti-inflammatory medications, intra-articular hip injections, and hip replacement surgery. We are going to start him on meloxicam 15 mg daily. Prescription was sent in. We will have him discontinue the [id number] ibuprofen. Appropriate warnings were given. Follow-upas needed. 2. Weightbearing x-rays of the right knee were taken today and reviewed. He has severe medial compartment degenerative changes. He has [id number]. He has flattening of the medial femoral condyle and periarticular osteophyte formation. Moderate patellofemoral degenerative changes are noted. Exam: There is a fixed varus deformity to the knee. Knee is tender to palpation at the medial jointline. There is some medial joint and patellofemoral crepitus. No lateral joint line symptoms. Negative Clive. Negative anterior and posterior drawer testing. No varus or valgus instability. No effusion or synovial thickening. Impression: DJD right knee Recommendations: We discussed treatment options. With the patient's understanding and permission, and utilizing aseptic technique, the right knee was injected through an anterior approach utilizing 8mg dexamethasone and 8 cc of lidocaine. Prior to this, the knee had been prepped with an alcohol wash. A sterile bandage was applied. Patient tolerated the procedure well. The patient was instructed on icing and activity modification. Follow-up as needed. documented in this encounter Nursing Notes * JANIE Giordano - 05/19/2023 1:22 PM EDT Presents for eval of right hip and right knee pain, he was told in the past that the sx are all coming from the hip. He c/o grinding and clicking in the knee and pain gets so bad the linger he is on it that he can barely walk. He does not have pain in his hip He takes Ibuprofen LTHA 04/29/2018 documented in this encounter Plan of Treatment Upcoming Encounters Date Type Specialty Care Team Description 10/03/2023 Office Visit Family Medicine Constance Waddell[address] [place] [address] 11/06/2023 Appointment Radiology 11/06/2023 Office Visit Urology Clinic, U[facility] [place] Resident [address] [facility] [place] [address] Pending Results Name Type Priority Associated Diagnoses Date /Time XR HIP 1 VIEW INCLUDING AP PELVIS Medical Imaging Routine Hip pain, right 05/19/2023 1:34 PM EDT XR KNEE 1-2 VIEWS Medical Imaging Routine Chronic pain of right knee 05/19/2023 1:36 PM EDT Health Maintenance Due Date Last [...] Test 07/29/2023 07/29/2022 Influenza Vaccine (FLU shot) (Season Ended) 2023 08/29/2020 GFR 09/30/2023 09/30/2022, 03/02, 09/27/2021, Additional history exists Albumin/Creatinine Ratio 10/01/2023 022, 09/27/2021, 08/30/2020, Additional history exists HbA1c 10/02/2023 04/01/2023, 09/02, 03/29/2022, Additional history exists DIABETES-FOOT EXAM 04/01/2024 04/01/2023, 1 , 08/29/2020, Additional history exists Yearly B-12 04/01/2024 04/01/2023, 03/02, 02/28/2021, Additional history exists Lipid Panel 04/01/2028 04/01/2023, [...] knee- Primary Primary localized osteoarthrosis, lower leg Hip pain, right Pain in joint, pelvic region and thigh Chronic pain of right knee Primary osteoarthritis of right hip Primary localized osteoarthrosis, pelvic region and thigh documented in this encounter Administered Medications Inactive Administered Medications - up to 3 most recent administrations Medication Order MAR Action Action Date Dose Rate Site Dexamethasone Sodium Phosphate (Decadron) 4 MG/ML inj 8 mg 8 mg, Intra-Articular, ONCE, On Fri05/19/23 at 1500, For 1 dose Given 05/19/2023 2:28 PM EDT 8 mg lidocaine 1 % inj 80 mg 80 mg (8 mL), Intra-Articular, ONCE, On Fri05/19/23 at 1500, For 1 dose Given 05/19/2023 2:28 PM EDT 80 mg documented in this encounter Care Teams Maintenance Pipefitter Relationship Specialty Start Date End Date Constance Waddell, [address] [place] [address] PCP - General Internal Medicine 08/25/18 documented as of this encounter
--- OUTSIDE RECORDS SUMMARY | 2023-10-31 14:03 | External Medical Summary | Summary of Care ---
Author Name Unknown Organization [facility] Address [address] [place] [address] Phone [phone] Care Team Providers Care Interactive Media Designer Name Role Phone Myesha Allan DO Primary Care Provider Reason for Visit * Reason Onset Date Comments Medication Refill 05/19/2023 Encounter Details Date Type Department Care Team Description 05/19/2023 Refill Family Medicine [address] [place] [phone] [address]esha Allan [address] [address] Skin irritation Allergies Active Allergy Reactions Severity Noted Date Comments Codeine Hives 06/20/2000 documented as of this encounter (statuses as of 05/21/2023) Medications Medication Sig Dispensed Refills Start Date [...] A ctive Ibuprofen 800 MG Oral Tablet (Motrin)Indication s:Pain [...] 03/21/2023 Active Mupirocin 2 % External Ointment (Bactroban)Indicat ions:Skin irritation APPLY TO AFFECTED AREA(S) THREE TIMES DAILY DIRECTED 22 g 1 05/20/2023 Active Mupirocin 2 % External Ointment (Bactroban)Indicat ions:Skin irritation APPLY TO AFFECTED AREA(S) THREE TIMES DAILY DIRECTED 22 g 1 12/20/2020 3 Discontinue d(Refill) documented as of this encounter (statuses as of 05/21/2023) Active Problems Problem Noted Date Controlled type [...] as of this encounter (statuses as of 05/21/2023) Resolved Problems Problem Noted Date Resolved Date [...] Spasm of muscle 07/31/2007 03/01/2008 LOC PRIM [id number] 04/23/2006 04/12/20 08 ADVANCE DIRECTIVE INFORMATION 12/18/2005 [...] as of this encounter (statuses as of 05/21/2023) Immunizations Name Administration Dates Next Due COVID-19 [...] Telephone Encounter - Myesha Allan DO - 05/20/2023 8:49 AM EDTSigned Prescriptions: Disp Refills Mupirocin 2 % External Ointment (Bactroban)22 g 1 Sig: APPLY TO AFFECTED AREA(S) THREE TIMES DAILY DIRECTED Authorizing Provider: MYESHA ALLAN * Telephone Encounter - Sheryl Herring RN - 05/19/2023 3:41 PM EDTPending Prescriptions: Disp Refills Mupirocin 2 % External Ointment (Bactroban)22 g 1 Sig: APPLY TO AFFECTED AREA(S) THREE TIMES DAILY DIRECTED * Telephone Encounter - Quin Solis - 05/19/2023 12:02 PM EDT Did you pend patient's preferred pharmacy and medication before forwarding?yes Pharmacy: [facility], [facility]-[address] [place] Pending Prescriptions: Disp Refills Mupirocin 2 % External Ointment (Bactroba*22 g 1 Sig: APPLY TO AFFECTED AREA(S) THREE TIMES DAILY DIRECTED Last Visit: 04/01/2023 (in office), Visit date not found (telemedicine) Next Visit: 10/03/2023 If no future appointments scheduled, and last appointment is greater than a year ago, please schedule patient for a follow-up appointment Last date the medication was ordered: 12.20.20 Is this request for a controlled substance?No [...] Team Description 10/03/2023 Office Visit Family Medicine Myesha Allan, [address] [place] [address] 11/06/2023 Appointment Radiology 11/06/2023 Office Visit Urology Clinic, Urology [place] Resident [address] [facility] [place] [phone] Health Maintenance Due Date Last Done Comments [...] as of this encounter Visit Diagnoses Diagnosis Skin irritation Unspecified disorder of skin and subcutaneous tissue documented in this encounter Care Teams Interactive Media Designer Relationship Specialty Start Date End Date Myesha Allan, [address] [place] [address] PCP - General Internal Medicine 08/25/18 documented as of this encounter
--- OUTSIDE RECORDS SUMMARY | 2023-10-31 14:03 | External Medical Summary | Summary of Care ---
Author Name Unknown Organization [facility] Address [address] [place] [address] Phone [phone] Care Team Providers Care Septic Pump Truck Driver Name Role Phone Myesha Allan DO Primary Care Provider [phone] Reason for Visit * Reason Onset Date Comments Medication Refill 06/17/2023 Encounter Details Date Type Department Care Team Description 06/17/2023 Refill Family Medicine [address] [place] [id number] [address]esha Allan [address] [address] Pain in unspecified limb Allergies Active Allergy Reactions Severity Noted Date Comments Codeine Hives 06/20/2000 documented as of this encounter (statuses as of 06/17/2023) Medications Medication Sig Dispensed Refills Start Date End Date Status FISH OIL 1000 MG PO CAPSIndications:Mi xed dyslipidemia 2 pills each day 120 Cap 5 01/28/2014 Active Additional Information Patient taking differently: 1,000 mgOral, Reported on 04/01/2023 Blood Glucose Monitoring Suppl (in3DepthTOUCH ULTRA 2) w/Device KIT Test blood sugar [...] FOR PAIN 90 Tablet 1 06/17/2023 Active Ibuprofen 800 MG Oral Tablet (Motrin)Indication s:Pain in unspecified limb TAKE ONE TABLET BY MOUTH EVERY 8 HOURS NEEDED FOR PAIN 90 Tablet 1 10/04/2022 3 Discontinue d(Refill) documented as of this encounter (statuses as of 06/17/2023) Active Problems Problem Noted Date Controlled type 2 diabetes m dhaval [...] insulin 02/23/2019 Chronic pain of both shoulders 09/25/201 8 Status post left hip replacement 018 [...] as of this encounter (statuses as of 06/17/2023) Resolved Problems Problem Noted Date Resolved Date [...] Spasm of muscle 07/31/2007 03/01/2008 LOC PRIM [id number] 04/23/2006 04/12/20 08 ADVANCE DIRECTIVE INFORMATION 12/18/2005 [...] as of this encounter (statuses as of 06/17/2023) Immunizations Name Administration Dates Next Due COVID-19 [...] Telephone Encounter - Myesha Allan DO - 06/17/2023 3:55 PM EDTSigned Prescriptions: Disp Refills Ibuprofen 800 MG Oral Tablet (Motrin) 90 Tab*1 Sig: TAKE ONE TABLET BY MOUTH EVERY 8 HOURS NEEDED FOR PAIN Authorizing Provider: MYESHA ALLAN * Telephone Encounter - Sheryl Herring RN - 06/17/2023 2:18 PM EDTPending Prescriptions: Disp Refills Ibuprofen 800 MG Oral Tablet (Motrin) 90 Tab*1 Sig: TAKE ONE TABLET BY MOUTH EVERY 8 HOURS NEEDED FOR PAIN * Telephone Encounter - Quin Solis - 06/17/2023 12:59 PM EDT Did you pend patient's preferred pharmacy and medication before forwarding?yes Pharmacy: [facility], [facility] [place] Pending Prescriptions: Disp Refills Ibuprofen 800 MG Oral Tablet (Motrin) 90 Tab*1 Sig: TAKE ONE TABLET BY MOUTH EVERY 8 HOURS NEEDED FOR PAIN Last Visit: 04/01/2023 (in office), Visit date not found (telemedicine) Next Visit: 10/03/2023 If no future appointments scheduled, and last appointment is greater than a year ago, please schedule patient for a follow-up appointment Last date the medication was ordered: 10.04.22 Is this request for a controlled substance?No [...] Description 10/03/2023 Office Visit Family Medicine Myesha Allan[address] [place] [address] 11/06/2023 Appointment Radiology 11/06/2023 Office Visit Urology Clinic, [facility] [place] Resident [address] [facility] [place] [phone] Health Maintenance Due Date Last Done Comments [...] as of this encounter Visit Diagnoses Diagnosis Pain in unspecified limb documented in this encounter Care Teams Septic Pump Truck Driver Relationship Specialty Start Date End Date Myesha Allan, [address] [place] [address] PCP - General Internal Medicine 08/25/18 documented as of this encounter
--- OUTSIDE RECORDS SUMMARY | 2023-10-31 14:03 | External Medical Summary | Summary of Care ---
Author Name Unknown Organization [facility] Address [address] [place] [address] Phone [phone] Care Team Providers Care Outside Industrial Sales Representative Name Role Phone Constance Waddell DO Primary Care Provider Reason for Visit * Reason Onset Date Comments Med Request 06/23/2023 Encounter Details Date Type Department Care Team Description 06/23/2023 Telephone Podiatry [facility] [address] [facility] [place] [address] Michelle Salmeron, VIRA [address] [place] [address] Med Request Allergies Active Allergy [...] Spasm of muscle 07/31/2007 03/01/2008 LOC PRIM [id number] 04/23/2006 04/12/20 08 ADVANCE DIRECTIVE INFORMATION 12/18/2005 [...] encounter Miscellaneous Notes * Telephone Encounter - Yaquelin Bueno - 06/24/2023 8:21 AM EDT Called patient to confirm that Dr Salmeron did have the nurses fax his request in for medication. I told him to call back if he had any issues. Thank you * Telephone Encounter - JONNA Garcia - 06/23/2023 12:49 PM EDT Pt LVM requesting Dr. Salmeron go ahead and place the order for topical compound Rx creams ([id number]) as discussed. documented in this encounter Plan of Treatment Upcoming Encounters Date Type Specialty Care Team Description 10/03/2023 Office Visit Family Medicine Constance Waddell[address] [place] [address] 11/06/2023 Appointment Radiology 11/06/2023 Office Visit Urology Clinic, [facility] [place] Resident [address] [place] [facility] [address] Health Maintenance Due Date Last Done Comments [...] filedocumented as of this encounter Care Teams Outside Industrial Sales Representative Relationship Specialty Start Date End Date Constance Waddell, [address] [place] [address] PCP - General Internal Medicine 08/25/18 documented as of this encounter
--- OUTSIDE RECORDS SUMMARY | 2023-10-31 14:03 | External Medical Summary | Summary of Care ---
Author Name Unknown Organization [facility] Address [address] [facility] [place] [address] Care Team Providers Care Rig Welder Name Role Phone Constance Waddell DO Primary Care Provider [phone] Reason for Visit * Reason Comments NEW PATIENT Right hip & knee demetrius n Encounter Details Date Type Department Care Team Description 05/19/2023 Office Visit Orthopaedics [facility] [address] [place] [address] [facility] [address] [place] [phone] Samuel Cancino MD [address] [facility] [address] [place] [address] Primary osteoarthritis of right knee*; Hip pain, [...] Reported on 04/01/2023 Blood Glucose Monitoring Suppl (EpizymeUCH ULTRA 2) w/Device KIT Test blood sugar [...] hemoglobin A1c goal of less than 7.0% ([facility]) inject 24 units under the skin with [...] Spasm of muscle 07/31/2007 03/01/2008 LOC PRIM [id number] 04/23/2006 04/12/20 08 ADVANCE DIRECTIVE INFORMATION 12/18/2005 [...] in. We will have him discontinue the xzyn-wtc-eblebfz ibuprofen. Appropriate warnings were given. Follow-upas needed. 2. Weightbearing x-rays of the right knee were taken today and reviewed. He has severe medial compartment degenerative changes. He has hwxg-da-yiko. He has flattening of the medial femoral [...] Description 10/03/2023 Office Visit Family Medicine Constance Waddell[address] [place] [address] 11/06/2023 Appointment Radiology 11/06/2023 Office Visit Urology Clinic, Urology [place] Resident [address] [facility] [place] [address] Pending Results Name Type Priority Associated Diagnoses [...] mg documented in this encounter Care Teams Rig Welder Relationship Specialty Start Date End Date Constance Waddell, [address] [place] [address] PCP - General Internal Medicine 08/25/18 documented as of this encounter
[2023-10-31] MEDS ORDERED: ePHEDrine sulfate 50 MG/ML AMP IV PRN (14:06)
[2023-10-31] MEDS ORDERED: fentaNYL citrate PF 100 MCG/2 ML VIAL IV PRN (14:06)
[2023-10-31] MEDS ORDERED: ATROPINE SULFATE 0.1 MG/ML 10ML SYR IV PRN (14:06)
--- NOTE | 2023-10-31 14:06 | Anesthesiology Consultation ---
Date of Service October 31, 2023 Assessment & Plan Chart Review Chart Review: Acceptable Risk for Surgery Consults Requested none ASA ASA2 Proposed Anesthesia Anesthesia Type: MAC Risk / Benefits Reviewed With: PT / POA / Parent / Guardian, Accepts Plan and Informed Consent Obtained History Surgery Operation Date: 10/31/23 18:00 Proposed Procedures p Cystoscopy, Right Retrograde Pyelogram, Right Ureteral Stent Placement - Jerry Anglin MD Height/Weight Height: 6 ft Weight: 103.6 kg Allergies Allergy/AdvReac Type Severity Reaction Status Date / Time codeine Allergy Unknown PER PT, Verified 10/31/23 13:40 HAS TOLERATED PERCOCET morphine Allergy Unknown Unknown Verified 10/31/23 13:40 Medications Home Medications Medication Instructions Recorded Confirmed Last Taken omega-3 fatty acids-vitamin E 1 cap PO BID ##0 07/13/09 10/31/23 Unknown 1,000 mg capsule wbzgvorz-tn-dgvvu 300 mcg-K 60 1 tab PO DAILY ##0 04/22/15 10/31/23 Unknown mcg-lycop 600 mcg-lutein 300 mcg tablet (Centrum Silver Ultra Men's) atorvastatin 80 mg tablet 80 mg PO DAILY 10/31/23 10/31/23 Unknown fenofibrate micronized 134 mg 134 mg PO QAM 10/31/23 10/31/23 Unknown capsule ibuprofen 800 mg tablet 800 mg PO Q8H PRN Pain 10/31/23 10/31/23 Unknown insulin aspart U-100 100 unit/mL See Rx Instructions .Route .COMPLEX 10/31/23 10/31/23 Unknown (3 mL) subcutaneous pen (Novolog FlexPen U-100 Insulin aspart) insulin detemir U-100 100 unit/mL 65 unit subcut DAILY 10/31/23 10/31/23 Unknown (3 mL) subcutaneous pen (Levemir FlexPen) lisinopril 30 mg tablet 30 mg PO QAM 10/31/23 10/31/23 Unknown meclizine 25 mg tablet 25 mg PO TID PRN Vertigo 10/31/23 10/31/23 Unknown metformin 1,000 mg tablet 1,000 mg PO BID 10/31/23 10/31/23 Unknown semaglutide 2 mg/dose (8 mg/3 mL) 2 mg subcut WK 10/31/23 10/31/23 Unknown subcutaneous pen injector (Ozempic) Active Medications Generic Name Dose Route Start Last Admin Trade Name Sonuq PRN Reason Stop Dose Admin Sodium Chloride 1,000 mls @ 125 mls/hr 10/31/23 12:45 10/31/23 13:10 Nss IV 10/31/23 20:44 125 mls/hr .Q8H ESTEFANY Administration NPO Date Last Intake of Fluids: 10/31/23 Time Last Intake of Fluids: 07:30 Date Last Intake of Solids: 10/30/23 Time Last Intake of Solids: 20:00 Past Medical History Medical History Dyslipidemia HTN (hypertension) DM (diabetes mellitus), type 2 Exercise / Class Metabolic Activity II 4-5 Yardwork/Stairs/Walk up hill Past Family History Family History Other Heart disease Liver disease Past Surgical History Surgical History H/O hand surgery S/P hip replacement Past Anesthesia History No Hx of Anesthesia Complications and No Family Hx of Anesthesia Complications History of PONV No Hx of PONV and No Hx of Motion Sickness Social History Smoking Status: Never smoker Hx Alcohol Use: Yes Hx Substance Use: No Physical Exam Vital Signs Last Vital Signs Temp 97.7 F 10/31/23 13:28 Pulse 70 10/31/23 13:28 Resp 20 10/31/23 13:28 BP 162/76 H 10/31/23 13:28 Pulse Ox 97 10/31/23 13:28 O2 Del Method Room Air 10/31/23 13:28 ENMT Mouth: no dentition abnormality Thyromental Distance: > or= 3.5 Finger Breadths Mallampati Class: II Neck normal visual inspection Respiratory normal respiratory effort Auscultation: lungs clear to auscultation bilaterally Cardiovascular Rate/Rhythm: regular rate and regular rhythm Testing Laboratory Results 10/31/23 09:29 10/31/23 09:29 Urine Color Yellow 10/31/23 09:29 Urine Appearance Clear (Clear) 10/31/23 09:29 Urine pH 5.5 (4.5-7.5) 10/31/23 09:29 Ur Specific [place] 1.020 (1.000-1.030) 10/31/23 09:29 Urine Protein Trace (Negative) H 10/31/23 09:29 Urine Glucose (UA) 1+ (Negative) H 10/31/23 09:29 Urine Ketones Negative (Negative) 10/31/23 09:29 Urine Nitrite Negative (Negative) 10/31/23 09:29 Ur Leukocyte Esterase Negative (Negative) 10/31/23 09:29 Urine WBC (Auto) 1-5 /hpf (0-5) 10/31/23 09:29 Urine RBC (Auto) 10-30 /hpf (0-4) H 10/31/23 09:29 U Hyaline Cast (Auto) 1-5 /lpf (0-5) 10/31/23 09:29 U Epithel Cells (Auto) 0-5 /lpf (0-5) 10/31/23 09:29 Urine Bacteria (Auto) Negative (Negative) 10/31/23 09:29 10/31/23 13:15 POC Glucose 103 H Electrocardiogram Date: 10/31/23 Normal sinus rhythm, rate 71 bpm Possible Anterior infarct , age undetermined Abnormal ECG When compared with ECG of 19-DEC-2014 16:16, No significant change was found
[2023-10-31] MEDS ORDERED: ONDANSETRON INJ 2 MG/ML 2 ML VIAL ONE (14:21)
[2023-10-31] MEDS ORDERED: KETOROLAC 30 MG/ML VIAL ONE (14:28)
[2023-10-31] MEDS ORDERED: DIATRIZOATE MEGLUMINE 30% 100ML VIAL INSTIL ONE (14:44)
--- NOTE | 2023-10-31 14:50 | Operative Report ---
PG Post Operative Report Pre & Post Diagnosis Right urolithiasis Operation Date: 10/31/23 18:00 <No data on this case meets the specified criteria> Right urolithiasis I identified the patient and participated in the time-out.: Yes Procedure Cystoscopy, right retrograde pyelogram with radiographic interpretation, right ureteral stent placement Operation Date: 10/31/23 18:00 <No data on this case meets the specified criteria> Surgeon Jerry Anglin MD Retail Chain Store Area Supervisor None Estimated Blood Loss 0 Findings See Below Retrograde showed mild hydro. Good proximal coil. Specimens None Drains 6 Vincentian by 28 cm right ureteral stent Anesthesia Type MAC Complications none Indications 68-year-old male with a 1 cm right proximal ureteral calculus who opted for stent placement due to pain control. Description of Procedure After informed consent was obtained, the patient was transported operative suite. MAC anesthesia was induced. The patient was placed in dorsolithotomy position prepped and draped in a sterile fashion. They received preoperative ceftriaxone for antibiotic prophylaxis. An appropriate surgical timeout was performed. A 22 Vincentian rigid scope was inserted per urethra into the bladder. Álvarez cysto scopy revealed no stones or lesions. I turned my attention the right ureteral orifice and intubated this with a 5 Vincentian open-ended catheter. A right retrograde pyelogram was shot which showed mild hydronephrosis. A sensor wire was advanced into the kidney and confirmed fluoroscopically. A 6 Vincentian by 28 cm right ureteral stent was deployed with a good proximal coil in the renal pelvis and a good distal coil noted in the bladder, confirmed fluoroscopically and under direct visualization, respectively. The bladder was emptied and the scope was removed. This concluded the end of the case. All counts were correct at the end of the case. I was present, scrubbed, and actively participated for the entirety of the procedure. I attest to the content of the Intraoperative Record and any orders documented therein. Any exceptions are noted below.
--- NOTE | 2023-10-31 15:14 | Fluoroscopy Report ---
FL retrograde includes kub CLINICAL HISTORY: RT STENTright-sided retrograde cystourethrogram COMPARISON STUDY: CT of same day FLUOROSCOPY TIME: 7.9 seconds FLUOROSCOPY IMAGES: 1 EXPOSURE DOSE: 4.24 mGy FINDINGS: Proximal portion of a right ureteral stent appears to be in satisfactory positioning. The d istal portion of the stent was not imaged. Right nephrolithiasis better seen on the CT study of same day. IMPRESSION: Fluoroscopic assistance as above. ACT 112: Negative or not required by law. Electronically signed by: Mukesh Jenkins M.D. 10/31/2023 3:13 PM
--- NOTE | 2023-10-31 15:31 | Anesthesiology Progress Note ---
Date of Service October 31, 2023 Anesthesia Post Procedure Vital Signs Vital Signs: Temp Pulse Pulse Pulse Resp BP BP 10/31/23 15:20 72 18 121/62 10/31/23 15:10 79 18 110/69 10/31/23 15:00 91 H 20 123/67 10/31/23 14:54 97.2 F L 96 H 14 95/67 L 10/31/23 13:28 97.7 F 70 20 162/76 H 10/31/23 13:16 97.3 F L 73 18 167/76 H 10/31/23 12:08 71 10/31/23 11:51 10/31/23 11:49 97.9 F 66 18 151/80 H 10/31/23 09:08 97.0 F L 76 16 185/95 H Pulse Ox O2 Del Method O2 Flow Rate 10/31/23 15:20 93 Room Air 10/31/23 15:10 93 Room Air 10/31/23 15:00 99 Room Air 10/31/23 14:54 96 Oxymask 6 10/31/23 13:28 97 Room Air 10/31/23 13:16 96 10/31/23 12:08 10/31/23 11:51 94 Room Air 10/31/23 11:49 94 Room Air 10/31/23 09:08 96 Pain Intensity Right Flank: Pain Intensity: 4 Transfer of Care Handoff Completed per policy Notes Mental Status: alert / awake / arousable and participated in evaluation Patient Amnestic to Procedure: Yes Nausea / Vomiting: adequately controlled Pain: adequately controlled Airway Patency, RR, SpO2: stable & adequate BP & HR: stable & adequate Hydration State: stable & adequate Anesthetic Complications: no major complications apparent and Pt Satisfied with anesthetic care
[2023-10-31] MEDS ORDERED: MECLIZINE HCL 25 MG TAB PO PRN (16:29)
[2023-10-31] MEDS ORDERED: hydrALAZINE 10 MG TAB PO PRN (16:29)
[2023-10-31] MEDS: INSULIN ASPART PER UNIT CHARGE SC SCH ×2 (16:56→20:48)
--- NOTE | 2023-10-31 17:38 | Electrocardiogram Report ---
Test Reason : Blood Pressure : / mmHG Vent. Rate : 071 BPM Atrial Rate : 071 BPM P-R Int : 168 ms QRS Dur : 086 ms QT Int : 372 ms P-R-T Axes : 032 076 035 degrees QTc Int : 404 ms Normal sinus rhythm Poor R wave progression, consider anterior [place] vs. lead placement vs. LVH Abnormal ECG When compared with ECG of 19-DEC-2014 16:16, No significant change was found Confirmed by Zeyad Lee ([id number]) on 10/31/2023 5:38:30 PM Referred By: Confirmed By:Michelet Lee
[2023-10-31] MEDS: DOCUSATE SODIUM 100 MG CAP PO SCH (20:33)
[2023-10-31] MEDS: LANTUS PER UNIT CHARGE SQ SCH (20:48)
[2023-11-01 06:29] LABS: Hemoglobin 11.7 g/dl (14.0-18.0); Mean Corpuscular Hgb Conc 33.4 g/dL (32.0-36.0); Mean Corpuscular Volume 92.6 fL (80.0-100.0); Mean Platelet Volume 10.5 fL (9.4-12.4); Platelet Count 127 K/uL (130-400); RDW Coefficient of Variation 13.2 % (11.5-14.5); RDW Standard Deviation 44.6 fL (36.4-46.3); Red Blood Count 3.78 M/uL (4.70-6.10); White Blood Count 7.67 K/ul (4.8-10.8)
[2023-11-01 06:33] LABS: BUN Creatinine Ratio 16.7 (10-20); Calcium 8.5 mg/dl (8.6-10.3); Creatinine Clr Calc Pharmacy 59.4 ml/min; Est GFR (African American) 56.6 ml/min; Est GFR (Non-African American) 48.9 ml/min; Potassium 4.3 mmol/L (3.5-5.1)
[2023-11-01 07:47] LABS: Estimated Average Glucose 180 mg/dl; Hemoglobin A1C 7.9 % (4.5-5.6)
[2023-11-01] MEDS: INSULIN ASPART PER UNIT CHARGE SC SCH ×4 (09:01→20:04)
[2023-11-01] MEDS: LANTUS PER UNIT CHARGE SQ SCH ×2 (09:02→20:12)
[2023-11-01] MEDS: TAMSULOSIN HCL 0.4 MG CAP PO SCH (09:07)
[2023-11-01] MEDS: ATORVASTATIN 40 MG TAB PO SCH (09:08)
[2023-11-01] MEDS: DOCUSATE SODIUM 100 MG CAP PO SCH ×2 (09:08→19:59)
[2023-11-01] MEDS: CEROVITE ADV FORMULA TAB PO SCH (09:08)
[2023-11-01] MEDS ORDERED: SODIUM CHLORIDE 0.9% 1,000 ML IV SCH (09:15)
--- NOTE | 2023-11-01 09:24 | Urology Progress Note ---
Date of Service November 01, 2023 Assessment & Plan (1) Hydronephrosis with urinary obstruction due to ureteral calculus: Plan 68-year-old male admitted with intractable right flank pain secondary to a 10 mm obstructing right ureteral stone. He is status post cystoscopy with right ureteral stent placement on 10/31/2022. Tolerating the stent well Stable for discharge home from urologic perspective Urology has sent prescriptions for pain medication, Flomax and Ditropan Message is already been sent to schedule outpatient follow-up to discuss stone treatment Urology to sign off Admission and Anticipated Discharge Date Admission Date: October 31, 2023 Subjective Afebrile with stable vitals. Labs show a white blood cell count of 7.6, down from 11.8. Creatinine stable at 1.44, yesterday was 1.38. Denies any pain from the stent. Voiding spontaneously. Review of Systems Review of Systems: 14 point review of systems negative outs luly of what is listed above in HPI Physical Exam Physical Exam: General: Alert and oriented, no acute distress HEENT: Normocephalic, mucous membranes moist Pulmonary: Nonlabored respirations Abdomen: Nondistended Extremities: Moves all 4 spontaneously Neuro: No gross deficits Skin: Warm, dry, no rashes noted Results & Data Vital Signs (Past 12 Hours) Vital Signs Temp Pulse Resp BP BP Pulse Ox O2 Del Method 11/01/23 07:07 36.4 C L 69 16 113/61 95 Room Air 11/01/23 03:45 36.4 C L 73 18 122/63 94 Room Air 10/31/23 23:17 36.5 C 67 18 154/76 H 131/73 94 Room Air 10/31/23 21:29 36.5 C 67 18 160/82 H 135/72 94 Room Air PG Care Time/CCT Total # of Minutes Spent Total Time Spent with Patient: Total time spent is greater than 50% in coordination of care (as documented) at patient's floor/unit and/or counseling patient: Coding Level of Care Code 25866 SUB INP/OBS CARE 2/35MIN Diagnoses Hydronephrosis with urinary obstruction due to ureteral calculus N13.2
[2023-11-01] MEDS: SODIUM CHLORIDE 0.45 % 1,000 ML IV SCH ×2 (11:55→23:41)
--- NOTE | 2023-11-01 13:50 | Hospitalist Progress Note ---
Date of Service November 01, 2023 Assessment & Plan (1) SHANEL (acute kidney injury): Plan 68-year-old male with PMH of type 2 diabetes, hyperlipidemia, hypertension, history of fatty liver disease, osteoarthritis and other medical problems as below presents from home with flank pain and was found to have obstructing R ureteral stone and SHANEL. 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 This causes moderate right hydronephrosis Urology evaluated, status post right ureteral stent 10/31/2023. Patient voiding spontaneously, reports significant improvement in his pain. bladder scan PRN, Flomax, PRN Pyridium, pain control SHANEL (acute kidney injury): Cr elevated at 1.38 at admission (baseline ~ 1.0) 2/2 ureteral obstruction vs prenal component due to poor appetite surrounding the event Hold lisinopril and metformin. s/p IVF. Creatinine elevated to 1.44 today, half NS at 80 mils an hour. BMP in AM. DM (diabetes mellitus), type 2: A1c 8.0 on 10/03/23 , 7.9 this admission. Continue basal/bolus insulin regimen while in-patient Holding Ozempic BSG AC HS HTN (hypertension): Elevated 2/2 pain. Not on any antihypertensives at home. Added PRN PO hydralazine Abnormal CT of the abdomen: CT abd/pelvis with incidental finding of hepatomegaly and hepatic steatosis. Also with nonspecific haziness throughout the central mesentery with prominent subcentimeter lymph nodes. This was not seen on 07/13/2009 and could represent a nonspecific panniculitis. Consider a precautionary follow-up abdominal CT scan in 6-12 months time for reassessment Dyslipidemia: Chronic, stable. Continue statin DVT Ppx: SCDs, ambulation, likely dc roz. Code status: FULL PCP: [facility] Dispo: Admit to med/surg, DC pending improvement in renal fxn Admission and Anticipated Discharge Date Admission Date: October 31, 2023 Subjective Patient was seen and examined at bedside. Patient was lying in bed, patient's by bedside. On room air, NAD, reports no new acute event overnight. Patient reports significant improvement in his flank pain. Denies any fever/chills/chest pain. Reports some hematuria. Physical Exam Physical Exam: GENERAL: Alert and oriented x3. NAD, on RA. Obese class I. HEENT: No pallor, no icterus. Pupils equal, round and reactive to light. Oral mucosa moist. NECK: No JVD, no neck masses. HEART: S1 and S2 heard. Regular rate and rhythm. No murmur, no gallop. RESPIRATORY SYSTEM: Normal AP diameter. No accessory muscle use. No wheezing, no crackles. ABDOMEN: Soft, bowel sounds present, nontender, no distention. CENTRAL NERVOUS SYSTEM: No facial droop. Speech is clear. Obeys simple commands. Moves extremities. EXTREMITIES: No edema, no erythema seen. Results & Data Results & Data Vital Signs (Past 12 Hours) Vital Signs Temp Pulse Resp BP BP Pulse Ox O2 Del Method 11/01/23 07:07 36.4 C L 69 16 113/61 95 Room Air 11/01/23 03:45 36.4 C L 73 18 122/63 94 Room Air
[2023-11-02 07:40] LABS: Hematocrit (blood only) 38.4 % (42.0-52.0); Hemoglobin 12.7 g/dl (14.0-18.0); Mean Corpuscular Hemoglobin 30.3 pg (25.0-34.0); Mean Corpuscular Hgb Conc 33.1 g/dL (32.0-36.0); Mean Corpuscular Volume 91.6 fL (80.0-100.0); Mean Platelet Volume 10.4 fL (9.4-12.4); Platelet Count 134 K/uL (130-400); RDW Coefficient of Variation 13.2 % (11.5-14.5); RDW Standard Deviation 44.7 fL (36.4-46.3); Red Blood Count 4.19 M/uL (4.70-6.10); White Blood Count 7.12 K/ul (4.8-10.8)
[2023-11-02] MEDS: DOCUSATE SODIUM 100 MG CAP PO SCH (07:56)
[2023-11-02] MEDS: TAMSULOSIN HCL 0.4 MG CAP PO SCH (07:56)
[2023-11-02] MEDS: ATORVASTATIN 40 MG TAB PO SCH (07:57)
[2023-11-02] MEDS: CEROVITE ADV FORMULA TAB PO SCH (07:57)
[2023-11-02 08:03] LABS: BUN Creatinine Ratio 15.5 (10-20); Calcium 8.8 mg/dl (8.6-10.3); Creatinine Clr Calc Pharmacy 77.8 ml/min; Est GFR (African American) 78.4 ml/min; Est GFR (Non-African American) 67.7 ml/min; Magnesium 1.6 mg/dl (1.7-2.4); Phosphorus 2.8 mg/dl (2.5-4.9); Potassium 4.3 mmol/L (3.5-5.1)
[2023-11-02] MEDS: INSULIN ASPART PER UNIT CHARGE SC SCH ×2 (08:36→12:29)
[2023-11-02] MEDS: LANTUS PER UNIT CHARGE SQ SCH (08:36)
[2023-11-02] MEDS ORDERED: MAGNESIUM SULFATE / D5W 1 GM/100 ML BAG IV ONE (08:58)
--- NOTE | 2023-11-02 12:27 | Discharge Summary ---
Date of Service November 02, 2023 Admission HPI Per Admitting Provider This is a 68-year-old male with PMH of type 2 diabetes, hyperlipidemia, hypertension, history of fatty liver disease, osteoarthritis and other medical problems as below presents from home with flank pain. Developed pain of lower R back radiating forward to flank and R side of bladder that has progressed in severity over the past few days, prompting his visit to the ED. Pain has improved with Toradol in ED and mainly recurs with movement. Increased urinary urgency. In the past month, he reports 2 episodes of hematuria but has not noted any today. H/o kidney stones years ago. + Nauseated this morning but no vom iting. No fever, lightheadedness, headache, CP, SOB, abd pain, dysuria. No bowel movement in 2 days. Had episode of vertigo when he rolled over in bed and it resolved after repositioning a dose of meclizine. Admission Exam Per Admitting Provider Vitals signs as noted above General Appearance:Obese, no apparent distress Head: normocephalic, Atraumatic Eyes: normal inspection, EOMI Neck: supple, Trachea midline Respiratory/Chest: Normal breath sounds, CTA, No accessory muscle use Cardiovascular: S1, S2, No murmur Abdomen/GI:Soft, Non tender, + protuberant, bowel sounds present Extremities/Musculoskeletal:normal inspection, no edema Neurologic/Psych:AAOX3, grossly no focal neurological deficits Skin: normal color, warm Principal Diagnosis Hydronephrosis with urinary obstruction due to ureteral calculus Renal colic on right side Acute kidney injury Discharge Exam GENERAL: Alert and oriented x3. NAD, on RA. Obese class I. HEENT: No pallor, no icterus. Pupils equal, round and reactive to light. Oral mucosa moist. NECK: No JVD, no neck masses. HEART: S1 and S2 heard. Regular rate and rhythm. No murmur, no gallop. RESPIRATORY SYSTEM: Normal AP diameter. No accessory muscle use. No wheezing, no crackles. ABDOMEN: Soft, bowel sounds present, nontender, no distention. CENTRAL NERVOUS SYSTEM: No facial droop. Speech is clear. Obeys simple commands. Moves extremities. EXTREMITIES: No edema, no erythema seen. Discharge Data Allergies Allergy/AdvReac Type Severity Reaction Status Date / Time codeine Allergy Unknown PER PT, Verified 10/31/23 13:40 HAS TOLERATED PERCOCET morphine Allergy Unknown Unknown Verified 10/31/23 13:40 Consultations 10/31/23 11:55 ED Decision to Admit Stat 10/31/23 11:58 Consult Urology Routine Procedures Performed Operation Date: 10/31/23 18:00 Actual Procedures p Cystoscopy, Right Retrograde Pyelogram, Right Ureteral Stent Placement(Right) - Jerry Anglin MD Ordered Studies 10/31/23 [place] retrograde includes kub Routine 10/31/23 09:21 CT stones [CT abd pelvis wo con] Stat Hospital Course (1) SHANEL (acute kidney injury): Plan 68-year-old male with PMH of type 2 diabetes, hyperlipidemia, hypertension, history of fatty liver disease, osteoarthritis and other medical problems as below presents from home with flank pain and was found to have obstructing R ureteral stone and SHANEL. 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 This causes moderate right hydronephrosis Urology evaluated, status post right ureteral stent 10/31/2023. Patient voiding spontaneously, reports significant improvement in his pain. Patient hemodynamically stable, being discharged today, will need to follow-up with urology in 1 to 2 weeks time upon discharge. SHANEL (acute kidney injury): Cr elevated at 1.38 at admission (baseline ~ 1.0) 2/2 ureteral obstruction vs pre renal component due to poor appetite surrounding the event Hold lisinopril and metformin. s/p IVF. Creatinine improved back to baseline. Resume home medications. DM (diabetes mellitus), type 2: A1c 8.0 on 10/03/23 , 7.9 this admission. Continue basal/bolus insulin regimen while in-patient Holding Ozempic BSG AC HS HTN (hypertension): Elevated 2/2 pain. Not on any antihypertensives at home. Added PRN PO hydralazine Abnormal CT of the abdomen: CT abd/pelvis with incidental finding of hepatomegaly and hepatic steatosis. Also with nonspecific haziness throughout the central mesentery with prominent subcentimeter lymph nodes. This was not seen on 07/13/2009 and could represent a nonspecific panniculitis. Consider a precautionary follow-up abdominal CT scan in 6-12 months time for reassessment Dyslipidemia: Chronic, stable. Continue statin DVT Ppx: SCDs, ambulation, likely dc roz. Code status: FULL PCP: [facility] Patient is being discharged to home with following instruction at the point of discharge: Follow-up with your primary care physician within a week time and likely you will need labs CBC/CMP/magnesium/phosphorus. Follow-up with urology in 1 to 2 weeks time upon discharge. While inpatient, your CT scan of the abdomen pelvis showed "nonspecific haziness throughout the central mesentery with prominent subcentimeter lymph nodes" i.e. some mesenteric lymphadenopathy. Recommendation is to have precautionary follow- up abdominal CT scan in 6-12 months time for reassessment. Coordinate with the PCP office to set up the test. Take your medications as prescribed. Please make sure that you are able to get your medications today by calling your pharmacy before you leave the hospital so that your treatment continuity is not broken. Home Health Attestation I certify that this patient is under my care and that I, or a physicians executive assistant working with me, had a face to-face encounter that meets the home health [id number] encounter requirements with this patient. The encounter with the patient was in whole, or in part, for the following medical condition, which is the primary reason for home health care (list medi brittney condition): I certify that, based on my findings, the following services are medically necessary home health services: My clinical findings support the need for the above services because: Further, I certify that my clinical findings support that this patient is homebound (i.e. absences from home require considerable and taxing effort and are for medical reasons or buddhist services or infrequently or of short duration when for other reasons) because: Certification for Home Health Services: Based on the above findings, I certify that this patient is confined to the home and needs intermittent nursing home care, physical therapy and/or speech ther apy or continues to need occupational therapy. The patient is under my care, and I have initiated the establishment of the plan of care. This patient will be followed by a physician who will periodically review the plan of care. Total Time Total Time Spent Total Time Spent (In Minutes): 45 Discharge Plan Discharge Items Patient Disposition: Home - Self-Care Reason For Visit: OBSTRUCTING URETERAL STONE Discharge Diagnosis: Hydronephrosis with urinary obstruction due to ureteral calculus Renal colic on right side Acute kidney injury Activity: Resume your previous activity Non-emergency contact: Primary Care Provider Call non-emergency contact if: you have any medication questions, your symptoms worsen and your temperature is above 101.5 Follow-up/Referrals: Constance Waddell, [Primary Care Provider] - Diet: Carb Consistent or DM2 Addtl Attending Provider Instructions: Take Tylenol and ibuprofen as needed for pain. Oxycodone for breakthrough pain. Continue taking Flomax as this can help with stent discomfort. Oxybutynin as needed, however this can cause dry mouth, constipation and difficulty urinating so only use when necessary. If you are not having bother from the stent, you do not need to take any occasions. MiraLAX [id number] as needed for constipation. It is normal to have blood in his urine while the stent is in place. The more activity perform, the bloody or your urine will be. This is okay as long as you are able to urinate. You will be called regarding a follow-up appointment to determine stone treatment. Call the office earlier with fevers or uncontrolled pain. 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 Follow-up with urology in 1 to 2 weeks time upon discharge. While inpatient, your CT scan of the abdomen pelvis showed "nonspecific haziness throughout the central mesentery with prominent subcentimeter lymph nodes" i.e. some mesenteric lymphadenopathy. Recommendation is to have precautionary follow- up abdominal CT scan in 6-12 months time for reassessment. Coordinate with the PCP office to set up the test. Take your medications as prescribed. Please make sure that you are able to get your medications today by calling your pharmacy before you leave the hospital so that your treatment continuity is not broken. Pending Studies at Discharge: Yes Stand-Alone Forms: My [employer], Smoking Cessation Medications and DC Order Prescriptions: New oxycodone 5 mg tablet 5 mg PO Q6H PRN (Reason: pain) Qty: 7 0RF tamsulosin [Flomax] 0.4 mg capsule 0.4 mg PO DAILY Qty: 30 0RF oxybutynin chloride 5 mg tablet extended release 24hr 5 mg PO DAILY Qty: 14 0RF docusate sodium 100 mg Capsule 100 mg PO BID PRN (Reason: constipation) Qty: 20 0RF Continued Fish Oil 1,000 mg Capsule 1 cap PO BID Qty: 0 Centrum Silver Ultra Men's [phone] mcg Tablet 1 tab PO DAILY Qty: 0 atorvastatin 80 mg tablet 80 mg PO DAILY ibuprofen 800 mg tablet 800 mg PO Q8H PRN (Reason: Pain) fenofibrate micronized 134 mg capsule 134 mg PO QAM metformin 1,000 mg tablet 1,000 mg PO BID lisinopril 30 mg tablet 30 mg PO QAM insulin aspart U-100 [Novolog FlexPen U-100 Insulin] 100 unit/mL (3 mL) i nsulin pen See Rx Instructions .ROUTE .COMPLEX Rx Instructions: inject 24 units under the skin with breakfast and 20 units with lunch and 30 units with supper. Per sliding scale Levemir FlexPen 100 unit/mL (3 mL) insulin pen 65 unit SUBCUT DAILY Ozempic 2 mg/dose (8 mg/3 mL) pen injector 2 mg SUBCUT WK Rx Instructions: takes on Friday meclizine 25 mg Tablet 25 mg PO TID PRN (Reason: Vertigo) Discharge Orders: Discharge Order (Routine); Ordered 11/02/23 Ordered By: Archie Miranda/Other Patient Handouts: Managing Type 2 Diabetes Admission Data Admit Date/Time: 10/31/23 11:55 Attending Provider: Archie Craig Admit Provider: Danny Marroquin Primary Care Provider: Constance Waddell Other Providers: Danny Marroquin Other Interventions: Discharge Summary Assessment (RN) Last Done: 11/02/23 09:56
== END 2023-11-02 13:05 | disposition home or self-care (01) | DRG 661 ==
LOC: ED 09:04 → PACUINP 11:55 → SUATTDRO 11:55 → 3N 13:22